=== PATIENT | male | born 1975 | race Caucasian/White ===

== ENCOUNTER 2020-08-07 12:07 | Outpatient (RCR) | payer OTHER, SELFPAY | END 2020-10-08 23:59 | LOC: IMMUN 12:07 | PROVIDERS: PCP Internal Medicine; Visit Provider Family Medicine | DX: Z23 Encounter for immunization (principal) | CPT/HCPCS: 0001A; 0002A; 91300 ==

== ENCOUNTER 2022-05-06 22:08 | Inpatient (IN) | payer OTHER, SELFPAY ==
[2022-05-06 22:09] VITALS: BP 169/103; PULSE 150; RESP 28; TEMP 37.1; O2SAT 97; BMI 46.1
--- NOTE | 2022-05-06 22:11 | EKG12_ITS ---
Test Reason : DYSRHYTHMIA Blood Pressure : / mmHG Vent. Rate : 143 BPM Atrial Rate : 143 BPM P-R Int : 132 ms QRS Dur : 076 ms QT Int : 284 ms P-R-T Axes : 055 029 029 degrees QTc Int : 438 ms Sinus tachycardia Otherwise normal ECG Confirmed by AMANDA BORJAS, JULIAN ([id number]), editorial cartoonist GUSTAVO JUDGE ([id number]) on 05/11/2022 10:33:27 AM Referred By: DI Confirmed By:GLORIA PATEL MD
[2022-05-06 23:16] VITALS: RESP 28; O2SAT 94
[2022-05-06 23:18] VITALS: BP 161/82; PULSE 138; RESP 24; TEMP 39.6; O2SAT 97
[2022-05-06] MEDS: Acetaminophen 500 MG Tablet 1000 MG PO (23:27)
[2022-05-06] MEDS: 0.9% Normal Saline 1,000 ML 999 ML IV (23:29)
[2022-05-07] VITALS (18 sets, daily range): BP systolic 94–174; BP diastolic 41–95; PULSE 97–126; RESP 20–40; TEMP 36.8–38.7; O2SAT 36–97; BMI 46.1
--- NOTE | 2022-05-07 00:03 | RAD_ITS ---
STUDY: X-RAY CHEST REASON FOR EXAM: Male, 46 years old. cough TECHNIQUE: Single AP portable view of the chest. COMPARISON: None. FINDINGS: The lungs are clear and expanded. There is no demonstrated pleural abnormality. Normal size heart. Normal mediastinum and aleena. Normal visualized pulmonary arteries. Normal visualized aortic arch and descending thoracic aorta. Normal visualized thoracic spine. Normal visualized ribs, clavicles, and shoulders. There is no demonstrated abnormality of the visualized soft tissue structures of the upper abdomen. RAD/Chest PA and Lateral IMPRESSION: Normal x-ray examination of the chest. Electronically Signed: Jordi Denton MD at 0:33 EST ,
[2022-05-07 00:13] LABS: Absolute Lymphocyte Count 0.83 X10^3/uL (0.83-4.51); Absolute Neutrophil Count 19.1 X10^3/uL (2.0-7.7); Basophil# 0.06 X10^3/uL; Basophil% 0.3 % (0-1); Eosinophil# 0.02 X10^3/uL; Eosinophils% 0.1 % (0-5); Hematocrit 48.8 % (40-54); Hemoglobin 16.1 g/dL (13.0-16.5); Lymphocyte # 0.83 X10^3/ul (0.83-4.51); Mean Corpuscular Hgb 27.2 pg (27.0-32.0); Mean Corpuscular Volume 82.6 fL (80-94); Mean Platelet Vol. 12.5 fl (6.2-12.0); Monocyte# 0.85 X10^3/uL; Monocyte% 4.1 % (0-10); NRBC Flagged by Analyzer 0 % (0-5); Neutrophil # 19.06 X10^3/uL (2.7-7.7); Neutrophil % 90.9 % (47-70); POSITIVE COUNT YES; Platelet Count 64 K/mm3 (150-450); RBC Distribution Width CV 13.2 % (11.6-14.6); RBC Distribution Width SD 39.2 fl (35.1-43.9); Red Blood Count 5.91 M/mm3 (4.6-6.2); White Blood Count 20.9 K/mm3 (4.4-11.0)
[2022-05-07 00:21] LABS: Differential Indicated SCAN CRITERIA MET
[2022-05-07 00:25] LABS: Anion Gap 7 (5-15); BUN 17 mg/dL (7-18); BUN/Creat Ratio 15.2 RATIO (10-20); Calcium,Total 9.4 mg/dL (8.5-10.1); Chloride 103 mmol/L (98-107); Creatinine, Serum 1.12 mg/dL (0.70-1.30); EST Glomerular Filtration Rate 74 mL/min (>60); Est Glom Filt Rate - Afr Amer 90 mL/min (>60); Glucose 136 mg/dL (74-106); Potassium 4.5 mmol/L (3.5-5.1); Sodium Level 136 mmol/L (136-145)
--- NOTE | 2022-05-07 00:52 | CT_ITS ---
STUDY: CTA CHEST REASON FOR EXAM: Male, 46 years old. cough RADIATION DOSAGE (If Supplied By Facility): CTDIvol = ( 36.66 ) mGy, DLP = ( 795.00 ) mGycm TECHNIQUE: The examination was performed with the intravenous administration of IV 100mL Isovue-370. Post-processing of the angiographic images was performed, with multiplanar reformation and 3D reconstruction. Individualized dose optimization techniques were used for this CT. COMPARISON: None. FINDINGS: Nonspecific nodule in the right thyroid lobe measures 1 cm. Normal enhancement of the main pulmonary artery and right and left pulmonary arteries. There is limited enhancement of the bilateral peripheral pulmonary arteries. There is no demonstrated pulmonary embolism. Normal thoracic aorta and visualized great vessels. There is no demonstrated aortic dissection. Normal heart and pericardium. Normal mediastinum. Normal hilar regions. Normal visualized trachea and bronchi. The lungs are well expanded. Normal pulmonary parenchyma. Normal pleura. Normal chest wall structures. Normal osseous structures. Normal visualized upper abdomen. CT/CTA Chest W/WO Contrast IMPRESSION: Nonspecific nodule in the right thyroid lobe measures 1 cm. There is no demonstrated pulmonary embolism or arterial dissection. Electronically Signed: Jordi Denton MD at 2:11 EST ,
[2022-05-07 01:36] LABS: Mucous, Urine 0 SEEN /hpf (<or=2+); Red Blood Cells-Urine 0 SEEN /hpf (0-5)
[2022-05-07] MEDS: 0.9% Normal Saline 1,000 ML 999 ML IV ×2 (01:51→04:19)
[2022-05-07 02:02] LABS: Color, Urine Yellow (Yellow); Glucose, Dipstick Normal (Normal); Ketone-Dipstick Negative (Negative); Leukocyte Esterase-Dipstick 500 /ul (Negative); Nitrite-Dipstick Positive (Negative); Occult Blood-Urine Negative /ul (Negative); Protein-Dipstick 30 mg/dl (Negative); Urine Bilirubin Dipstick Negative (Negative); Urine Clarity Clear (Clear); Urine Urobilinogen Normal (Normal)
[2022-05-07 02:23] LABS: Differential Comment SCANNED; Platelet Estimate MOD INC (ADEQ); Platelet Morphology LARGE
[2022-05-07 02:27] LABS: Lactic Acid 2.1 mmol/L (0.4-1.9)
--- NOTE | 2022-05-07 02:47 | EX.ED.DYSGE1 ---
HPI History of Present Illness Chief Complaint: Shortness of Breath Narrative Narrative: Patient is a 46-year-old male who reports no significant past medical history. He states that he was in a meeting today when he began to feel chilled. He states with this he had mild cough and sensation of shortness of breath. He states that secondary to the symptoms he comes in for evaluation. He denies any known sick contacts and he denies any chest pain or abdominal pain nausea vomiting or diarrhea PFSH PFSH Medical History no medical history no medical history Allergy/AdvReac Type Severity Reaction Status Date / Time No Known Allergies Allergy Verified 05/06/22 22:09 Social History Smoking Status: Never smoker ROS ROS ED Constitutional Constitutional ED: Reports chills and fever(s) ENT ENT ED: Denies rhinorrhea or sore throat Cardiovascular Cardiovascular: Reports racing heartbeat; Denies chest pain Respiratory/Chest Respiratory/Chest: Reports cough and dyspnea Gastrointestinal Gastrointestinal: Denies abdominal pain, diarrhea, nausea or vomiting Genitourinary Genitourinary ED: Denies dysuria or hematuria Musculoskeletal Musculoskeletal: Reports myalgias Integumentary Denies rash Neurologic Neurologic: Denies headache(s) Hematologic/Lymphatic Hematologic/Lymphatic: Denies easy bleeding or easy bruising EXAM Physical Exam Const Vital Signs: 05/06/22 22:09 05/06/22 22:11 05/06/22 23:16 Temperature 98.8 F Temperature Source Temporal Pulse Rate 150 H Respiratory Rate 28 H 28 H Respiratory Effort Respiratory Depth Respiratory Pattern Blood Pressure 169/103 H Blood Pressure Mean 125 Pulse Ox 97 94 Oxygen Delivery Method Room Air Room Air Room Air 05/06/22 23:18 05/07/22 00:43 05/07/22 00:00 Temperature 103.2 F H Temperature Source Oral Pulse Rate 138 H Respiratory Rate 24 H 32 H Respiratory Effort Short of Breath Respiratory Depth Normal Respiratory Pattern Tachypnea Blood Pressure 161/82 H Blood Pressure Mean 108 Pulse Ox 97 Oxygen Delivery Method Room Air Room Air 05/07/22 01:00 05/07/22 01:56 05/07/22 02:04 Temperature 101.1 F H 101.1 F H Temperature Source Oral Oral Pulse Rate 125 H 120 H 125 H Respiratory Rate 33 H 35 H 40 H Respiratory Effort Respiratory Depth Respiratory Pattern Blood Pressure 116/49 L 124/70 H 124/70 H Blood Pressure Mean 71 88 88 Pulse Ox 96 97 97 Oxygen Delivery Method Room Air Room Air Room Air 05/07/22 02:56 05/07/22 03:00 Temperature 101.5 F H 101.6 F H Temperature Source Oral Oral Pulse Rate 126 H 125 H Respiratory Rate 30 H 33 H Respiratory Effort Respiratory Depth Respiratory Pattern Blood Pressure 113/41 L 106/94 H Blood Pressure Mean 65 98 Pulse Ox 96 36 Oxygen Delivery Method Room Air Room Air Positive well nourished, well developed and obese General Appearance ED: well developed Nutritional Appearance: obese HEENT Reports moist mucous membranes Eyes PERRL and EOMs intact bilaterally Neck supple and no JVD Neck Narrative: Positive anterior cervical lymphadenopathy noted Chest Wall palpation of chest normal Resp clear to auscultation bilaterally Resp Narrative: Patient has mild tachypnea but otherwise no nasal flaring retractions or accessory muscle use and breath sounds are overall clear to auscultation Cardio regular rhythm Rate: tachycardic and other Other Details: Radial pulses are plus 2 out of 4 bilaterally are equal and symmetric GI normal to inspection, nondistended, normoactive bowel sounds, non-tender, non-distended and no masses GI Narrative: No voluntary guarding or rigidity no pulsatile mass Auscultation: normoactive bowel sounds Palpation: soft Extremity normal to inspection Extremity Narrative: No asymmetric edema no pitting edema negative Homans' sign bilaterally Neuro oriented x3 and CN's II-XII intact bilaterally Sensorium / Orientation: alert Psych mental status grossly normal Skin no rashes or lesions noted MDM MDM MDM Narrative Medical decision making narrative: Patient presented to the ER awake and alert but was febrile with a temperature up to 103 and tachycardic consistent with this. His constellation of symptoms is most likely viral in nature and therefore COVID and influenza swab were obtained. However because of the high fever and tachycardia I did elect to perform basic laboratory and imaging studies. Patient has leukocytosis at approximately 21 with thrombocytopenia. I do not have any old lab values to compare to but patient reports no past medical history. His lactic acid is also slightly elevated 2.1. Because of the tachycardia and high white count with negative viral swabs and chest x-ray elected to perform a CTA to make sure there is no missed pneumonia. CTA of the chest was negative. As he has no abdominal pain and no meningeal signs I do not feel the need for a lumbar puncture or CT of the abdomen and pelvis. Patient's urine sample did show changes consistent with infection and secondary to this it was sent for culture and he was started on Rocephin. At this time as he is qualifying for sepsis based on his fever white count and tachycardia I do not feel would be appropriate to discharge him home and therefore he will be kept in the hospital while blood cultures and urine culture are pending and he can receive IV antibiotics and fluids as needed. The plan of care was discussed with the patient and family and they are agreeable to this. Internal medicine was contacted as well and they agreed except the patient at this time Lab Data Attestation: I reviewed the patient's lab results. Labs: Laboratory Results - last 24 hr 05/07/22 05/07/22 05/07/22 00:05 00:05 01:22 WBC 20.9 H RBC 5.91 Hgb 16.1 Hct 48.8 MCV 82.6 MCH 27.2 MCHC 33.0 RDW Std Deviation 39.2 RDW Coeff of Daniel 13.2 Plt Count 64 L MPV 12.5 H Immature Gran % (Auto) 0.600 Neut % (Auto) 90.9 H Lymph % (Auto) 4.0 L [place] % (Auto) 4.1 Eos % (Auto) 0.1 Baso % (Auto) 0.3 Absolute Neuts (auto) 19.1 H Absolute Lymphs (auto) 0.83 Nucleated RBC % 0 Differential Comment SCANNED Platelet Estimate MOD INC Plt Morphology Comment LARGE Sodium 136 Potassium 4.5 Chloride 103 Carbon Dioxide 26.0 Anion Gap 7 BUN 17 Creatinine 1.12 Estim Creat Clear Calc 96.40 Est GFR (MDRD) Af Amer 90 Est GFR (MDRD) Non-Af 74 BUN/Creatinine Ratio 15.2 Glucose 136 H Lactic Acid 2.1 H* Calcium 9.4 Magnesium 2.0 Urine Color Urine Clarity Urine pH Ur Specific [place] Urine Protein Urine Glucose (UA) Urine Ketones Urine Occult Blood Urine Nitrite Urine Bilirubin Urine Urobilinogen Ur Leukocyte Esterase Urine RBC Urine WBC Ur Squamous Epith Cells Urine Bacteria Urine Mucus 05/07/22 01:28 WBC RBC Hgb Hct MCV MCH MCHC RDW Std Deviation RDW Coeff of Daniel Plt Count MPV Immature Gran % (Auto) Neut % (Auto) Lymph % (Auto) [place] % (Auto) Eos % (Auto) Baso % (Auto) Absolute Neuts (auto) Absolute Lymphs (auto) Nucleated RBC % Differential Comment Platelet Estimate Plt Morphology Comment Sodium Potassium Chloride Carbon Dioxide Anion Gap BUN Creatinine Estim Creat Clear Calc Est GFR (MDRD) Af Amer Est GFR (MDRD) Non-Af BUN/Creatinine Ratio Glucose Lactic Acid Calcium Magnesium Urine Color Yellow Urine Clarity Clear Urine pH 7.0 Ur Specific [place] 1.010 Urine Protein 30 H Urine Glucose (UA) Normal Urine Ketones Negative Urine Occult Blood Negative Urine Nitrite Positive H Urine Bilirubin Negative Urine Urobilinogen Normal Ur Leukocyte Esterase 500 H Urine RBC 0 SEEN Urine WBC 0-5 SEEN Ur Squamous Epith Cells 0-5 SEEN Urine Bacteria 1+ Urine Mucus 0 SEEN Radiography Diagnostic Testing: Clinical Impression(s) from Imaging Studies Chest X-Ray 05/07/22 00:03 IMPRESSION: Normal x-ray examination of the chest. Electronically Signed: Jordi Denton MD at 0:33 EST , Chest CTA 05/07/22 00:52 IMPRESSION: Nonspecific nodule in the right thyroid lobe measures 1 cm. There is no demonstrated pulmonary embolism or arterial dissection. Electronically Signed: Jordi Denton MD at 2:11 EST , Chest x-ray as interpreted by the emergency medicine physician reveals no acute infiltrate pneumothorax or pleural effusion Discharge Plan Triage Chief Complaint: Shortness of Breath ED Provider: Parveen Dos Santos Dx/Rx/DC Orders Clinical Impression: Urinary tract infection, Septicemia, Leukocytosis, Thrombocytopenia, Pyrexia Primary Care Provider: Kamilla Alberto Referrals: Kamilla Alberto DO [Primary Care Provider] - Disposition Disposition: Acute Care [facility]
[2022-05-07 02:48] LABS: Bacteria 1+ /hpf (None Seen); Squamous Epithelial Cells - UA 0-5 SEEN /hpf (0-5); White Blood Cells 0-5 SEEN /hpf (0-5)
[2022-05-07] MEDS: Ibuprofen 600 MG Tablet PO (03:19)
[2022-05-07] MEDS: Ceftriaxone 1 GM/50 ML BAG IV (03:20)
--- NOTE | 2022-05-07 03:45 | HP.PCM.HOS_ITS ---
HPI - General General Date of Admission: 05/07/22 Date of Service: 05/07/22 Chief Complaint: Chills HPI Narrative MEGAN CALDERON, is a 46 M with a significant history of morbid obesity who presents to the emergency department with chills. While in an in person meeting few hours before presentation patient felt chilled. Associated with his symptom is mild cough and shortness of breath. Shortness of breath is worsened with mild exertion. He is fatigue. He denies anorexia. He denies any urinary symptoms. [facility] Medical History no medical history Allergy/AdvReac Type Severity Reaction Status Date / Time No Known Allergies Allergy Verified 05/06/22 22:09 other (Denies knowledge of paternal or maternal medical history) no surgical history Social History Smoking Status: Never smoker ROS ROS Narrative Pertinent positives and pertinent negatives as noted in HPI. All other systems were reviewed and are negative Vital Signs Vital Signs Vital Signs: 05/06/22 22:09 05/06/22 22:11 05/06/22 23:16 Temperature 98.8 F Temperature Source Temporal Pulse Rate 150 H Respiratory Rate 28 H 28 H Respiratory Effort Respiratory Depth Respiratory Pattern Blood Pressure 169/103 H Blood Pressure Mean 125 Pulse Ox 97 94 Oxygen Delivery Method Room Air Room Air Room Air 05/06/22 23:18 05/07/22 00:43 05/07/22 00:00 Temperature 103.2 F H Temperature Source Oral Pulse Rate 138 H Respiratory Rate 24 H 32 H Respiratory Effort Short of Breath Respiratory Depth Normal Respiratory Pattern Tachypnea Blood Pressure 161/82 H Blood Pressure Mean 108 Pulse Ox 97 Oxygen Delivery Method Room Air Room Air 05/07/22 01:00 05/07/22 01:56 05/07/22 02:04 Temperature 101.1 F H 101.1 F H Temperature Source Oral Oral Pulse Rate 125 H 120 H 125 H Respiratory Rate 33 H 35 H 40 H Respiratory Effort Respiratory Depth Respiratory Pattern Blood Pressure 116/49 L 124/70 H 124/70 H Blood Pressure Mean 71 88 88 Pulse Ox 96 97 97 Oxygen Delivery Method Room Air Room Air Room Air 05/07/22 02:56 05/07/22 03:00 Temperature 101.5 F H 101.6 F H Temperature Source Oral Oral Pulse Rate 126 H 125 H Respiratory Rate 30 H 33 H Respiratory Effort Respiratory Depth Respiratory Pattern Blood Pressure 113/41 L 106/94 H Blood Pressure Mean 65 98 Pulse Ox 96 36 Oxygen Delivery Method Room Air Room Air Weight Weight: 167.376 kg Body Mass Index (BMI) 46.1 Physical Exam Narrative Physical exam: General: Well-nourished, well-developed. Head: Normocephalic, atraumatic, no tenderness Eyes: Vision is grossly intact. EOMI ENT, no trauma, moist mucous membranes, no rhinorrhea Neck: Nontender, No thyromegaly. CVS: Tachycardic. S1-S2 present. No murmur, gallop or rub. Respiratory : Tachypnea; clear to auscultation bilaterally, chest wall nontender, no wheezing Abdomen: Soft, nontender, nondistended, normal bowel sounds, no masses : Deferred Back: Nontender, no CVA tenderness, no midline spinal tenderness, deformities, step-offs Extremities: Nontender full range of motion, no trauma Skin: Normal color, no trauma, abrasions Neuro: Alert, oriented, cranial nerves II through XII grossly intact. Psychiatry: Normal mood. Normal affect. Not depressed. Not anxious. Results Lab / Micro Data Result Diagrams: 05/07/22 00:05 05/07/22 00:05 Labs: Laboratory Results - last 24 hr 05/07/22 00:05: WBC 20.9 H, RBC 5.91, Hgb 16.1, Hct 48.8, MCV 82.6, MCH 27.2, MCHC 33.0, RDW Std Deviation 39.2, RDW Coeff of Daniel 13.2, Plt Count 64 L, MPV 12.5 H, Immature Gran % (Auto) 0.600, Neut % (Auto) 90.9 H, Lymph % (Auto) 4.0 L , [place] % (Auto) 4.1, Eos % (Auto) 0.1, Baso % (Auto) 0.3, Absolute Neuts (auto) 19.1 H, Absolute Lymphs (auto) 0.83, Nucleated RBC % 0, Differential Comment SCANNED, Platelet Estimate MOD INC, Plt Morphology Comment LARGE 05/07/22 00:05: Sodium 136, Potassium 4.5, Chloride 103, Carbon Dioxide 26.0, Anion Gap 7, BUN 17, Creatinine 1.12, Estim Creat Clear Calc 96.40, Est GFR (MDRD) Af Amer 90, Est GFR (MDRD) Non-Af 74, BUN/Creatinine Ratio 15.2, Glucose 136 H, Calcium 9.4, Magnesium 2.0 05/07/22 01:22: Lactic Acid 2.1 H* 05/07/22 01:28: Urine Color Yellow, Urine Clarity Clear, Urine pH 7.0, Ur Specific [place] 1.010, Urine Protein 30 H, Urine Glucose (UA) Normal, Urine Ketones Negative, Urine Occult Blood Negative, Urine Nitrite Positive H, Urine Bilirubin Negative, Urine Urobilinogen Normal, Ur Leukocyte Esterase 500 H, Urine RBC 0 SEEN, Urine WBC 0-5 SEEN, Ur Squamous Epith Cells 0-5 SEEN, Urine Bacteria 1+, Urine Mucus 0 SEEN Micro: Microbiology 05/06/22 23:15 Nasal Secretion SARS-CoV-2 & FLU Antigen (Rapid) - Final Radiology Impression Chest X-Ray 05/07/22 00:03 IMPRESSION: Normal x-ray examination of the chest. Electronically Signed: Jordi Denton MD at 0:33 EST , Chest CTA 05/07/22 00:52 IMPRESSION: Nonspecific nodule in the right thyroid lobe measures 1 cm. There is no demonstrated pulmonary embolism or arterial dissection. Electronically Signed: Jordi Denton MD at 2:11 EST , Assessment & Plan Assessment/Plan (1) Abnormal urinalysis: (2) Viral syndrome: (3) SIRS (systemic inflammatory response syndrome): PLAN: Plan Viral syndrome Rapid COVID and rapid influenza was negative. We will check comprehensive respiratory pathogen panel SIRS/abnormal Patient has tachycardia, tachypnea; and fever with T-max of 103.2 Fahrenheit. White count of 20,900. Urinalysis is abnormal. However there is no pyuria. Morbid patient has no urinary symptoms. Sepsis ruled out. Blood cultures obtained in the emergency department Chest x-ray was visualized and independent interpreted and I agree with radiologist interpretation of normal x-ray of the chest. Rocephin started at the emergency department and continued cautiously. Thyroid nodule CTA with thyroid nodule. Check TSH and ultrasound of thyroid Morbid Obesity: BMI: 46.1 kg/m?. Complicates care. Lifestyle modification recommended. Charges/Coding Visit Charges Inpatient E&M: 95815 Init Hosp L3
[2022-05-07 05:34] LABS: Reflex Lactate? Y
--- NOTE | 2022-05-07 05:59 | US_ITS ---
EXAM: US SOFT TISSUES HEAD AND NECK, THYROID CLINICAL INDICATION: Thyroid nodule on CTA TECHNIQUE: Fournier scale and color doppler imaging was performed of the thyroid gland. This report was created using [employer] software report generation technology. COMPARISON: CTA chest 05/07/2022 FINDINGS: LEFT THYROID LOBE: Left thyroid lobe measures 5.2 x 2.0 x 1.4 cm. Normal echogenicity. No thyroid nodules are present. RIGHT THYROID LOBE: Right thyroid lobe measures 5.6 x 2.6 x 2.2 cm. 2.4 cm right thyroid nodule. This nodule is mixed cystic and solid, isoechoic, [id number], smoothly marginated and contains no echogenic foci. TI-RADS points: 2. TI-RADS category: TR2. This nodule is not suspicious and no FNA or follow-up is necessary. Additional 8 mm right thyroid nodule This nodule is solid, isoechoic, [id number], smoothly marginated and contains no echogenic foci. TI-RADS points: 3. TI-RADS category: TR3. This nodule is mildly suspicious but no FNA or follow-up is necessary given the small size of this nodule. ISTHMUS: The isthmus measures 2.3 mm in AP dimension. No thyroid nodules are present. US/Thyroid IMPRESSION: Right-sided thyroid nodules as described. No follow-up indicated. Electronically Signed: Tej Richter MD at 14:23 EST ,
[2022-05-07 06:36] LABS: Lactic Acid 1.6 mmol/L (0.4-1.9)
--- NOTE | 2022-05-07 09:17 | PCM.PN.HOSP ---
Subjective Subjective Feels better. His fever broke. Denies any diarrhea. Denies dysuria. I saw him initially but then some erythema showed up on his right lower extremity. Objective Data Objective Data Vital Signs: Vital Signs Temp Pulse Resp BP Pulse Ox O2 Del Method 36.8 C 102 H 20 H 120/60 97 Room Air 05/07/22 07:01 05/07/22 07:01 05/07/22 07:01 05/07/22 07:01 05/07/22 08:07 05/07/22 08:07 Oxygen Delivery Method Room Air Weight: 167.376 kg Body Mass Index (BMI) 46.1 Intake & Output: Intake and Output for Last 24 Hours 05/05/22 05/06/22 05/07/22 23:59 23:59 23:59 Intake Total 3050 / 3050 Balance 3050 / 3050 Lab / Micro Data Result Diagrams: 05/07/22 00:05 05/07/22 00:05 Labs: Laboratory Results - last 24 hr 05/07/22 00:05: WBC 20.9 H, RBC 5.91, Hgb 16.1, Hct 48.8, MCV 82.6, MCH 27.2, MCHC 33.0, RDW Std Deviation 39.2, RDW Coeff of Daniel 13.2, Plt Count 64 L, MPV 12.5 H, Immature Gran % (Auto) 0.600, Neut % (Auto) 90.9 H, Lymph % (Auto) 4.0 L, [place] % (Auto) 4.1, Eos % (Auto) 0.1, Baso % (Auto) 0.3, Absolute Neuts (auto) 19.1 H, Absolute Lymphs (auto) 0.83, Nucleated RBC % 0, Differential Comment SCANNED, Platelet Estimate MOD INC, Plt Morphology Comment LARGE 05/07/22 00:05: Sodium 136, Potassium 4.5, Chloride 103, Carbon Dioxide 26.0, Anion Gap 7, BUN 17, Creatinine 1.12, Estim Creat Clear Calc 96.40, Est GFR (MDRD) Af Amer 90, Est GFR (MDRD) Non-Af 74, BUN/Creatinine Ratio 15.2, Glucose 136 H, Calcium 9.4, Magnesium 2.0 05/07/22 00:05: TSH 1.70 05/07/22 01:22: Lactic Acid 2.1 H* 05/07/22 01:28: Urine Color Yellow, Urine Clarity Clear, Urine pH 7.0, Ur Specific [place] 1.010, Urine Protein 30 H, Urine Glucose (UA) Normal, Urine Ketones Negative, Urine Occult Blood Negative, Urine Nitrite Positive H, Urine Bilirubin Negative, Urine Urobilinogen Normal, Ur Leukocyte Esterase 500 H, Urine RBC 0 SEEN, Urine WBC 0-5 SEEN, Ur Squamous Epith Cells 0-5 SEEN, Urine Bacteria 1+, Urine Mucus 0 SEEN 05/07/22 06:05: Lactic Acid 1.6 Micro: Microbiology 05/07/22 04:12 Mucosa - Nasopharyngeal Respiratory Panel (PCR) - Final 05/06/22 23:15 Nasal Secretion SARS-CoV-2 & FLU Antigen (Rapid) - Final Radiography Diagnostic Testing: Radiology Impression Chest X-Ray 05/07/22 00:03 IMPRESSION: Normal x-ray examination of the chest. Electronically Signed: Jordi Denton MD at 0:33 EST Reading Location ID and State: [facility] / [place] Tel , Service support , Chest CTA 05/07/22 00:52 IMPRESSION: Nonspecific nodule in the right thyroid lobe measures 1 cm. There is no demonstrated pulmonary embolism or arterial dissection. Electronically Signed: Jordi Denton MD at 2:11 EST , Physical Exam Narrative Nontoxic-appearing. Afebrile. Eyes PERRL Neck no lymphadenopathy Neck Narrative: No meningismus Resp normal respiratory effort, no retractions, no use of accessory muscles and clear to auscultation bilaterally Cardio regular rate, regular rhythm, S1 normal heart sound and S2 normal heart sound GI normal to inspection, nondistended, normoactive bowel sounds and soft to palpation Skin Skin Narrative: Feet warm erythema on his right medial lower leg. No fluctuance nor induration noted. Assessment & Plan Assessment/Plan (1) Cellulitis of right leg: PLAN: Offer the patient the opportunity to stay in the hospital and receive IV antibiotics versus going home taking oral antibiotics. He chose going home with oral antibiotics. He and his , who is at bedside, state they have had a daughters had cellulitis before though the patient has never had cellulitis himself. We will discharge him with Bactrim for 7 days. Advised them to demarcate the area with a sharpie or a marker and to see if it does become worse to notify someone or return to the emergency room. I also advised him to keep his right leg elevated and to refrain from any strenuous activity or returning work for the next 48 hours. (2) Abnormal urinalysis: PLAN: 0-5 white blood cells. Urinary tract infection ruled out (3) Viral syndrome: PLAN: Ruled out. Patient had flulike symptoms due to his right lower extremity cellulitis. Symptoms began before the cellulitis presented. COVID-19 and influenza rapid test were negative Respiratory panel also negative CT of the chest was negative Urinalysis is negative (4) SIRS (systemic inflammatory response syndrome): PLAN: Patient has tachycardia, tachypnea; and fever with T-max of 103.2 Fahrenheit. White count of 20,900. Urinalysis is abnormal. However there is no pyuria. Morbid patient has no urinary symptoms. Sepsis ruled out. Blood cultures obtained in the emergency department Chest x-ray was visualized and independent interpreted and I agree with radiologist interpretation of normal x-ray of the chest. Discontinue ceftriaxone as patient has no urinary tract infection (5) Thyroid nodule: PLAN: thyroid nodule CTA with thyroid nodule. Check TSH and ultrasound of thyroid TSH WNL Ultrasound performed and was unremarkable. Report mention no additional follow-up needed. PLAN: Plan Morbid Obesity: BMI: 46.1 kg/m?. Complicates care. Lifestyle modification recommended.
[2022-05-07] MEDS: Acetaminophen 325 MG Tablet 650 MG PO (15:12)
--- NOTE | 2022-05-07 16:06 | DCINST_ITS ---
Discharge Instructions Diet Discharge Diet: No restrictions Activity Return to work on:: 05/10/22 Keep extremity elevated above heart level: Right Leg Dressing / Incision Call your doctor if your incision/area has: Continuous Slow Oozing, Increased Pain/ Swelling and Increased Redness Follow Up Care Test Results: Test results from this visit will be discussed in further detail at your follow- up appointment, if applicable. Discharge Plan Admission Admit Date/Time: 05/07/22 03:32 Primary Reason for Your Visit: Right leg cellulitis Attending Provider: Medardo Stiles Primary Care Provider: Kamilla Alberto Consulting Providers: Royce Beebe Instructions Additional Instructions / Restrictions: Homero the redness off on your right leg. If spreads beyond that area, or you are feeling worse. return to the ED. Discharge Orders/Prescriptions Prescriptions: New acetaminophen 500 mg capsule 1,000 mg PO Q8H PRN PRN (Reason: fever or pain) Qty: 30 0RF ibuprofen 600 mg tablet 600 mg PO Q6H PRN (Reason: fever or pain) Qty: 30 0RF sulfamethoxazole-trimethoprim [Bactrim DS] 800-160 mg tablet 1 tab PO Q12H Qty: 14 0RF Referrals / Follow Up: Kamilla Alberto DO [Primary Care Provider] - Within 1 Week Disposition Disposition (needs filled in before D/C Order can be placed): Home, Self Care
--- NOTE | 2022-05-07 16:11 | DS.PCM_ITS ---
Providers Date of Admission: 05/07/22 Primary Care Physician: Dr. Kamilla Alberto, DO Reason For Visit: VIRAL ILLNESS Diagnosis Discharge Diagnosis (1) Cellulitis of right leg: Status: Acute Code(s): L03.115 - Cellulitis of right lower limb Plan: Offer the patient the opportunity to stay in the hospital and receive IV antibiotics versus going home taking oral antibiotics. He chose going home with oral antibiotics. He and his , who is at bedside, state they have had a daughters had cellulitis before though the patient has never had cellulitis himself. We will discharge him with Bactrim for 7 days. Advised them to demarcate the area with a sharpie or a marker and to see if it does become worse to notify someone or return to the emergency room. I also advised him to keep his right leg elevated and to refrain from any strenuous activity or returning work for the next 48 hours. (2) Abnormal urinalysis: Status: Acute Code(s): R82.90 - Unspecified abnormal findings in urine Plan: 0-5 white blood cells. Urinary tract infection ruled out (3) Viral syndrome: Status: Acute Code(s): B34.9 - Viral infection, unspecified Plan: Ruled out. Patient had flulike symptoms due to his right lower extremity cellulitis. Symptoms began before the cellulitis presented. COVID-19 and influenza rapid test were negative Respiratory panel also negative CT of the chest was negative Urinalysis is negative (4) SIRS (systemic inflammatory response syndrome): Status: Acute Code(s): R65.10 - Systemic inflammatory response syndrome (SIRS) of non-infectious origin without acute organ dysfunction Plan: Patient has tachycardia, tachypnea; and fever with T-max of 103.2 Fahrenheit. White count of 20,900. Urinalysis is abnormal. However there is no pyuria. Morbid patient has no urinary symptoms. Sepsis ruled out. Blood cultures obtained in the emergency department Chest x-ray was visualized and independent interpreted and I agree with radiologist interpretation of normal x-ray of the chest. Discontinue ceftriaxone as patient has no urinary tract infection (5) Thyroid nodule: Status: Acute Code(s): E04.1 - Nontoxic single thyroid nodule Plan: thyroid nodule CTA with thyroid nodule. Check TSH and ultrasound of thyroid TSH WNL Ultrasound performed and was unremarkable. Report mention no additional follow- up needed. Plan Morbid Obesity: BMI: 46.1 kg/m?. Complicates care. Lifestyle modification recommended. Medications at Discharge Home Medications acetaminophen 500 mg capsule 1,000 mg PO Q8H PRN PRN fever or pain #30 caps 05/07/22 ibuprofen 600 mg tablet 600 mg PO Q6H PRN fever or pain #30 tabs 05/07/22 sulfamethoxazole 800 mg-trimethoprim 160 mg tablet (Bactrim DS) 1 tab PO Q12H #14 tabs 05/07/22 Hospital Course Operations None Procedures None Summary of Care Provided Minutes Spent on Discharge: 70 Weight / BMI Weight Weight: 167.376 kg Body Mass Index (BMI) 46.1 ABG / Lab / Microbiology Data Result Diagrams: 05/07/22 00:05 05/07/22 00:05 Laboratory: Laboratory Results - last 24 hr 05/07/22 00:05: WBC 20.9 H, RBC 5.91, Hgb 16.1, Hct 48.8, MCV 82.6, MCH 27.2, MCHC 33.0, RDW Std Deviation 39.2, RDW Coeff of Daniel 13.2, Plt Count 64 L, MPV 12.5 H, Immature Gran % (Auto) 0.600, Neut % (Auto) 90.9 H, Lymph % (Auto) 4.0 L , [place] % (Auto) 4.1, Eos % (Auto) 0.1, Baso % (Auto) 0.3, Absolute Neuts (auto) 19.1 H, Absolute Lymphs (auto) 0.83, Nucleated RBC % 0, Differential Comment SCANNED, Platelet Estimate MOD INC, Plt Morphology Comment LARGE 05/07/22 00:05: Sodium 136, Potassium 4.5, Chloride 103, Carbon Dioxide 26.0, Anion Gap 7, BUN 17, Creatinine 1.12, Estim Creat Clear Calc 96.40, Est GFR (MDRD) Af Amer 90, Est GFR (MDRD) Non-Af 74, BUN/Creatinine Ratio 15.2, Glucose 136 H, Calcium 9.4, Magnesium 2.0 05/07/22 00:05: TSH 1.70 05/07/22 01:22: Lactic Acid 2.1 H* 05/07/22 01:28: Urine Color Yellow, Urine Clarity Clear, Urine pH 7.0, Ur Specific [place] 1.010, Urine Protein 30 H, Urine Glucose (UA) Normal, Urine Ketones Negative, Urine Occult Blood Negative, Urine Nitrite Positive H, Urine Bilirubin Negative, Urine Urobilinogen Normal, Ur Leukocyte Esterase 500 H, Urine RBC 0 SEEN, Urine WBC 0-5 SEEN, Ur Squamous Epith Cells 0-5 SEEN, Urine Bacteria 1+, Urine Mucus 0 SEEN 05/07/22 06:05: Lactic Acid 1.6 Microbiology: Microbiology 05/07/22 04:12 Mucosa - Nasopharyngeal Respiratory Panel (PCR) - Final 05/06/22 23:15 Nasal Secretion SARS-CoV-2 & FLU Antigen (Rapid) - Final Radiography Diagnostic Testing: Radiology Impression Chest X-Ray 05/07/22 00:03 IMPRESSION: Normal x-ray examination of the chest. Electronically Signed: Jordi Denton MD at 0:33 EST , Chest CTA 05/07/22 00:52 IMPRESSION: Nonspecific nodule in the right thyroid lobe measures 1 cm. There is no demonstrated pulmonary embolism or arterial dissection. Electronically Signed: Jordi Denton MD at 2:11 EST , Thyroid Ultrasound 05/07/22 05:59 IMPRESSION: Right-sided thyroid nodules as described. No follow-up indicated. Electronically Signed: Tej Richter MD at 14:23 EST , D/C Instructions Discharge Diet: No restrictions Return to work on: 05/10/22 Keep extremity elevated above heart level: Right Leg Call your doctor if your incision/area has: Continuous Slow Oozing, Increased Pain/ Swelling and Increased Redness Meaningful Use Info Meaningful Use Diagnoses (Choose all that apply): None applicable Discharge Plan Admission Admit Date/Time: 05/07/22 03:32 Primary Reason for Your Visit: Right leg cellulitis Attending Provider: Medardo Stiles Primary Care Provider: Kamilla Alberto Consulting Providers: Royce Beebe Instructions Additional Instructions / Restrictions: Homero the redness off on your right leg. If spreads beyond that area, or you are feeling worse. return to the ED. Discharge Orders/Prescriptions Prescriptions: New acetaminophen 500 mg capsule 1,000 mg PO Q8H PRN PRN (Reason: fever or pain) Qty: 30 0RF ibuprofen 600 mg tablet 600 mg PO Q6H PRN (Reason: fever or pain) Qty: 30 0RF sulfamethoxazole-trimethoprim [Bactrim DS] 800-160 mg tablet 1 tab PO Q12H Qty: 14 0RF Referrals / Follow Up: Kamilla Alberto DO [Primary Care Provider] - Within 1 Week Disposition Disposition (needs filled in before D/C Order can be placed): Home, Self Care Charges/Coding Visit Charges OBSV E&M: 10568 Observ/hosp same date L2
--- NOTE | 2022-05-07 16:35 | CM.ED ---
SW note SW met with RN Lety who stated patient had no oxygen needs at discharge. SW met with patient. Patient indicated he is feeling better. Patient is comfortable with plan for discharge home. No concerns voiced. SW inquired if patient has any discharge needs and he said no. No further SW needs at this time. Jazmín ASENCIO
== END 2022-05-07 16:43 | disposition home or self-care (01) | DRG 603 ==
LOC: ED 05-07 03:53 → PCU 05-07 06:31
PROVIDERS: Admitting Provider Hospitalist; Emergency Provider Emergency Medicine; PCP Internal Medicine
DX: L03.115 Cellulitis of right lower limb (principal); Z68.42 Body mass index [BMI] 45.0-49.9, adult; E04.1 Nontoxic single thyroid nodule; E66.01 Morbid (severe) obesity due to excess calories
CPT/HCPCS: 71046; 71275; 76536; 80048; 81001; 83605; 83735; 84443; 85025; 87040; 87086; 87088; 87428; 87633; 93005; 94760; 99284; J7030; Q9967; A4216

== ENCOUNTER → 2023-12-02 | Outpatient (CLI) | payer OTHER, SELFPAY ==
--- NOTE | 2023-12-02 16:58 | US_ITS ---
EXAM: US SOFT TISSUES HEAD AND NECK, THYROID CLINICAL INDICATION: THYROID ULTRASOUND ([id number]) : eval 1cm nodule R thyroid -- Thyroid nodule TECHNIQUE: Greyscale and color doppler imaging was performed of the thyroid gland. COMPARISON: Thyroid ultrasound, 05/07/2022. FINDINGS: LEFT THYROID LOBE: The left thyroid lobe measures 5.0 x 1.9 x 2.0 cm. Homogeneous echotexture with normal vascularity. No thyroid nodules are present. RIGHT THYROID LOBE: The right thyroid lobe measures 5.2 x 2.2 x 2.2 cm. Within the mid right thyroid lobe, there is a 1.3 cm nodule. This nodule is mixed cystic and solid, hypoechoic, [id number], ill-defined and contains no echogenic foci. TI-RADS points: 3. TI-RADS category: TR3. This nodule is mildly suspicious but no FNA or follow-up is necessary given the small size of this nodule. Within the anterior aspect of the mid right thyroid lobe, there is a 1 cm nodule. This nodule is solid or almost completely solid, hyperechoic or isoechoic, [id number], ill-defined and contains no echogenic foci. TI-RADS points: 3. TI-RADS category: TR3. This nodule is mildly suspicious but no FNA or follow-up is necessary given the small size of this nodule. ISTHMUS: The thyroid isthmus measures 4 mm. No thyroid nodules are present. US/Head/Neck Soft Tissue IMPRESSION: Thyroid nodules as above. These are mildly suspicious although no FNA or follow-up is necessary given the small size of these nodules. Electronically Signed: Sumit Loredo DO at 23:47 EDT ,
== END | disposition home or self-care (01) ==
LOC: US 16:55
PROVIDERS: PCP Nurse Practitioner Family; Referring Provider Nurse Practitioner Family; Visit Provider Nurse Practitioner Family
DX: E04.1 Nontoxic single thyroid nodule (principal)
CPT/HCPCS: 76536

== ENCOUNTER → 2023-12-27 | Outpatient (CLI) | payer OTHER, SELFPAY ==
[2023-12-27 16:29] LABS: Free T3 2.6 pg/mL (2.18-3.98); T4 Total, Thyroxin 8.5 ug/dL (4.5-12.1)
== END | disposition home or self-care (01) ==
LOC: OLS.ABSOLU 14:50 → LAB 12-28 11:44
PROVIDERS: PCP Nurse Practitioner Family; Referring Provider Surgery; Visit Provider Surgery
DX: E04.1 Nontoxic single thyroid nodule (principal)
CPT/HCPCS: 36415; 84436; 84443; 84481

== ENCOUNTER 2024-12-28 06:58 | Day surgery (SDC) | payer OTHER, SELFPAY ==
[2024-12-28] VITALS (7 sets, daily range): BP systolic 87–144; BP diastolic 37–89; PULSE 84–101; RESP 16–18; TEMP 36.5–36.6; O2SAT 95–100; BMI 43.2
--- OUTSIDE RECORDS SUMMARY | 2024-12-28 07:02 | XMS RPT_ITS | CCD ---
Author Organization [facility] Care Team Providers Care Quality Assurance Practice Manager Name Role Phone ANNA BRIDGES (DATA MANAGEMENT ANALYST) Unavailable Unavailable Kamilla Alberto Unavailable Tala Bell Unavailable Brie Mejia Unavailable Unavailable Ninoska Rene Unavailable Unavailable Unavailable Kamilla Alberto DO Unavailable Tala Bell MD Unavailable [phone] Gravius DANDY OPERATOR, Mariana Unavailable Unavailable Unavailable Unavailable Dr. Kamilla Alberto Primary Care Provider Dr. Parveen Dos Santos Emergency Provider Dr. Royce Beebe Attending Provider Friend, Yemi Attending Unavailable Marcia Antonio Referring Unavailable Marcia Antonio Primary Care Unavailable Allergies Allergy Classification Reported Allergen(s) Allergy Type Date of Onset Reaction(s) Facility (6 sources) Dust; Translations: [Dust] allergy to substance [facility] Work Phone: (6 sources) Pollen; Translations: [Pollens] allergy to substance [facility] Work Phone: Medications Completed/Discontinued Medications Medication Drug Class(es) Dates Sig (Normalized) Sig (Original) Alegra D (4 sources) Alegra D Inactiv e amoxicillin 875 mg / clavulanate 125 mg oral tablet (6 sources) Penicillin-class Antibacterial Start: 02-14-2016 End: 02-24-2016 take 1 tablet by mouth twice daily Augmentin 875-125 MG Oral Tablet 1 Tablet bid for 10 days Quantity: 20 {Tablet} Refills: 0 Ordered: 14-Feb-2016 Kamilla Alberto DO Remy GUEVARA Kamilla Start : 14-Feb-2016 End : 24-Feb-2016 Inactive betamethasone 1 mg/ml topical cream (6 sources) Corticosteroid Start: 10-30-2014 End: 03-08-2015 BETAMETHASONE VALERATE, 0.1% (External Cream) uad Cream apply to affected area(s) qd prn for 0 days Quantity: 60 {Gram} Refills: 0 Ordered: 08-Mar-2015 JERAD Smith LPN Start : 30-Oct-2014 End : 08-Mar-2015 Inactive buPROPion / Naltrexone (4 sources) Opioid Antagonist, Aminoketone Start: 07-12-2015 End: 02-14-2016 CONTRAVE, 8/ 90MG (Oral Tablet) (Free Text) 1 (one) Tablet uad for 30 days Refills: 1 Ordered: 14-Feb-2016 Duane Mitchell RN Start : 12-Jul-2015 End : 14-Feb-2016 Inactive Comments: start 1 at night for 1 week then 1 bid for 1 week then 2 in am and 1 at night for 1 week then 2 bid. BMI 38.95 Start: 07-12-2015 End: 02-14-2016 CONTRAVE, 8/ 90MG (Oral Tabl et) (Free Text) 1 (one) Tablet uad for 30 days Refills: 1 Ordered: 14-Feb-2016 Duane Mitchell LPN Start : 12-Jul-2015 End : 14-Feb-2016 Inactive Comments: start 1 at night for 1 week then 1 bid for 1 week then 2 in am and 1 at night for 1 week then 2 bid. BMI 38.95 Comment on above: start 1 at night for 1 week then 1 bid for 1 week then 2 in am and 1 at night for 1 week then 2 bid. BMI 38.95 cholecalciferol 0.05 mg oral capsule (6 sources) Vitamin D Start: 11-22-19 19 take 1 capsule by mouth once daily Vitamin D3 50 MCG (1999 UT) Oral Capsule 1 (one) Capsule daily for 0 days Quantity: 30 {Capsule} Refills: 0 Ordered: 16-Aug-2019 Mariana Coello CMA Start : 21-Nov-2018 Active 24 hr clarithromycin 500 mg extended release oral tablet (6 sources) Macrolide Antimicrobial Start: 08-07-19 End: 08-21-19 take 2 tablets by mouth once daily BIAXIN XL PAC, 500MG (Oral Tablet Extended Release 24 Hour) 2 (two) Tablet ER 24HR daily for 14 days Quantity: 28 {Tablet_ER_24HR} Refills: 0 Ordered: 19-Nov-2009 Ninoska Rene Start : 06-Aug-2009 End : 20-Aug-2009 Inactive Start: 08-06-2009 End: 08-20-2009 take 2 tablets by mouth once daily BIAXIN XL PAC, 500MG (Oral Tablet Extended Release 24 Hour) 2 (two) Tablet ER 24HR daily for 14 days Quantity: 28 {Tablet_ER_24HR} Refills: 0 Ordered: 19-Nov-2009 Ninoska Rene CNP Start : 06-Aug-2009 End : 20-Aug-2009 Inactive clotrimazole 10 mg/ml topical cream (6 sources) Azole Antifungal Start: 04-11-2019 Clotrimazole Anti-Fungal 1 % External Cream 1 (one) Application bid for 0 days Quantity: 90 {Gram} Refills: 0 Ordered: 11-Apr-2019 Mode LONGOMariana Start : 11-Apr-2019 Active Start: 11-21-2018 Clotrimazole A nti-Fungal 1 % External Cream 1 (one) Application bid for 0 days Quantity: 90 {Gram} Refills: 0 Ordered: 21-Nov-2018 Ninoska Rene CNP Start : 21-Nov-2018 Active codeine phosphate 2 mg/ml / guaiFENesin 20 mg/ml oral solution (6 sources) Opioid Agonist Start: 08-06-2009 GUAIATUSSIN AC, 100-10MG/5ML (Oral Syrup) 1 Teaspoon(s) qhs prn for 0 days Quantity: 6 {Ounce(s)} Refills: 0 Ordered: 20-Dec-2009 Duane Mitchell RN Start : 06-Aug-2009 Inactive desonide 0.5 mg/ml topical cream (6 sources) Corticosteroid Start: 06-11-2015 End: 06-11-2015 DESOWEN, 0.05% (External Cream) 1 (one) application(s) twice daily as needed for 30 days Quantity: 1 {Tube} Refills: 0 Ordered: 11-Jun-2015 Tala Bell MD Start : 11-Jun-2015 End : 11-Jun-2015 Inactive Comments: Medication taken as needed. Comment on above: Medication taken as needed. desoximetasone 2.5 mg/ml topical cream (6 sources) Corticosteroid Start: 08-06-2009 TOPICORT, 0.25% (External Cream) 1 Cream bid for 0 days Quantity: 1 {Tube(s)} Refills: 1 Ordered: 20-Dec-2009 Duane Mitchell RN Start : 06-Aug-2009 Inactive 12 hr fexofenadine hydrochloride 60 mg / pseudoephedrine hydrochloride 120 mg extended release oral tablet (6 sources) alpha-Adrenergic Agonist, Histamine-1 Receptor Antagonist Start: 01-24-2010 End: 11-27-2010 take 60-120 mg by mouth every twelve hours as needed NGUYỄN-D 12 HOUR, 60-120MG (Oral Tablet Extended Release 12 Hour) 1 Tablet ER 12HR q12hr prn for 0 days Quantity: 60 {Tablet_ER_12HR} Refills: 7 Ordered: 24-Jan-2010 Duane Mitchell RN Start : 24-Jan-2010 End : 27-Nov-2010 Discontinued Comments: This order discontinued per [facility]. Comment on above: This order discontin ued per [facility]. hydrocortisone valerate 2 mg/ml topical cream (6 sources) Corticosteroid Start: 10-30-2014 End: 10-30-2014 HYDROCORTISONE VALERATE, 0.2% (External Cream) 1 (one) Cream apply qd for 0 days Quantity: 30 {Gram} Refills: 1 Ordered: 30-Oct-2014 Tala Bell MD Start : 30-Oct-2014 End : 30-Oct-2014 Inactive irbesartan 300 mg oral tablet (6 sources) Angiotensin 2 Receptor Jovi Start: 07-03-2009 End: 07-10-2009 take 1 tablet by mouth once daily AVAPRO, 300MG (Oral Tablet) 1 (one) Tablet daily for 7 days Refills: 0 Ordered: 10-Jul-2009 Ninoska Rene Start : 03-Jul-2009 End : 10-Jul-2009 Inactive levocetirizine dihydrochloride 5 mg oral tablet (6 sources) Histamine-1 Receptor Antagonist Start: 01-06-2011 End: 05-22-2011 take 1 tablet by mouth once daily XYZAL, 5MG (Oral Tablet) 1 Tablet qd for 0 days Quantity: 30 {Tablet} Refills: 4 Ordered: 22-May-2011 Duane Mitchell RN Start : 06-Jan-2011 End : 22-May-2011 Inactive naproxen 500 mg oral tablet (6 sources) Nonsteroidal Anti-inflammatory Drug Start: 11-27-2010 End: 05-22-2011 take 1 tablet by mouth twice daily at mealtime NAPROSYN, 500MG (Oral Tablet) 1 Tablet bid for 0 days Quantity: 30 Refills: 0 Ordered: 22-May-2011 Duane Mitchlel RN Start : 27-Nov-2010 End : 22-May-2011 Inactive Comments: take with food Comment on above: take with food olopatadine 1 mg/ml ophthalmic solution (6 sources) Histamine-1 Receptor Inhibitor Start: 01-06-2014 End: 06-13-2014 PATANOL, 0.1% (Ophthalmic Solution) Solution Use as Directed for 30 days Quantity: 1 {Solution} Refills: 1 Ordered: 13-Jun-2014 Leslie Harkins LPN Start : 06-Jan-2014 End : 13-Jun-2014 Discontinued oseltamivir 75 mg oral capsule (6 sources) Neuraminidase Inhibitor Start: 02-27-2009 End: 03-04-2009 take 1 capsule by mouth twice daily TAMIFLU, 75MG (Oral Capsule) 1 (one) Capsule bid for 5 days Quantity: 10 {Capsule} Refills: 0 Ordered: 27-Feb-2009 Melaniemarty Ninoska Start : 27-Feb-2009 End : 04-Mar-2009 Inactive prednisoLONE 3 mg/ml oral solution (3 sources) Corticosteroid Start: 05-29-2021 prednisoLONE 15 MG/5ML Oral Syrup 1 (one) Milliliter 10 ml swish and spit up to 4 times a day prn mouth sores for 0 days Quantity: 100 {Milliliter} Refills: 0 Ordered: 29-May-2021 Tala Bell MD Start : 29-May-2021 Active Comments: do 100 ml of prednisolone with 20 ml of vicous lidocaine to total 60 ml Comment on above: do 100 ml of prednis olone with 20 ml of vicous lidocaine to total 60 ml predniSONE 10 mg oral tablet (6 sources) Start: 10-29-2014 End: 03-08-2015 PREDNISONE, 10MG (Oral Tablet) 3 (three) Tablet daily for 10 days for 0 days Quantity: 30 {Tablet} Refills: 0 Ordered: 08-Mar-2015 JERAD Smith LPN Start : 29-Oct-2014 End : 08-Mar-2015 Inactive Comments: take with food in am Comment on above: take with food in am sulfamethoxazole 800 mg / trimethoprim 160 mg oral tablet (6 sources) Dihydrofolate Reductase Inhibitor Antibacterial, Sulfonamide Antimicrobial Start: 12-17-2010 End: 12-24-2010 take 1 tablet by mouth twice daily BACTRIM DS, 800-160MG (Oral Tablet) 1 Tablet bid for 7 days Quantity: 14 {Tablet} Refills: 0 Ordered: 17-Dec-2010 Ninsoka Rene Start : 17-Dec-2010 End : 24-Dec-2010 Inactive triamcinolone acetonide 1 mg/ml topical cream (6 sources) Corticosteroid Start: 06-11-2015 End: 07-12-2015 TRIAMCINOLONE ACETONIDE, 0.1% (External Cream) uad Cream bid to affected area(s) prn for 0 days Quantity: 30 {Gram} Refills: 1 Ordered: 12-Jul-2015 JERAD Smith LPN Start : 11-Jun-2015 End : 12-Jul-2015 Inactive NEGATED: Highlighted row has not occurred!drug or medication (3 sources) No Known Historical Medications NEGATED: Highlighted row has not occurred!No Known Historical Medications (1 source) No Known Historical Medications Problems Active Problems Problem Classification Problem Date Documented Date Episodic/Chronic Allergic reactions (20 sources) Contact dermatitis; Translations: [Contact dermatitis due to poison rafa] Resolved: 03-08-2015 03-08-2015 Episodic Coagulation and hemorrhagic disorders (2 sources) Thrombocytopenic disorder; Translations: [Thrombocytopenia, unspecified] Chronic Diseases of mouth; excluding dental (5 sources) Oral lesion; Translations: [Mouth sores] 05-29-2021 Episodic Diseases of white blood cells (2 sources) Leukocytosis; Translations: [Elevated white blood cell count, unspecified] Chronic Fever of unknown origin (14 sources) Fever; Translations: [Fever] Resolved: 03-08-2015 03-08-2015 Episodic Genitourinary symptoms and ill-defined conditions (2 sources) Abnormal urinalysis; Translations: [Unspecified abnormal findings in urine] Episodic Immunizations and screening for infectious disease (10 sources) Encounter for immunization; Translations: [Need for prophylactic vaccination and inoculation against influenza] Onset: 02-12-2018 Resolved: 03-08-2015 03-08-2015 Episodic Influenza (18 sources) Influenza with non-respiratory manifestation; Translations: [Influenza with other manifestations] Resolved: 03-12-2009 03-08-2015 Episodic Mood disorders (18 sources) Mood disorders; Translations: [Depression 311.0 (Renamed from Depression)] Onset: 05-03-2001 11-21-2018 Comment on above: situational, tried g eodon, treat few years. good off, see lopez once every 8-9 months. see rajat sotelo. had stress think why CP better now Nonspecific chest pain (12 sources) Chest pain; Translations: [Chest pain] Resolved: 01-24-2010 03-08-2015 Episodic Other circulatory disease (20 sources) Elevated blood-pressure reading without diagnosis of hypertension; Translations: [Elevated blood-pressure reading without diagnosis of hypertension] 11-21-2018 Episodic Comment on above: stable Other connective tissue disease (20 sources) Olecranon bursitis; Translations: [Olecranon bursitis] 11-21-2018 Episodic Comment on above: treat grew staph aur eusx2 reoccurrence Other hematologic conditions (10 sources) Decreased lipoprotein; Translations: [Low serum low density lipoprotein (LDL)] 11-21-2018 Episodic Other injuries and conditions due to external causes (1 source) Systemic inflammatory response syndrome; Translations: [Systemic inflammatory response syndrome (SIRS) of non-infectious origin without acute organ dysfunction] Episodic Other injuries and conditions due to external causes (1 source) Systemic inflammatory response syndrome (SIRS) of non-infectious origin without acute organ dysfunction; Translations: [Systemic inflammatory response syndrome, unspecified] Episodic Other lower respiratory disease (6 sources) Dyspnea; Translations: [Dyspnea on exertion] Episodic Other non-traumatic joint disorders (10 sources) Arthralgia of the ankle and/or foot; Translations: [Pain in joint involving ankle and foot, unspecified laterality] Resolved: 01-24-2010 03-19-2015 Episodic Other non-traumatic joint disorders (5 sources) Pain in left knee; Translations: [Knee pain, left] 08-16-2019 Episodic Comment on above: oa flare? cartilage? home str exercises- inj and cont nsaid- watch bp -- ck x-brit Other nutritional; endocrine; and metabolic disorders (20 sources) Obesity; Translations: [Obesity] 11-21-2018 Chronic Comment on above: gain little back palomo g talk about diet and ways to get back to healthy eating. exercise back on shakes and veggies. talk about culture at home to change. 07-12-15 weight back up so need to add exercise. drinking alot water. need to add veggies back. talk about when add. goal 225 january. not want adipex because not like speed feeling. BP up too. contravehas finished the 21 day cleanse and feels good Other nutritional; endocrine; and metabolic disorders (10 sources) Body mass index 30+ - obesity; Translations: [BMI 39.0-39.9,adult] 11-21-2018 Chronic Other nutritional; endocrine; and metabolic disorders (5 sources) Body mass index 40+ - severely obese; Translations: [BMI 40.0-44.9, adult] 08-16-2019 Chronic Other nutritional; endocrine; and metabolic disorders (1 source) Morbid obesity; Translations: [Morbid (severe) obesity due to excess calories] Chronic Other screening for suspected conditions (not mental disorders or infectious disease) (8 sources) Blood chemistry abnormal; Translations: [Abnormal blood chemistry] Resolved: 04-03-2015 04-03-2015 Episodic Comment on above: low platelets Other skin disorders (10 sources) Eruption; Translations: [Rash] Resolved: 02-14-2016 02-14-2016 Episodic Other upper respiratory disease (18 sources) Allergic rhinitis; Translations: [Allergic rhinitis] 11-21-2018 Chronic Other upper respiratory infections (20 sources) Acute sinusitis; Translations: [Sore throat symptom] Resolved: 03-08-2015 03-18-2015 Episodic Comment on above: will treat as if str ep although rapid neg Residual codes; unclassified (8 sources) Disturbance in sleep behavior; Translations: [Sleep disturbance] 11-21-2018 Episodic Residual codes; unclassified (8 sources) Edema of extremity; Translations: [Edema extremities] 11-21-2018 Episodic Comment on above: left Residual codes; unclassified (15 sources) Current non-smoker ; Translations: [Current nonsmoker (Renamed from Current non-smoker)] 08-16-2019 Episodic Septicemia (except in labor) (2 sources) Infectious agent in bloodstream; Translations: [Sepsis, unspecified organism] Episodic Unclassified (20 sources) Unclassified (8 sources) Ankle/Foot Pain (719.47) Unclassified (8 sources) Low HDL (272.5) Urinary tract infections (2 sources) Urinary tract infectious disease; Translations: [Urinary tract infection, site not specified] Episodic Viral infection (14 sources) Viral infection, unspecified; Translations: [Viral disease] Resolved: 01-24-2010 03-18-2015 Episodic Past or Other Problems Problem Classification Problem Date Documented Da te Episodic/Chronic Other lower respiratory disease (6 sources) Dyspnea on exertion; Translations: [SOB (shortness of breath) on exertion] Resolved: 01-24-2010 03-15-2015 Episodic Residual codes; unclassified (3 sources) Needs influenza immunization; Translations: [Need for prophylactic vaccination and inoculation against influenza] Resolved: 03-08-2015 03-08-2015 Episodic Unclassified (4 sources) Edema extremities Unclassified (8 sources) BMI 39.0-39.9,adult Unclassified (20 sources) Current non-smoker ; Translations: [Current nonsmoker (Renamed from Current non-smoker)] 11-21-2018 Unclassified (20 sources) Unspecified Diagnosis Resolved: 03-08-2015 03-12-2009 Unclassified (4 sources) Well Male Exam (V70.0) Unclassified (3 sources) Patient encounter status; Translations: [Encounter for routine history and physical exam for male] Resolved: 03-08-2015 03-08-2015 Comment on above: testicular handout trang ansari. follow up prn. Unclassified (4 sources) GENERAL SYMPTOMS, UNSPECIFIED SLEEP DISTURBANCE (780.50) Unclassified (4 sources) Elevated Blood Pressure without diagnosis of Hypertension (796.2) Unclassified (4 sources) Abnormal blood chemistry (790.6) Unclassified (16 sources) CONTACT DERMATITIS D/T POISON RAFA, (692.6) Unclassified (4 sources) SINUSITIS, ACUTE NOS (461.9) Unclassified (8 sources) Rash Unclassified (1 source) Mouth sores Unclassified (1 source) BMI 40.0-44.9, adult Unclassified (1 source) Knee pain, left Results Test Name Value Interpretation Reference Range Facility Absolute lymphocyte counton 05-07-2022 Lymphocytes Auto (Unsp spec) [#/Vol] 0.83 10*3/uL 0.83-4.51 [facility] Work Phone: Basophil percentageon 2022 Lactate [Moles/Vol] 1.6 mmol/L 0.4-2.0 [facility] Work Phone: Basophil percentage 0-5 SEEN /hpf 0-5 [facility] Work Phone: Basophils/100 WBC (Bld) 0.3 % 0-1 [facility] Work Phone: Chloride [Moles/Vol] 103 mmol/L 98-107 [facility] Work Phone: Eosinophils/100 WBC (Bld) 0.1 % 0-5 [facility] Work Phone: Glucose [Mass/Vol] 136 mg/dL 74-106 [facility] Work Phone: Comment on above: Fasting Glucose resu lt greater than or equal to 126 mg/dL suggests DIABETES MELLITUS per A.D.A. criteria. Neutrophils (Bld) [#/Vol] 19.1 10*3/uL 2.0-7.7 [facility] Work Phone: Neutrophils/100 WBC (Bld) 90.9 % 47-70 [facility] Work Phone: Potassium [Moles/Vol] 4.5 mmol/L 3.5-5.1 [facility] Work Phone: Sodium [Moles/Vol] 136 mmol/L 136-145 [facility] Work Phone: WBC (Bld) [#/Vol] 20.9 10*3/uL 4.4-11.0 [facility] Work Phone: Bilirubin Test strip Ql (U)o n 05-07-2022 Bilirubin Ql (U) Negative Negative [facility] Work Phone: Blood erythrocytes count (nu mber/volume)on 05-07-2022 RBC (Bld) [#/Vol] 5.91 10*6/uL 4.6-6.2 [facility] Work Phone: Blood hemoglobin measurement (mass/volume)on 05-07-2022 Hemoglobin (Bld) [Mass/Vol] 16.1 g/dL 13.0-16.5 [facility] Work Phone: Blood lymphocytes/100 leukoc yteson 05-07-2022 Lymphocytes/100 WBC (Bld) 4.0 % 19-41 [facility] Work Phone: Blood manual differential co mment interpretation (narrative result)on 05-07-2022 Manual differential comment Zack (Bld) [Interp] SCANNED [facility] Work Phone: Blood monocytes/100 leukocyt eson 05-07-2022 Monocytes/100 WBC (Bld) 4.1 % 0-10 [facility] Work Phone: Blood platelet adequacy dete ction by light microscopyon 05-07-2022 Platelets LM Ql (Bld) MOD INC ADEQ [facility] Work Phone: Blood platelet mean volumeon 05-07-2022 Platelet mean volume (Bld) [Entitic vol] 12.5 fL 6.2-12.0 [facility] Work Phone: Blood platelet morphology de termination (nominal result)on 05-07-2022 Platelet morphology finding Nom (Bld) LARGE [facility] Work Phone: Determination of erythrocyte mean corpuscular volume (MCV)on 05-07-2022 MCV (RBC) [Entitic vol] 82.6 fL 80-94 [facility] Work Phone: Hematocrit Auto (Bld) [Volum e fraction]on 05-07-2022 Hematocrit (Bld) [Volume fraction] 48.8 % 40-54 [facility] Work Phone: Ketones Test strip Ql (U)on 05-07-2022 Ketones Ql (U) Negative Negative [facility] Work Phone: Laboratory - Chemistry and C hemistry - challengeon 05-07-2022 CO2 [Moles/Vol] 26.0 mmol/L 21.0-32.0 [facility] Work Phone: Magnesium [Mass/Vol] 2.0 mg/dL 1.6-2.6 [facility] Work Phone: Urea nitrogen/Creatinin e [Mass ratio] 15.2 mg/mg 10-20 [facility] Work Phone: Laboratory - Hematology and Cell countson 05-07-2022 Erythrocyte distribution width (RBC) [Entitic vol] 39.2 fL 35.1-43.9 [facility] Work Phone: Erythrocyte distribution width (RBC) [Ratio] 13.2 % 11.6-14.6 [facility] Work Phone: Immature granulocytes/100 WBC (Bld) 0.600 % 0.0-0.9 [facility] Work Phone: Comment on above: IG% - Immature Granu locytes (promyelocytes, myelocytes and metamyelocytes) > 1% indicates that a LEFT SHIFT is Present. MCH (RBC) [Entitic mass] 27.2 pg 27.0-32.0 [facility] Work Phone: Nucleated RBC/100 WBC (Bld) [Ratio] 0 % 0-5 [facility] Work Phone: MCHC Auto (RBC) [Mass/Vol]on 05-07-2022 MCHC (RBC) [Mass/Vol] 33.0 g/dL 32-36 [facility] Work Phone: Mucus LM Ql (Urine sed)on Mucus Ql (Urine sed) 0 SEEN /hpf [facility] Work Phone: Nitrite Test strip Ql (U)on 05-07-2022 Nitrite Ql (U) Positive Negative [facility] Work Phone: No Panel Informationon 05-07 Estimated Creatinine Clearance Calc 96.40 ml/min [facility] Work Phone: Estimated GFR (MDRD) Amer 90 mL/min >60 [facility] Work Phone: Comment on above: GFR Calc Estimated GFR (MDRD) Non-Af Amer 74 mL/min >60 [facility] Work Phone: Comment on above: Non- GFR Calc Platelets bldon 05-07-2022 Platelets (Bld) [#/Vol] 64 10*3/uL 150-450 [facility] Work Phone: Protein Test strip Ql (U)on 05-07-2022 Protein Ql (U) 30 mg/dl Negative [facility] Work Phone: Serum or plasma calcium reina urement (mass/volume)on 05-07-2022 Calcium [Mass/Vol] 9.4 mg/dL 8.5-10.1 [facility] Work Phone: Serum or plasma creatinine m easurement (mass/volume)on 05-07-2022 Creatinine [Mass/Vol] 1.12 mg/dL 0.70-1.30 [facility] Work Phone: Comment on above: The validity of the calculated GFR & GFRAA in patients over 70 years has not been determined. Clinical correlation is essential. Serum or plasma urea nitroge n measurement (mass/volume)on 05-07-2022 Urea nitrogen [Mass/Vol] 17 mg/dL 7-18 [facility] Work Phone: Squamous epithelial cells de tection in urine sediment by light microscopyon 05-07-2022 Epithelial cells.squamous LM Ql (Urine sed) 0-5 SEEN /hpf 0-5 [facility] Work Phone: Thin prep Papanicolaou smear with manual screeningon 05-07-2022 Thin prep Papanicolaou smear with manual screening 7 5-15 [facility] Work Phone: Urine blood detectionon RBC Ql (U) Negative Negative [facility] Work Phone: RBC Ql (U) 0 SEEN /hpf 0-5 [facility] Work Phone: Urine clarityon 05-07-2022 Clarity (U) Clear Clear [facility] Work Phone: Urine color determinationon 05-07-2022 Color (U) Yellow Yellow [facility] Work Phone: Urine glucose detectionon Glucose Ql (U) Normal mg/dl Normal [facility] Work Phone: Urine leukocyte esterase det ection by dipstickon 05-07-2022 Leukocyte esterase Test strip Ql (U) 500 /ul Negative [facility] Work Phone: Urine pHon 05-07-2022 pH (U) 7.0 [pH] 5.0 - 8.0 [facility] Work Phone: Urine sediment bacteria coun t by microscopy (number/high power field)on 05-07-2022 Bacteria LM.HPF (Urine sed) [#/Area] 1 /[HPF] None Seen [facility] Work Phone: Urine specific gravity measu rementon 05-07-2022 Specific gravity (U) [Rel density] 1.010 1.002-1.030 [facility] Work Phone: Urobilinogen Auto test strip Ql (U)on 05-07-2022 Urobilinogen Ql (U) Normal mg/dl Normal [facility] Work Phone: CNOVon 04-02-2018 CNOV Office Visit (UCWSTR) NOEL OSMAN ([id number]) 1975 MDate Time Provider [id number]/1/18 9:00 AM ANNA BRIDGES (ADALID) [facility] During your visit today, we recorded the following information about you: Temperature Pulse Respiration Blood pressure 97.8 degrees 94/minute 14/minute 138/82 Weight Height 159.8 kg 1.93 Sobia Bridges APRN.CNP 04/02/2018 10:29 AM SignedSubjectiveThe history is provided by the patient. No medical language specialist was used.HPI Noel Osman is a 42 year old male who presents today for CC of cough forone week. He is also having mild nasal congestion. He has tried mucinex, andcough drops without relief.Aggravating: Lying down.Risk factors: Co workers have been ill.BP 138/82 Pulse 94 Temp 36.6 ?C (97.8 ?F) (Tympanic) Resp 14 Ht 193cm (6' 4) Wt (!) 159.8 kg (352 lb 6.4 oz) SpO2 96% BMI 42.90 kg/m?No past medical history on file.I have confirmed and edited as necessary, the PMHReview of SystemsConstitutional: Negative for chills and fever.HENT: Positive for congestion. Negative for ear pain, sinus pain and sorethroat.Respiratory: Positive for cough.Musculoskeletal: Negative for myalgias.Neurological: Negative for headaches.ObjectivePhysica l ExamConstitutional: He is well-developed, well-nourished, and in no distress.HENT:Head: Normocephalic and atraumatic.Right Ear: Tympanic membrane, external ear and ear canal normal. Tympanicmembrane is not erythematous. No middle ear effusion.Left Ear: Tympanic membrane and ear canal normal. Tympanic membrane is noterythematous. No middle ear effusion.Nose: Nose normal. No mucosal edema or rhinorrhea. Right sinus exhibits nomaxillary sinus tenderness and no frontal sinus tenderness. Left sinus exhibitsno maxillary sinus tenderness and no frontal sinus tenderness.Mouth/Throat: Uvula is midline, oropharynx is clear and moist and mucousmembranes are normal.Pulmonary/Chest: Effort normal and breath sounds normal. He has no decreasedbreath sounds. He has no wheezes. He has no rhonchi. He has no rales.A dry tickling cough was noted during this encounter.Talking in full sentences.Handling secretions without drooling.Lips and nailbeds are pink without cyanosis.Albuterol nebulizer treatment done, improvement in breath sounds, and increasein PO2 - 98%Neurological: He is alert.Skin: Skin is warm and dry.Psychiatric: Affect normal.Nursing note and vitals reviewed. ASSESSMENT/PLAN:1. Cough - ICD9: 786.2, ICD10: R05 (primary diagnosis)Rest, oral fluids, tylenol or motrin as needed for pain or feverTessalon Perles as prescribed for coughing, do not combine this with othercough and cold medications- Discussed use of albuterol inhaler as needed for cough, wheeze, shortness ofbreath* Prednisone 40 mg (2 tablets) per day for 5 days, take in morning or early inday* Do not NSAIDs during this 5 day course (ibuprofen, naproxen, Motrin, Aleve,Advil) Tylenol only during prednisone use* Follow up with primary care provider if no improvement with treatmen* Seek medical care immediately, call 911, go to ER if you have chest pain,difficulty breathing, shortness of breath, inability to swallow.- ALBUTEROL SULFATE 2.5 MG/3 ML (0.083 %) SOLUTION FOR NEBULIZATION- XR CHEST 2V FRONTAL/LAT - interpreted by DEYSI WINSTON MDIMPRESSION:No acute/significant pathology detected.RESULT:No infiltrate or effusion is seen. ?Heart size and pulmonary vascularityare within normal limits.2. Wheezing - ICD9: 786.07, ICD10: R06.2- ALBUTEROL SULFATE 2.5 MG/3 ML (0.083 %) SOLUTION FOR NEBULIZATIONFollow up with PCP if any further changes.Diagnosis and treatment plan were discussed and questions were answered to thepatient's satisfaction. Pt acknowledged understanding of concepts and follow upplan.Specific signs and symptoms that would indicate the need for higher level ofcare were discussed in detail warranting prompt ER evaluation.Anna Bridges APRN.Neisha Bridges APRN.CNP 04/02/2018 10:14 AM SignedASSESSMENT/PLAN:1. Cough - ICD9: 786.2, ICD10: R05 (primary diagnosis)Rest, oral fluids, tylenol or motrin as needed for pain or feverTessalon Perles as prescribed for coughing, do not combine this with othercough and cold medications- Discussed use of albuterol inhaler as needed for cough, wheeze, shortness ofbreath* Prednisone 40 mg (2 tablets) per day for 5 days, take in morning or early inday* Do not NSAIDs during this 5 day course (ibuprofen, naproxen, Motrin, Aleve,Advil) Tylenol only during prednisone use* Follow up with primary care provider if no improvement with treatmen* Seek medical care immediately, call 911, go to ER if you have chest pain,difficulty breathing, shortness of breath, inability to swallow.- ALBUTEROL SULFATE 2.5 MG/3 ML (0.083 %) SOLUTION FOR NEBULIZATION- XR CHEST 2V FRONTAL/LAT2. Wheezing - ICD9: 786.07, ICD10: R06.2- ALBUTEROL SULFATE 2.5 MG/3 ML (0.083 %) SOLUTION FOR NEBULIZATIONFollow up with PCP if any further changes.Referring Provider: SELF [200]Allergies As of Date: 04/02/2018(No Known Allergies)Date Reviewed: 04/02/2018Reviewed by: Anna [facility]New [facility]) Cyrus - Fully AssessedReason for Visit: Cough [28]Primary Visit Diagnosis:Cough [R05] Other Visit Diagnosis:Wheezing [R06.2]Order(s):[] albuterol 2.5 mg /3 mL (0.083 %) 2.5 mg (PROVENTIL)Disp: Rfl: XR CHEST 2V FRONTAL/LAT [[id number]] Order #: [id number]. #:[id number] albuterol HFA (PROAIR HFA) 90 mcg/actuation inhalerInhale 2 Puffs as instructed every 4 hours as needed.Disp: 1 InhalerRfl: 0 Benzonatate 200 mg capsuleTake 1 capsule by mouth three times daily as needed.Disp: 30 capsuleRfl: 0Prescriptions as of 04/02/2018 Sig: ALBUTEROL SULFATE HFA 90 MCG/* Inhale 2 Puffs as instructed * BENZONATATE 200 MG CAPSULE Take 1 capsule by mouth three*Problem List As Of Date: 04/02/2018(None) Other instructions from your clinician: ASSESSMENT/PLAN: 1. Cough - ICD9: 786.2, ICD10: R05 (primary diagnosis) Rest, oral fluids, tylenol or motrin as needed for pain or fever Tessalon Perles as prescribed for coughing, do not combine this with other cough and cold medications - Discussed use of albuterol inhaler as needed for cough, wheeze, shortness of breath * Prednisone 40 mg (2 tablets) per day for 5 days, take in morning or early in day * Do not NSAIDs during this 5 day course (ibuprofen, naproxen, Motrin, Aleve, Advil) Tylenol only during prednisone use * Follow up with primary care provider if no improvement with treatmen * Seek medical care immediately, call 911, go to ER if you have chest pain, difficulty breathing, shortness of breath, inability to swallow. - ALBUTEROL SULFATE 2.5 MG/3 ML (0.083 %) SOLUTION FOR NEBULIZATION - XR CHEST 2V FRONTAL/LAT 2. Wheezing - ICD9: 786.07, ICD10: R06.2 - ALBUTEROL SULFATE 2.5 MG/3 ML (0.083 %) SOLUTION FOR NEBULIZATION Follow up with PCP if any further changes.Prescriptions ordered this encounter Disp Refills Start End ALBUTEROL SULFATE 2.5 MG/3 ML (0.083* 04/02/2018 04/02/2018 Route: INHALATION ALBUTEROL SULFATE HFA 90 MCG/ACTUATI* 1 In* 0 04/02/2018 Route: INHALATION Sig: Inhale 2 Puffs as instructed every 4 hours as needed. BENZONATATE 200 MG CAPSULE 30 c* 0 04/02/2018 Route: ORAL Sig: Take 1 capsule by mouth three times daily as needed. Status:Closed by ANNA BRIDGES CNP on 04/02/18 [facility] PROGRESSon 04-02-2018 Protein mass conc HNO ID: [id number] thor: Kenyon Frankel (Rt) Erica Grimaldo: (none)Author Type: TechnicianType: Progress NotesFiled: 04/02/2018 9:44 AMNote Text: Radiology Service Progress NotePATIENT NAME: Noel OsmanMRN: [id number] OF SERVICE: April 02, 2018TIME: 9:40 AMPATIENT IDENTITY VERIFICATION COMPLETED USING TWO (2) METHODS: Patientconfirmed name verbally and Date of .PATIENT GENDER DATA: MalePATIENT RELEVANT IMPLANT DATA REVIEWED: Not ApplicableRADIOLOGY DEPARTMENT: General X-ray: Exam(s) Completed: Chest X-RayPERIPHERAL IV DATA: Not applicableSIGNED BY: Coretta Burnette 2017 9:40 AM [facility] HNO ID: [id number] thor: Anna (Transit Man) FulkService: (none)Author Type: Nurse PractitionerType: Progress NotesFiled: 04/02/2018 10:29 AMNote Text:SubjectiveThe history is provided by the patient. No medical language specialist was used.HPI Noel Osman is a 42 year old male who presents today for CC ofcough for one week. He is also having mild nasal congestion. He hastried mucinex, and cough drops without relief.Aggravating: Lying down.Risk factors: Co workers have been ill.BP 138/82 Pulse 94 Temp 36.6 ?C (97.8 ?F) (Tympanic) Resp 14 Ht 193 cm (6' 4) Wt (!) 159.8 kg (352 lb 6.4 oz) SpO2 96% BMI42.90 kg/m?No past medical history on file.I have confirmed and edited as necessary, the PMHReview of SystemsConstitutional: Negative for chills and fever.HENT: Positive for congestion. Negative for ear pain, sinus pain and sorethroat.Respiratory: Positive for cough.Musculoskeletal: Negative for myalgias.Neurological: Negative for headaches.ObjectivePhysica l ExamConstitutional: He is well-developed, well-nourished, and in no distress.HENT:Head: Normocephalic and atraumatic.Right Ear: Tympanic membrane, external ear and ear canal normal. Tympanicmembrane is not erythematous. No middle ear effusion.Left Ear: Tympanic membrane and ear canal normal. Tympanic membrane is noterythematous. No middle ear effusion.Nose: Nose normal. No mucosal edema or rhinorrhea. Right sinus exhibits nomaxillary sinus tenderness and no frontal sinus tenderness. Left sinusexhibits no maxillary sinus tenderness and no frontal sinus tenderness.Mouth/Throat: Uvula is midline, oropharynx is clear and moist and mucousmembranes are normal.Pulmonary/Chest: Effort normal and breath sounds normal. He has nodecreased breath sounds. He has no wheezes. He has no rhonchi. He has orlin.A dry tickling cough was noted during this encounter.Talking in full sentences.Handling secretions without drooling.Lips and nailbeds are pink without cyanosis.Albuterol nebulizer treatment done, improvement in breath sounds, andincrease in PO2 - 98%Neurological: He is alert.Skin: Skin is warm and dry.Psychiatric: Affect normal.Nursing note and vitals reviewed. ASSESSMENT/PLAN:1. Cough - ICD9: 786.2, ICD10: R05 (primary diagnosis)Rest, oral fluids, tylenol or motrin as needed for pain or feverTessalon Perles as prescribed for coughing, do not combine this with othercough and cold medications- Discussed use of albuterol inhaler as needed for cough, wheeze,shortness of breath* Prednisone 40 mg (2 tablets) per day for 5 days, take in morning orearly in day* Do not NSAIDs during this 5 day course (ibuprofen, naproxen, Motrin,Aleve, Advil) Tylenol only during prednisone use* Follow up with primary care provider if no improvement with treatmen* Seek medical care immediately, call 911, go to ER if you have chestpain, difficulty breathing, shortness of breath, inability to swallow.- ALBUTEROL SULFATE 2.5 MG/3 ML (0.083 %) SOLUTION FOR NEBULIZATION- XR CHEST 2V FRONTAL/LAT - interpreted by DEYSI WINSTON MDIMPRESSION:No acute/significant pathology detected.RESULT:No infiltrate or effusion is seen. ?Heart size and pulmonary vascularityare within normal limits.2. Wheezing - ICD9: 786.07, ICD10: R06.2- ALBUTEROL SULFATE 2.5 MG/3 ML (0.083 %) SOLUTION FOR NEBULIZATIONFollow up with PCP if any further changes.Diagnosis and treatment plan were discussed and questions were answered tothe patient's satisfaction. Pt acknowledged understanding of concepts andfollow up plan.Specific signs and symptoms that would indicate the need for higher levelof care were discussed in detail warranting prompt ER evaluation.Anna Bridges APRN.DATA MANAGEMENT ANALYST Normal [facility] XR CHEST 2V FRONTAL/LATon Protein mass conc * * *Final Report* * *DATE OF EXAM: Apr 02 2018 9:44AM WOX [id number] - XR CHEST 2V FRONTAL/LAT / REASON: Cough * * * * Physician Interpretation * * * * CHEST RADIOGRAPH - 04/02/2018 9:44 AMTECHNIQUE: 2 views (PA/AP; LAT)HISTORY / INDICATION: Cough and congestion x1 weekCOMPARED WITH: N/ARESULT:No infiltrate or effusion is seen. Heart size and pulmonary vascularity are within normal limits.IMPRESSION:No acute/significant pathology detected.Inventory Clerk: SHAWNEE Transcribe Date/Time: Apr 02 2018 10:09ADictated by : DEYSI WINSTON MDThis examination was interpreted and the report reviewed and electronically signed by: DEYSI WINSTON MD on Apr 02 2018 10:09AM [id number] Normal [facility] CNNURSEon 02-12-2018 CNNURSE Nurse Visit (CORW[facility]) NOEL OSMAN ([id number]) 1975 MDate Time Provider Cwqwtgxjnp55/13/18 8:30 AM NURSE [facility] During your visit today, we recorded the following information about you:Duane Tr GARVIN 02/12/2018 8:29 AM Qqiobx6 year old male here for INACTIVATED INFLUENZA VACCINE.2389-6274 SeasonPatient is identified by name and date of : Yes [] CONTRAINDICATIONS color enhancedsectionAge less than 6 months? NoAllergy to eggs, chicken, chicken feathers, or chicken dander? NoAllergy to thimerosal (a preservative) or formaldehyde, gelatin? NoHistory of severe reaction to any vaccine component or a previous dose ofinfluenza vaccination? NoHistory of Guillain-Merrill Syndrome within 6 weeks after a previous influenzavaccine? NoPatient is not moderately or severely ill? NoCurrent temperature greater or equal to 100.4F? NoHistory of Bone Marrow Transplant prior 6 months or solid organ transplant inthe past 3 months ? NoHistory of fainting after a prior injection or medical procedure? No-? If patient has fainted in the past, the CDC recommends sitting or lying downfor 15 minutes after the vaccination. [] VERIFICATION colorenhanced sectionWas the answer Yes for any of the above contraindications? Nocontraindications present. Acceptable to proceed with vaccine.Patient/guardian agrees the above answers are true to the best of theirknowledge? YesFlu vaccine information sheet given? YesSee immunization activity in [facility] for details of immunizations adminsteredtoday.Patient age: [age] year old For The 8814-3757 Flu Season6-35 months old: Fluzone 0.25 ml - IM (Preservative Free)3 years of age: Fluzone 0.5 ml - IM (Preservative Free)3 years and older: Fluzone 0.5 ml- IM-(with Preservatives)65+ years old:2-49 years old Fluzone High-Dose 0.5 ml - IM (Preservative Free)FLUMIST- intranasalREMEMBER: If patient is less than 9 years of age and this is the first vaccineof Influenza to be received in any flu season, they should receive a seconddose in one months time.Referring Provider: SELF [200]Allergies As of Date: 02/12/2018(Not on File)Date Reviewed: Never ReviewedReason for Visit: Imm/Inj [58] Cmt: Flu VaccinePrimary Visit Diagnosis:Need for vaccination [Z23]Order(s):INFLUENZA VACCINE QUADRIVALENT AGE 3 YRS PLUS + IM [[id number]] Order #: [id number] List As Of Date: 02/12/2018(None) Status:Closed by DUANE BATISTA LPN on 02/12/18 Normal [facility] PROGRESSon 02-08-2018 Protein mass conc HNO ID: [id number] thor: Duane Lacko LPNService: (none)Author Type: (none)Type: Progress NotesFiled: 02/12/2018 8:29 AMNote Text:42 year old male here for INACTIVATED INFLUENZA VACCINE.1233-9644 SeasonPatient is identified by name and date of : Yes [] CONTRAINDICATIONS colorenhanced sectionAge less than 6 months? NoAllergy to eggs, chicken, chicken feathers, or chicken dander? NoAllergy to thimerosal (a preservative) or formaldehyde, gelatin? NoHistory of severe reaction to any vaccine component or a previous dose ofinfluenza vaccination? NoHistory of Guillain-Merrill Syndrome within 6 weeks after a previousinfluenza vaccine? NoPatient is not moderately or severely ill? NoCurrent temperature greater or equal to 100.4F? NoHistory of Bone Marrow Transplant prior 6 months or solid organ transplantin the past 3 months ? NoHistory of fainting after a prior injection or medical procedure? No-? If patient has fainted in the past, the CDC recommends sitting or lyingdown for 15 minutes after the vaccination. [] VERIFICATIONcolor enhanced sectionWas the answer Yes for any of the above contraindications? Nocontraindications present. Acceptable to proceed with vaccine.Patient/guardian agrees the above answers are true to the best of theirknowledge? YesFlu vaccine information sheet given? YesSee immunization activity in [facility] for details of immunizationsadminstered today.Patient age: [age] year old For The Flu Season6-35 months old: Fluzone 0.25 ml - IM (Preservative Free)3 years of age: Fluzone 0.5 ml - IM (Preservative Free)3 years and older: Fluzone 0.5 ml- IM-(with Preservatives)65+ years old:2-49 years old Fluzone High-Dose 0.5 ml - IM (Preservative Free)FLUMIST- intranasalREMEMBER: If patient is less than 9 years of age and this is the firstvaccine of Influenza to be received in any flu season, they should receivea second dose in one months time. Normal [facility] Rapid Strep Test, Office ([phone])Ordered By: Duane Mitchell on 02-14-2016 S. pyogenes Ag EIA Ql (Throat) Positive [facility]; [facility] Work Phone: S. pyogenes Ag IA Ql (Unsp spec) Positive [facility] Work Phone: Throat Culture ([phone])Ordere d By: Manager Regional Sales on 02-14-2016 Bacteria identified Respiratory culture Nom (Unsp spec) BETAGA Abnormal [facility] Work Phone: Comment on above: Beta hemolytic Strep tococcus, group AModerate growthPenicillin and ampicillin are drugs of choice for treatment ofbeta-hemolytic streptococcal infections. Susceptibility testing ofpenicillins and other beta-lactam agents approved by the FDA fortreatment of beta-hemolytic streptococcal infections need not beperformed routinely because nonsusceptible isolates are extremelyrare in any beta-hemolytic streptococcus and have not been reportedfor Streptococcus pyogenes (group A). (CLSI 2010) PATIENT NOT FASTINGP ERFORMED BY: LAURY [facility] Lfbqws7409 [facility] JungleAtrium Health [id number] Information: SRC:TH Bacteria identified Respiratory culture Nom (Unsp spec) Final report Abnormal [facility] Work Phone: Comment on above: PATIENT NOT FASTINGP ERFORMED BY: LAURY [facility] Mdiuli2956 [employer] Spl[employer] TechnologyAtrium Health [id number] Information: SRC:TH THALIA CULTURE-OTHER ([id number])Ord ered By: Manager Regional Sales on 06-13-2014 Bacteria identified Respiratory culture Nom (Unsp spec) Final report Abnormal [facility] Work Phone: Comment on above: PATIENT NOT FASTINGP ERFORMED BY: LAURY [facility] Jcuwnt5911 [employer] [id number] Information: SRC: THROAT Bacteria identified Respiratory culture Nom (Unsp spec) BETAGB Abnormal [facility] Work Phone: Comment on above: Beta hemolytic Strep tococcus, group BLight growthPenicillin and ampicillin are drugs of choice for treatment ofbeta-hemolytic streptococcal infections. Susceptibility testing ofpenicillins and other beta-lactam agents approved by the FDA fortreatment of beta-hemolytic streptococcal infections need not beperformed routinely because nonsusceptible isolates are extremelyrare in any beta-hemolytic streptococcus and have not been reportedfor Streptococcus pyogenes (group A). (CLSI 2010) PATIENT NOT FASTINGP ERFORMED BY: [employer] Setsqp9847 CapsearchPaints[facility] [id number] Information: SRC: THROAT Rapid Flu (03495 x 2)Ordered By: Dorita Lam on 06-13-2014 FLUAV Ag IA Ql (Throat) Negative [facility] Work Phone: FLUAV Ag IA Ql (Throat) Negative [facility]; [facility] Work Phone: Rapid Strep Test, Office ([phone])Ordered By: Dorita Lam on 06-13-2014 S. pyogenes Ag EIA Ql (Throat) Negative [facility]; [facility] Work Phone: S. pyogenes Ag IA Ql (Unsp spec) Negative [facility] Work Phone: Rapid Strep Test, Office ([phone])Ordered By: Duane Mitchell on 05-22-2011 S. pyogenes Ag EIA Ql (Throat) Negative [facility]; [facility] Work Phone: S. pyogenes Ag IA Ql (Unsp spec) Negative Normal [facility] Work Phone: Throat Culture ([phone])Ordere d By: Manager Regional Sales on 05-22-2011 Bacteria identified Respiratory culture Nom (Unsp spec) RRF Normal [facility] Work Phone: Comment on above: Routine respiratory thanh PATIENT NOT FASTINGP ERFORMED BY: [employer] Afsvyt3485 [employer] [id number] Information: SRC:THRT [id number] Bacteria identified Respiratory culture Nom (Unsp spec) Final report Normal [facility] Work Phone: Comment on above: PATIENT NOT FASTINGP ERFORMED BY: LAURY [facility] Cegiwa4287 [facility] [id number] Information: SRC:JOLANTA [id number] Aerobic Bacterial Culture (1 7202)Ordered By: Manager Regional Sales on 12-18-2010 Bacteria identified Aer cx Nom (Unsp spec) Final report Normal [facility] Work Phone: Comment on above: PATIENT NOT FASTINGP ERFORMED BY: LAURY [facility] Gtunvg3951 [facility] [id number] Information: [id number] SITE- RIGHT ELBOW Bacteria identified Cx Nom (Unsp spec) Staphylococcus aureus [facility] Work Phone: Comment on above: Scant growthSuscepti bility or resistance of staphylococci to oxacillin predictssusceptibility or resistance to (a) other tuuq-ptkbshvmt-tbkkqfyliqgnzekha such as cloxacillin and dicloxacillin, (b) combinationsof a penicillin and a beta-lactamase inhibitor, and(c) anti-staphylococcal cephalosporins. Routine testing of otherpenicillins, beta-lactam/beta-lactamase inhibitor combinations,cephems, and carbapenems is not advised by the CLSI Standards(T388-Y93, 2005). PATIENT NOT FASTINGP ERFORMED BY: [facility] Vskjqt4720 [facility] [id number] Information: [id number] SITE- RIGHT ELBOW Other Antibiotic [Susc] MIHEAD Normal [facility] Work Phone: Comment on above: S = Susceptibl e; I = Intermediate; R = Resistant P = Positive; N = Negative MICS are expressed in micrograms per mL Antibiotic RSLT#1 RSLT#2 RSLT#3 RSLT#4Ciprofloxacin SClindamycin SErythromycin SGentamicin SLevofloxacin SLinezolid SMoxifloxacin SOxacillin SPenicillin RQuinupristin/Dalfopristin SRifampin STetracycline STrimethoprim/Sulfa SVancomycin S PATIENT NOT FASTINGP ERFORMED BY: [facility] Wqgffj7927 [facility] [id number] Information: [id number] SITE- RIGHT ELBOW THALIA CULTURE-OTHER (39066)Ord ered By: Manager Regional Sales on 08-06-2009 Bacteria identified Respiratory culture Nom (Unsp spec) Final report [facility] Work Phone: Comment on above: PATIENT NOT FASTINGP ERFORMED BY: [facility] Sbrglb6233 [facility] [id number] Information: SRC:THRT [id number] Bacteria identified Respiratory culture Nom (Unsp spec) BETAGA Normal [facility] Work Phone: Comment on above: Beta hemolytic Strep tococcus, group AHeavy growthPenicillin continues to be the drug of choice for infectionscaused by beta hemolytic streptococci in groups A,B,C and G.No penicillin resistance has been described among theseorganisms and surveillance for emerging resistance is notrecommended. (CHANTEL Cruz. Clinical Microbiology Newsletter,1993; DANIEL Chaidez et al. Diagnostic Microbiology andInfectious Disease, October,.) PATIENT NOT FASTINGP ERFORMED BY: [facility]6370 [facility] [id number] Information: SRC:THRT R14338 Rapid Strep Test, Office ([phone])on 08-06-2009 S. pyogenes Ag EIA Ql (Throat) Negative [facility]; [facility] Work Phone: S. pyogenes Ag IA Ql (Unsp spec) Negative Normal [facility] Work Phone: CBC with manual diff ([id number]) Ordered By: Manager Regional Sales on 07-23-2009 Basophils (Bld) [#/Vol] 0.1 {x10E3/uL} Normal 0.0-0.2 [facility] Work Phone: Comment on above: PATIENT NOT FASTINGP ERFORMED BY: [facility]6370 [facility] [id number] Information: [id number] Basophils (Bld) [#/Vol] 0.1 10*3/uL Normal 0.0-0.2 [facility]; [facility] Work Phone: Comment on above: PATIENT NOT FASTINGP ERFORMED BY: LAURY Saleh6370 [facility] [id number] Information: [id number] Basophils/100 WBC (Bld) 1 % Normal 0-3 [facility] Work Phone: Comment on above: PATIENT NOT FASTINGP ERFORMED BY: LAURY LabCoLisa Ville [id number] [facility] [id number] Information: 919691,[id number] Eosinophils (Bld) [#/Vol] 0.4 {x10E3/uL} Normal 0.0-0.4 [facility] Work Phone: Comment on above: PATIENT NOT FASTINGP ERFORMED BY: [place] 1149270 [facility] [id number] Information: [id number],[id number] Eosinophils (Bld) [#/Vol] 0.4 10*3/uL Normal 0.0-0.4 [facility]; [facility] Work Phone: Comment on above: PATIENT NOT FASTINGP ERFORMED BY: LAURY StoneLisa Ville [id number] [facility] [id number] Information: [id number] Eosinophils/100 WBC (Bld) 6 % Normal 0-7 [facility] Work Phone: Comment on above: PATIENT NOT FASTINGP ERFORMED BY: [facility]CoOverlook [facility] CenterJcuxtr1710 [facility] [id number] Information: 122623,S34222 Erythrocyte distribution width (RBC) [Ratio] 13.7 % Normal 11.7-15.0 [facility] Work Phone: Comment on above: PATIENT NOT FASTINGP ERFORMED BY: LabAlexandra Ville 0643370 [facility] [id number] Information: [id number],X42621 Hematocrit (Bld) [Volume fraction] 45.6 % Normal 36.0-50.0 [facility] Work Phone: Comment on above: PATIENT NOT FASTINGP ERFORMED BY: LAURY Saleh6370 [facility] [id number] Information: [id number],[id number] Hemoglobin (Bld) [Mass/Vol] 15.5 g/dL Normal 12.5-17.0 [facility] Work Phone: Comment on above: PATIENT NOT FASTINGP ERFORMED BY: LabCo[address] [id number] Information: [id number] Lymphocytes (Bld) [#/Vol] 1.9 {x10E3/uL} Normal 0.7-4.5 [facility] Work Phone: Comment on above: PATIENT NOT FASTINGP ERFORMED BY: JfAlexandra Ville 0643370 [facility] [id number] Information: 510421,[id number] Lymphocytes (Bld) [#/Vol] 1.9 10*3/uL Normal 0.7-4.5 [facility]; [facility] Work Phone: Comment on above: PATIENT NOT FASTINGP ERFORMED BY: LAURY RhoadesAlexandra Ville 0643370 [facility] [id number] Information: 833145,[id number] Lymphocytes/100 WBC (Bld) 28 % Normal 14-46 [facility] Work Phone: Comment on above: PATIENT NOT FASTINGP ERFORMED BY: [facility]Asp[facility]6370 [facility] [id number] Information: 849768,[id number] MCH (RBC) [Entitic mass] 28.9 pg Normal 27.0-34.0 [facility] Work Phone: Comment on above: PATIENT NOT FASTINGP ERFORMED BY: LabAlexandra [place]ille 0643370 [facility] [id number] Information: 404574,[id number] MCHC (RBC) [Mass/Vol] 33.9 g/dL Normal 32.0-36.0 [facility] Work Phone: Comment on above: PATIENT NOT FASTINGP ERFORMED BY: LAURY Saleh6370 [facility] [id number] Information: 043705,[id number] MCV (RBC) [Entitic vol] 85 fL Normal 80-98 [facility] Work Phone: Comment on above: PATIENT NOT FASTINGP ERFORMED BY: Lab[address] [id number] Information: 335308,[id number] Monocytes (Bld) [#/Vol] 0.5 {x10E3/uL} Normal 0.1-1.0 [facility] Work Phone: Comment on above: PATIENT NOT FASTINGP ERFORMED BY: [place] 1149270 [facility] [id number] Information: [id number] Monocytes (Bld) [#/Vol] 0.5 10*3/uL Normal 0.1-1.0 [facility]; [facility] Work Phone: Comment on above: PATIENT NOT FASTINGP ERFORMED BY: LAURY hRoades[facility] Ggrocy1520 [facility] [id number] Information: [id number],[id number] Monocytes/100 WBC (Bld) 7 % Normal 4-13 [facility] Work Phone: Comment on above: PATIENT NOT FASTINGP ERFORMED BY: LabAsp[facility] Hospital6370 [facility] [id number] Information: 393480,[id number] Neutrophils (Bld) [#/Vol] 3.9 {x10E3/uL} Normal 1.8-7.8 [facility] Work Phone: Comment on above: PATIENT NOT FASTINGP ERFORMED BY: LabAlexandra [place] 0643370 [facility] [id number] Information: 774237,[id number] Neutrophils (Bld) [#/Vol] 3.9 10*3/uL Normal 1.8-7.8 [facility]; [facility] Work Phone: Comment on above: PATIENT NOT FASTINGP ERFORMED BY: LAURY Saleh63Gildardo Leungox Michaelain [place] [id number] Information: 130666,Q43599 Neutrophils/100 WBC (Bld) 58 % Normal 40-74 [facility] Work Phone: Comment on above: PATIENT NOT FASTINGP ERFORMED BY: LAURY [facility] Eqjhnw2648 [facility] [id number] Information: 801868,[id number] Platelets (Bld) [#/Vol] 191 {x10E3/uL} Normal 140-415 [facility] Work Phone: Comment on above: PATIENT NOT FASTINGP ERFORMED BY: LAURY Saleh6370 [facility] [id number] Information: 009040,[id number] Platelets (Bld) [#/Vol] 191 10*3/uL Normal 140-415 [facility]; [facility] Work Phone: Comment on above: PATIENT NOT FASTINGP ERFORMED BY: LAURY Saleh6370 [facility] [id number] Information: 572304,[id number] RBC (Bld) [#/Vol] 5.36 {x10E6/uL} Normal 4.10-5.60 [facility] Internal Medicine Work Phone: Comment on above: PATIENT NOT FASTINGP ERFORMED BY: LAURY [facility] Trungo9992 [address] [facility] [place] [id number] Information: 707353,[id number] RBC (Bld) [#/Vol] 5.36 10*6/uL Normal 4.10-5.60 [facility] Internal Medicine; [facility] Work Phone: Comment on above: PATIENT NOT FASTINGP ERFORMED BY: LAURY [facility] Pvmsdo3443 [address] RoadFormerly [facility] Hospitalin [place] [id number] Information: 025752,[id number] WBC (Bld) [#/Vol] 6.8 {x10E3/uL} Normal 4.0-10.[address] [facility] Internal Medicine Work Phone: Comment on above: PATIENT NOT FASTINGP ERFORMED BY: LabAsp[facility] Hospital6370 [facility] [id number] Information: 216874,P29941 WBC (Bld) [#/Vol] 6.8 10*3/uL Normal 4.0-10.[address] [facility] Internal Medicine; [facility] Work Phone: Comment on above: PATIENT NOT FASTINGP ERFORMED BY: [facility]6370 [facility] [id number] Information: 330445,P03937 C-Reactive Protein (61021)Or dered By: Manager Regional Sales on 07-10-2009 CRP [Mass/Vol] 4.6 mg/L Normal 0.0-4.9 [facility] Internal Medicine Work Phone: Comment on above: PATIENT WAS FASTINGP ERFORMED BY: [facility]Asp[facility]6370 [facility] [id number] CBC with manual diff (52088) Ordered By: Manager Regional Sales on 07-10-2009 Basophils (Bld) [#/Vol] 0.1 {x10E3/uL} Normal 0.0-0.2 [facility] Internal Medicine Work Phone: Comment on above: PATIENT WAS FASTINGP ERFORMED BY: Lab[facility]6370 [facility] [id number] Information: 085602,[id number] Basophils (Bld) [#/Vol] 0.1 10*3/uL Normal 0.0-0.2 [facility] Internal Medicine; [facility] Work Phone: Comment on above: PATIENT WAS FASTINGP ERFORMED BY: [facility]6370 [facility] [id number] Information: [id number],[id number] Basophils/100 WBC (Bld) 1 % Normal 0-3 [facility] Work Phone: Comment on above: PATIENT WAS FASTINGP ERFORMED BY: [place] 1149270 [facility] [id number] Information: 590960,[id number] Eosinophils (Bld) [#/Vol] 0.6 {x10E3/uL} Abnormal 0.0-0.4 [facility] Work Phone: Comment on above: PATIENT WAS FASTINGP ERFORMED BY: [address] [id number] Information: 069220,[id number] Eosinophils (Bld) [#/Vol] 0.6 10*3/uL Abnormal 0.0-0.4 [facility]; [facility] Work Phone: Comment on above: PATIENT WAS FASTINGP ERFORMED BY: [address] [id number] Information: 662030,[id number] Eosinophils/100 WBC (Bld) 8 % Abnormal 0-7 [facility] Work Phone: Comment on above: PATIENT WAS FASTINGP ERFORMED BY: [address] [id number] Information: 475602,K34920 Erythrocyte distribution width (RBC) [Ratio] 13.8 % Normal 11.7-15.0 [facility] Work Phone: Comment on above: PATIENT WAS FASTINGP ERFORMED BY: [address] [id number] Information: 833982,Z87390 Hematocrit (Bld) [Volume fraction] 46.5 % Normal 36.0-50.0 [facility] Work Phone: Comment on above: PATIENT WAS FASTINGP ERFORMED BY: [address] [id number] Information: 598274,S33872 Hemoglobin (Bld) [Mass/Vol] 15.8 g/dL Normal 12.5-17.0 [facility] Work Phone: Comment on above: PATIENT WAS FASTINGP ERFORMED BY: [facility]6370 [facility] [id number] Information: 808307,[id number] Lymphocytes (Bld) [#/Vol] 2.5 {x10E3/uL} Normal 0.7-4.5 [facility] Work Phone: Comment on above: PATIENT WAS FASTINGP ERFORMED BY: [address] [id number] Information: 309223,[id number] Lymphocytes (Bld) [#/Vol] 2.5 10*3/uL Normal 0.7-4.5 [facility]; [facility] Work Phone: Comment on above: PATIENT WAS FASTINGP ERFORMED BY: [address] [id number] Information: 020221,[id number] Lymphocytes/100 WBC (Bld) 31 % Normal 14-46 [facility] Work Phone: Comment on above: PATIENT WAS FASTINGP ERFORMED BY: [facility]6370 [facility] [id number] Information: [id number] MCH (RBC) [Entitic mass] 28.8 pg Normal 27.0-34.0 [facility] Work Phone: Comment on above: PATIENT WAS FASTINGP ERFORMED BY: [facility]6370 [facility] [id number] Information: 664867,[id number] MCHC (RBC) [Mass/Vol] 34.0 g/dL Normal 32.0-36.0 [facility] Work Phone: Comment on above: PATIENT WAS FASTINGP ERFORMED BY: [place] 1149270 [facility] [id number] Information: 364557,[id number] MCV (RBC) [Entitic vol] 85 fL Normal 80-98 [facility] Work Phone: Comment on above: PATIENT WAS FASTINGP ERFORMED BY: LAURY Saleh6370 [facility] [id number] Information: 513073,[id number] Monocytes (Bld) [#/Vol] 0.5 {x10E3/uL} Normal 0.1-1.0 [facility] Work Phone: Comment on above: PATIENT WAS FASTINGP ERFORMED BY: LAURY [address] [id number] Information: 649691,[id number] Monocytes (Bld) [#/Vol] 0.5 10*3/uL Normal 0.1-1.0 [facility]; [facility] Work Phone: Comment on above: PATIENT WAS FASTINGP ERFORMED BY: LAURY Jf[address] [id number] Information: 234555,[id number] Monocytes/100 WBC (Bld) 6 % Normal 4-13 [facility] Work Phone: Comment on above: PATIENT WAS FASTINGP ERFORMED BY: LAURY Chase Fajbqg8849 [facility] [id number] Information: 187049,S78130 Neutrophils (Bld) [#/Vol] 4.4 {x10E3/uL} Normal 1.8-7.8 [facility] Work Phone: Comment on above: PATIENT WAS FASTINGP ERFORMED BY: [facility]6370 [facility] [id number] Information: 973076,L75138 Neutrophils (Bld) [#/Vol] 4.4 10*3/uL Normal 1.8-7.8 [facility]; [facility] Work Phone: Comment on above: PATIENT WAS FASTINGP ERFORMED BY: [place] 1149270 [facility] [id number] Information: 937754,P66512 Neutrophils/100 WBC (Bld) 54 % Normal 40-74 [facility] Work Phone: Comment on above: PATIENT WAS FASTINGP ERFORMED BY: LAURY Hutchinsonlin6370 [facility] [id number] Information: 877126,[id number] Platelets (Bld) [#/Vol] 137 {x10E3/uL} Abnormal 140-415 [facility] Work Phone: Comment on above: PATIENT WAS FASTINGP ERFORMED BY: LAURY [address] [id number] Information: [id number],[id number] Platelets (Bld) [#/Vol] 137 10*3/uL Abnormal 140-415 [facility] Internal Medicine; [facility] Work Phone: Comment on above: PATIENT WAS FASTINGP ERFORMED BY: LAURY Hutchinsonlin6370 [facility] [id number] Information: 366673,[id number] RBC (Bld) [#/Vol] 5.48 {x10E6/uL} Normal 4.10-5.60 [facility] Internal Medicine Work Phone: Comment on above: PATIENT WAS FASTINGP ERFORMED BY: LAURY Hutchinsonlin6370 [facility] [id number] Information: 091751,[id number] RBC (Bld) [#/Vol] 5.48 10*6/uL Normal 4.10-5.60 [facility] Internal Medicine; [facility] Work Phone: Comment on above: PATIENT WAS FASTINGP ERFORMED BY: LAURY Hutchinsonlin6370 [facility] [id number] Information: 789209,R03110 WBC (Bld) [#/Vol] 8.1 {x10E3/uL} Normal 4.0-10.[address] [facility] Internal Medicine Work Phone: Comment on above: PATIENT WAS FASTINGP ERFORMED BY: LAURY Hutchinsonlin6370 [facility] [place] [id number] Information: 925525,[id number] WBC (Bld) [#/Vol] 8.1 10*3/uL Normal 4.0-10.[address] [facility] Internal Medicine; [facility] Work Phone: Comment on above: PATIENT WAS FASTINGP ERFORMED BY: LAURY Briana Hutchinsonlin6370 [facility] [id number] Information: 843458,[id number] LIPID PANEL ([id number])Ordered B y: Manager [employer] on 07-10-2009 Cholesterol [Mass/Vol] 144 mg/dL Normal 100-199 [facility] Work Phone: Comment on above: PATIENT WAS FASTINGP ERFORMED BY: LAURY Chasejulia Yagspb1186 [facility] [id number] Cholesterol in HDL [Mass/Vol] 29 mg/dL Abnormal [facility] Work Phone: Comment on above: According to ATP-III Guidelines, HDL-C >59 mg/dL is considered anegative risk factor for CHD. PATIENT WAS FASTINGP ERFORMED BY: LAURY JfBrandon Tntdlb3799 [facility]in [place] [id number] Cholesterol in LDL [Mass/Vol] 87 mg/dL Normal 0-99 [facility] Work Phone: Comment on above: PATIENT WAS FASTINGP ERFORMED BY: LAURY LabDavid Xidocp5383 [facility] [id number] Cholesterol in LDL/Cholesterol in HDL [Mass ratio] 3.0 {ratio_units} Normal 0.0-3.6 [facility] Work Phone: Comment on above: PATIENT WAS FASTINGP ERFORMED BY: LAURY [facility] Edciol5351 [facility] [id number] Cholesterol in VLDL [Mass/Vol] 28 mg/dL Normal 5-40 [facility] Work Phone: Comment on above: PATIENT WAS FASTINGP ERFORMED BY: LAURY [facility] Gqnyyn1629 [facility] [id number] Triglyceride [Mass/Vol] 140 mg/dL Normal 0-149 [facility] Work Phone: Comment on above: PATIENT WAS FASTINGP ERFORMED BY: LAURY LabCojulia Cpqvrl6483 [facility] Hospitalblin [place] [id number] MICROALBUMIN URINE QUANT (82 043)Ordered By: Manager Regional Sales on 07-10-2009 Albumin DL <= 20 mg/L (U) [Mass/Vol] 4.4 ug/mL Normal 0.0-17.0 [facility] Work Phone: Comment on above: PATIENT WAS FASTINGP ERFORMED BY: LAURY [facility] Sqiscn2422 Stewart Roadblin [place] [id number] Albumin/Creatinine (U) [Mass ratio] 2.6 {mg/g_creat} Normal 0.0-30.0 [facility] Work Phone: Comment on above: PATIENT WAS FASTINGP ERFORMED BY: LAURY [facility] Ksixba0984 [address] RoadFormerly [facility]in [place] [id number] Creatinine (U) [Mass/Vol] 169.7 mg/dL Normal 24.0-392.0 [facility] Work Phone: Comment on above: PATIENT WAS FASTINGP ERFORMED BY: LAURY [facility] Jvxeqo2090 [facility] [place] [id number] Metabolic Panel, Comprehensi ve (27021)Ordered By: Manager Regional Sales on 07-10-2009 Albumin [Mass/Vol] 4.2 g/dL Normal 3.5-5.[address] [facility] Internal Medicine Work Phone: Comment on above: PATIENT WAS FASTINGP ERFORMED BY: LAURY [facility] Ouswer4500 [facility]in [place] [id number] Albumin/Globulin [Mass ratio] 1.4 {ratio} Normal 1.1-2.5 [facility] Work Phone: Comment on above: PATIENT WAS FASTINGP ERFORMED BY: LAURY [facility] Zolvlt4347 [facility] Hospitalblin [place] [id number] ALP [Catalytic activity/Vol] 148 [iU]/L Normal 25-150 [facility] Work Phone: Comment on above: PATIENT WAS FASTINGP ERFORMED BY: LAURY [facility] Lcrrtt5340 Stewart RoadDublin [place] [id number] ALP [Catalytic activity/Vol] 148 U/L Normal 25-150 [facility]; [facility] Work Phone: Comment on above: PATIENT WAS FASTINGP ERFORMED BY: LAURY [facility] Zcabdr0543 Stewart RoadDublin [place] [id number] ALT [Catalytic activity/Vol] 20 [iU]/L Normal 0-55 [facility] Work Phone: Comment on above: PATIENT WAS FASTINGP ERFORMED BY: LAURY [facility] Raswoi5431 Stewart RoadDublin [place] [id number] ALT [Catalytic activity/Vol] 20 U/L Normal 0-55 [facility]; [facility] Work Phone: Comment on above: PATIENT WAS FASTINGP ERFORMED BY: LAURY [facility] Yzxefs1347 Stewart RoadDublin [place] [id number] AST [Catalytic activity/Vol] 18 [iU]/L Normal 0-40 [facility] Work Phone: Comment on above: PATIENT WAS FASTINGP ERFORMED BY: LAURY [facility] Oaktsk9552 [address] RoadDublin [place] [id number] AST [Catalytic activity/Vol] 18 U/L Normal 0-40 [facility]; [facility] Work Phone: Comment on above: PATIENT WAS FASTINGP ERFORMED BY: LAURY [facility] Zccqet8752 Stewart RoadDublin [place] [id number] Bilirubin [Mass/Vol] 0.4 mg/dL Normal 0.1-1.2 [facility] Work Phone: Comment on above: PATIENT WAS FASTINGP ERFORMED BY: LAURY [facility] Ufybuy5833 [address] RoadDublin [place] [id number] Calcium [Mass/Vol] 9.2 mg/dL Normal 8.7-10.[address] [facility] Internal Medicine Work Phone: Comment on above: PATIENT WAS FASTINGP ERFORMED BY: [facility] Gemtla2633 [facility] [id number] Chloride [Moles/Vol] 100 mmol/L Normal 97-108 [facility] Work Phone: Comment on above: PATIENT WAS FASTINGP ERFORMED BY: [facility]Co Ywdefu3067 [facility] [id number] CO2 [Moles/Vol] 25 mmol/L Normal 20-32 [facility] Internal Medicine Work Phone: Comment on above: PATIENT WAS FASTINGP ERFORMED BY: [facility] Dbgbaw1306 [facility] [id number] Creatinine [Mass/Vol] 0.86 mg/dL Normal 0.76-1.27 [facility] Work Phone: Comment on above: PATIENT WAS FASTINGP ERFORMED BY: [facility] Xlquxt0498 [facility] [id number] GFR/1.73 sq M predicted among blacks MDRD (S/P/Bld) [Vol rate/Area] mL/min/{1.73_m2} Normal [facility] Work Phone: Comment on above: Note: Persistent red uction for 3 months or more in an eGFR<60 mL/min/1.73 m2 defines CKD. Patients with eGFR values>/=60 mL/min/1.73 m2 may also have CKD if evidence of persistentproteinuria is present. Additional information may be found [email or web address]. PATIENT WAS FASTINGP ERFORMED BY: [facility] Obprgk5455 [facility] [id number] GFR/1.73 sq M.predicted MDRD (S/P/Bld) [Vol rate/Area] mL/min/{1.73_m2} Normal [facility] Work Phone: Comment on above: PATIENT WAS FASTINGP ERFORMED BY: [facility] Qblinr4312 [facility] [id number] Globulin (S) [Mass/Vol] 3.0 g/dL Normal 1.5-4.5 [facility] Work Phone: Comment on above: PATIENT WAS FASTINGP ERFORMED BY: CB [facility] Wvxbjo8320 [address] RoadDublin [place] [id number] Glucose [Mass/Vol] 85 mg/dL Normal 65-[address] [facility] Internal Medicine Work Phone: Comment on above: PATIENT WAS FASTINGP ERFORMED BY: CB [facility] Ewxpzs8766 [address] RoadDublin [place] [id number] Potassium [Moles/Vol] 4.8 mmol/L Normal 3.5-5.2 [facility] Internal Medicine Work Phone: Comment on above: PATIENT WAS FASTINGP ERFORMED BY: CB [facility] Ccbvmj7145 [address] RoadDublin [place] [id number] Protein [Mass/Vol] 7.2 g/dL Normal 6.0-8.[address] [facility] Internal Medicine Work Phone: Comment on above: PATIENT WAS FASTINGP ERFORMED BY: LAURY [facility] Cuupum1487 [address] RoadDublin [place] [id number] Sodium [Moles/Vol] 137 mmol/L Normal 135-[address] [facility] Internal Medicine Work Phone: Comment on above: PATIENT WAS FASTINGP ERFORMED BY: LAURY [facility] Voqmra5890 [address] RoadDublin [place] [id number] Urea nitrogen [Mass/Vol] 13 mg/dL Normal 5-26 [facility] Internal Medicine Work Phone: Comment on above: PATIENT WAS FASTINGP ERFORMED BY: CB [facility] Fzqnxv4261 [address] RoadDublin [place] [id number] Urea nitrogen/Creatinin e [Mass ratio] 15 mg/mg Normal 8-27 [facility] Internal Medicine Work Phone: Comment on above: PATIENT WAS FASTINGP ERFORMED BY: CB [facility] Ruhtov3590 [address] RoadDublin [place] [id number] TSH ([id number])Ordered By: Pricilla Gutierrez on 07-10-2009 TSH Qn 2.050 {uIU/mL} Normal 0.450-4.500 [facility] Internal Medicine Work Phone: Comment on above: PATIENT WAS FASTINGP ERFORMED BY: LAURY [facility] Xgeoja0843 [address] RoadDublin [place] [id number] URINALYSIS, W/ MICRO ([id number]) Ordered By: Manager Regional Sales on 07-10-2009 Appearance (U) Clear Normal Comprehens ko Internal Medicine Work Phone: Comment on above: PATIENT WAS FASTINGP ERFORMED BY: LAURY [facility] Ufhsur0213 [address] RoadDublin [place] [id number] Bilirubin Ql (U) Negative Normal Comprehe nsive Internal Medicine Work Phone: Comment on above: PATIENT WAS FASTINGP ERFORMED BY: LAURY [facility] Dzkcix0355 [address] RoadDublin [place] [id number] Bilirubin Ql (U) Negative Normal Comprehe nsive Internal Medicine; [facility] Work Phone: Comment on above: PATIENT WAS FASTINGP ERFORMED BY: LAURY [facility] Tadwcz2599 [address] RoadDublin [place] [id number] Color (U) Yellow Normal [facility] Work Phone: Comment on above: PATIENT WAS FASTINGP ERFORMED BY: LAURY [facility] Qurrba1525 [address] RoadDublin [place] [id number] Glucose Ql (U) Negative Normal Comprehens ko Internal Medicine Work Phone: Comment on above: PATIENT WAS FASTINGP ERFORMED BY: LAURY [facility] Tcpxiq6718 [address] RoadDublin [place] [id number] Glucose Ql (U) Negative Normal Comprehens ko Internal Medicine; [facility] Work Phone: Comment on above: PATIENT WAS FASTINGP ERFORMED BY: LAURY [facility] Kjggax6166 [address] RoadDublin [place] [id number] Hemoglobin Ql (U) Negative Normal [facility] Work Phone: Comment on above: PATIENT WAS FASTINGP ERFORMED BY: LAURY [facility] [id number] Stewart RoadDublin [place] [id number] Hemoglobin Ql (U) Negative Normal Compre[facility]; [facility] Work Phone: Comment on above: PATIENT WAS FASTINGP ERFORMED BY: LAURY [facility] [id number] Stewart RoadDublin [place] [id number] Ketones Ql (U) Negative Normal Comprehens [facility] Work Phone: Comment on above: PATIENT WAS FASTINGP ERFORMED BY: LAURY [facility] [id number] Stewart RoadDublin [place] [id number] Ketones Ql (U) Negative Normal [facility]; [facility] Work Phone: Comment on above: PATIENT WAS FASTINGP ERFORMED BY: LAURY [facility] [id number] [address]wart RoadDublin [place] [id number] Leukocyte esterase Test strip Ql (U) Negative Normal [facility] Work Phone: Comment on above: PATIENT WAS FASTINGP ERFORMED BY: LAURY Hutchinsonlin6370 [address] RoadDublin [place] [id number] Leukocyte esterase Test strip Ql (U) Negative Normal [facility]; [facility] Work Phone: Comment on above: PATIENT WAS FASTINGP ERFORMED BY: LAURY Hutchinsonlin6370 [address] RoadDublin [place] [id number] Microscopic observation LM Nom (Urine sed) See below: Normal [facility] Work Phone: Comment on above: PATIENT WAS FASTINGP ERFORMED BY: LAURY Hutchinsonlin6370 [address] RoadDublin [place] [id number] Microscopic observation LM Nom (Urine sed) MICRON Normal [facility] Work Phone: Comment on above: Microscopic follows if indicated. PATIENT WAS FASTINGP ERFORMED BY: LAURY [facility] [id number] Stewart RoadDublin [place] [id number] Nitrite Ql (U) Negative Normal [facility] Work Phone: Comment on above: PATIENT WAS FASTINGP ERFORMED BY: LAURY [facility] [id number] [address] RoadDublin [place] [id number] Nitrite Ql (U) Negative Normal Com[facility]; [facility] Work Phone: Comment on above: PATIENT WAS FASTINGP ERFORMED BY: [place] [id number] [address] [facility] [id number] pH (U) 8.0 [pH] Abnormal 5.0-7.5 [facility] Work Phone: Comment on above: PATIENT WAS FASTINGP ERFORMED BY: [facility] [id number] [address] [facility] [id number] Protein Ql (U) Negative Normal [facility] Work Phone: Comment on above: PATIENT WAS FASTINGP ERFORMED BY: [facility] [id number] [address] [facility] [id number] Protein Ql (U) Negative Normal Com[facility]; [facility] Work Phone: Comment on above: PATIENT WAS FASTINGP ERFORMED BY: LAURY [facility] [id number] [facility] [id number] Specific gravity (U) [Rel density] 1.023 1 Normal 1.005-1.030 [facility] Work Phone: Comment on above: PATIENT WAS FASTINGP ERFORMED BY: [facility]6370 [facility] [id number] Urobilinogen (U) [Mass/Vol] 0.2 mg/dL Normal 0.0-1.9 [facility]; [facility] Work Phone: Comment on above: PATIENT WAS FASTINGP ERFORMED BY: [facility]6370 [facility] [id number] Urobilinogen Test strip (U) [Mass/Vol] 0.2 mg/dL Normal 0.0-1.9 [facility] Work Phone: Comment on above: PATIENT WAS FASTINGP ERFORMED BY: [facility]6370 [facility] [id number] Rapid Flu ([id number] x 2)Ordered By: Ninoska Rene on 02-27-2009 FLUAV Ag IA Ql (Throat) Positive Normal [facility] Work Phone: Comment on above: positive A FLUAV Ag IA Ql (Throat) Positive Normal [facility]; [facility] Work Phone: Comment on above: positive A Vital Signs Date Time Vital Sign Value Performing Clinician Facility 05-07-2022 06:00-0500 Body temperature 98.4 [degF] Dr. Kamilla Alberto Work Phone: [facility] Work Phone: 05-07-2022 06:00-0500 Diastolic blood pressure 50 mm[Hg] Dr. Kamilla Alberto Work Phone: [facility] Work Phone: 05-07-2022 06:00-0500 Heart rate 104 /min Dr. Kamilla Alberto Work Phone: [facility] Work Phone: 05-07-2022 06:00-0500 Respiratory rate 22 /min Dr. Kamilla Alberto Work Phone: [facility] Work Phone: 05-07-2022 06:00-0500 SaO2% (BldA) [Mass fraction] 93 % Dr. Kamilla Alberto Work Phone: [facility] Work Phone: 05-07-2022 06:00-0500 Systolic blood pressure 94 mm[Hg] Dr. Kamilla Alberto Work Phone: [facility] Work Phone: 05-06-2022 22:09-0500 Body height 190.[address] Kamilla Alberto Work Phone: [facility] Work Phone: 05-06-2022 22:09-0500 Body mass index (BMI) [Ratio] 46.1 kg/m2 Dr. Kamilla Alberto Work Phone: [facility] Work Phone: 05-06-2022 22:09-0500 Body weight 167.[address] Kamilla Alberto Work Phone: [facility] Work Phone: 08-16-2019 14:56-0400 Body height 193.04 cm Mariana Coello CMA [facility]; [facility] Work Phone: 08-16-2019 14:56-0400 Body mass index (BMI) [Ratio] 44.19 kg/m2 Mariana Coello CMA [facility]; [facility] Work Phone: 08-16-2019 14:56-0400 Body surface area Derived from formula 2.85 m2 Mariana Coello CMA [facility]; [facility] Work Phone: 08-16-2019 14:56-0400 Body temperature 96.6 [degF] Mariana Coello CMA [facility]; [facility] Work Phone: Comment on above: Method: Temporal 08-16-2019 14:56-0400 Body weight 164.66 kg Mariana Coello CMA [facility]; [facility] Work Phone: 08-16-2019 14:56-0400 Diastolic blood pressure 94 mm[Hg] Mariana Coello CMA [facility]; [facility] Work Phone: Comment on above: Patient Position: Sitting; Cuff Location : Left Arm; Cuff Size: Standard 08-16-2019 14:56-0400 Heart rate 107 /min Mariana Coello CMA [facility]; [facility] Work Phone: Comment on above: Pattern: Regular 08-16-2019 14:56-0400 Respiratory rate 20 /min Mariana Coello CMA [facility]; [facility] Work Phone: Comment on above: Pattern: Unlabored 08-16-2019 14:56-0400 SaO2% (BldA) [Mass fraction] 96 % Mariana Coello [facility]; [facility] Work Phone: Comment on above: Room air 08-16-2019 14:56-0400 Systolic blood pressure 162 mm[Hg] Mariana Coello CMA [facility]; [facility] Work Phone: Comment on above: Patient Position: Sitting; Cuff Location : Left Arm; Cuff Size: Standard 11-21-2018 16:44-0400 BMI (Body Mass Index) 41.99 kg/m2 Brie Mejia [facility] Internal Medicine Work Phone: 11-21-2018 16:44-0400 Body Temperature 97.8 [degF] Brie Mejia [facility] Internal Medicine Work Phone: Comment on above: Method: Temporal 11-21-2018 16:44-0400 Body weight 156.49 kg Brie GenJuice [facility] Internal Medicine Work Phone: 11-21-2018 16:44-0400 BP Diastolic 82 mm[Hg] Brie GenJuice [facility] Internal Medicine Work Phone: Comment on above: Patient Position: Sitting; Cuff Location : Left Arm; Cuff Size: Standard 11-21-2018 16:44-0400 BP Systolic 130 mm[Hg] Brie GenJuice [facility] Internal Medicine Work Phone: Comment on above: Patient Position: Sitting; Cuff Location : Left Arm; Cuff Size: Standard 11-21-2018 16:44-0400 BSA (Body Surface Area) 2.79 m2 Brie GenJuice [facility] Internal Medicine Work Phone: 11-21-2018 16:44-0400 Height 193.04 cm Brie GenJuice [facility] Internal Medicine Work Phone: 11-21-2018 16:44-0400 Pulse (Heart Rate) 103 /min Brie GenJuice [facility] Internal Medicine Work Phone: Comment on above: Pattern: Regular 11-21-2018 16:44-0400 Pulse Oximetry 96 % Kamilla Alberto [facility] Internal Medicine Work Phone: Comment on above: Room air 11-21-2018 16:44-0400 Respiratory Rate 18 /min Brie GenJuice [facility] Internal Medicine Work Phone: Comment on above: Pattern: Unlabored 11-21-2018 16:44-0400 SaO2% (BldA) [Mass fraction] 96 % Brie GenJuice [facility] Internal Medicine; [facility] Work Phone: Comment on above: Room air 11-27-2016 07:23-0400 BMI (Body Mass Index) 39.32 kg/m2 Dorita Lam RN [facility] Internal Medicine Work Phone: 11-27-2016 07:23-0400 Body weight 146.51 kg Dorita Lam RN [facility] Work Phone: 11-27-2016 07:23-0400 BP Diastolic 78 mm[Hg] Dorita Lam RN [facility] Work Phone: Comment on above: Patient Position: Sitting; Cuff Location : Left Arm; Cuff Size: Standard 11-27-2016 07:23-0400 BP Systolic 132 mm[Hg] Dorita Lam RN [facility] Work Phone: Comment on above: Patient Position: Sitting; Cuff Location : Left Arm; Cuff Size: Standard 11-27-2016 07:23-0400 BSA (Body Surface Area) 2.72 m2 Dorita Lam RN [facility] Work Phone: 11-27-2016 07:23-0400 Height 193.04 cm Dorita Lam RN [facility] Work Phone: 11-27-2016 07:23-0400 Pulse (Heart Rate) 72 /min Dorita Lam RN [facility] Work Phone: Comment on above: Pattern: Regular 11-27-2016 07:23-0400 Pulse Oximetry 98 % Kamilla Alvaradoon [facility] Work Phone: Comment on above: Room air 11-27-2016 07:23-0400 Respiratory Rate 16 /min Dorita Lam RN [facility] Work Phone: Comment on above: Pattern: Unlabored 11-27-2016 07:23-0400 SaO2% (BldA) [Mass fraction] 98 % Dorita Lam RN [facility]; [facility] Work Phone: Comment on above: Room air 02-14-2016 08:00-0400 BMI (Body Mass Index) 39.32 kg/m2 Duane Mitchell RN [facility] Work Phone: 02-14-2016 08:00-0400 Body weight 146.51 kg Duane Mitchell RN [facility] Work Phone: 02-14-2016 08:00-0400 BP Diastolic 80 mm[Hg] Duane Mitchell RN [facility] Work Phone: Comment on above: Patient Position: Sitting; Cuff Location : Left Arm; Cuff Size: Large 02-14-2016 08:00-0400 BP Systolic 142 mm[Hg] Duane Mitchell RN [facility] Work Phone: Comment on above: Patient Position: Sitting; Cuff Location : Left Arm; Cuff Size: Large 02-14-2016 08:00-0400 BSA (Body Surface Area) 2.72 m2 Duane Mitchell RN [facility] Work Phone: 02-14-2016 08:00-0400 Height 193.04 cm Duane Mitchell RN [facility] Work Phone: 02-14-2016 08:00-0400 Pulse (Heart Rate) 86 /min Duane Mitchell RN [facility] Work Phone: Comment on above: Pattern: Regular 02-14-2016 08:00-0400 Pulse Oximetry 96 % Kamilla Alberto [facility] Work Phone: Comment on above: Room air 02-14-2016 08:00-0400 Respiratory Rate 18 /min Duane Mitchell RN [facility] Work Phone: Comment on above: Pattern: Unlabored 02-14-2016 08:00-0400 SaO2% (BldA) [Mass fraction] 96 % Duane Mitchell RN [facility]; [facility] Work Phone: Comment on above: Room air 07-12-2015 07:36-0500 BMI (Body Mass Index) 38.95 kg/m2 JERAD Smith LPN [facility] Work Phone: 07-12-2015 07:36-0500 Body Temperature 97.9 [degF] JERAD Smith LPN [facility] Work Phone: Comment on above: Method: Temporal 07-12-2015 07:36-0500 Body weight 145.15 kg JERAD Smith LPN [facility] Work Phone: 07-12-2015 07:36-0500 BP Diastolic 90 mm[Hg] JERAD Smith LPN [facility] Work Phone: Comment on above: Patient Position: Sitting; Cuff Location : Left Arm; Cuff Size: Large 07-12-2015 07:36-0500 BP Systolic 130 mm[Hg] JERAD Smith LPN [facility] Work Phone: Comment on above: Patient Position: Sitting; Cuff Location : Left Arm; Cuff Size: Large 07-12-2015 07:36-0500 BSA (Body Surface Area) 2.71 m2 JERAD Smith LPN [facility] Work Phone: 07-12-2015 07:36-0500 Height 193.04 cm JERAD Smith LPN [facility] Internal Medicine Work Phone: 07-12-2015 07:36-0500 Pulse (Heart Rate) 76 /min JERAD Smith LPN [facility] Work Phone: Comment on above: Pattern: Regular 07-12-2015 07:36-0500 Pulse Oximetry 96 % Kamilla Remy [facility] Internal Medicine Work Phone: Comment on above: Room air 07-12-2015 07:36-0500 Respiratory Rate 18 /min JERAD Smith LPN [facility] Work Phone: Comment on above: Pattern: Unlabored 07-12-2015 07:36-0500 SaO2% (BldA) [Mass fraction] 96 % JERAD Smith LPN [facility]; [facility] Work Phone: Comment on above: Room air 05-31-2015 07:35-0500 BMI (Body Mass Index) 38.1 kg/m2 JERAD Smith LPN [facility] Internal Medicine Work Phone: 05-31-2015 07:35-0500 Body Temperature 97.6 [degF] JERAD Smith LPN [facility] Internal Medicine Work Phone: Comment on above: Method: Temporal 05-31-2015 07:35-0500 Body weight 141.98 kg JERAD Smith LPN [facility] Internal Medicine Work Phone: 05-31-2015 07:35-0500 BP Diastolic 84 mm[Hg] JERAD Smith LPN [facility] Work Phone: Comment on above: Patient Position: Sitting; Cuff Location : Left Arm; Cuff Size: Large 05-31-2015 07:35-0500 BP Systolic 126 mm[Hg] JERAD Smith LPN [facility] Work Phone: Comment on above: Patient Position: Sitting; Cuff Location : Left Arm; Cuff Size: Large 05-31-2015 07:35-0500 BSA (Body Surface Area) 2.68 m2 JERAD Smith LPN [facility] Work Phone: 05-31-2015 07:35-0500 Height 193.04 cm JERAD Smith LPN [facility] Internal Medicine Work Phone: 05-31-2015 07:35-0500 Pulse (Heart Rate) 78 /min JERAD Smith LPN [facility] Work Phone: Comment on above: Pattern: Regular 05-31-2015 07:35-0500 Pulse Oximetry 97 % Kamilla Remy [facility] Work Phone: Comment on above: Room air 05-31-2015 07:35-0500 Respiratory Rate 18 /min JERAD Smith LPN [facility] Work Phone: Comment on above: Pattern: Unlabored 05-31-2015 07:35-0500 SaO2% (BldA) [Mass fraction] 97 % JERAD Smith LPN [facility]; [facility] Work Phone: Comment on above: Room air 04-03-2015 08:45-0500 BMI (Body Mass Index) 37.98 kg/m2 JERAD Smith LPN [facility] Work Phone: 04-03-2015 08:45-0500 Body Temperature 98.4 [degF] JERAD Smith LPN [facility] Internal Medicine Work Phone: Comment on above: Method: Temporal 04-03-2015 08:45-0500 Body weight 141.52 kg JERAD Smith LPN [facility] Internal Medicine Work Phone: 04-03-2015 08:45-0500 BP Diastolic 78 mm[Hg] JERAD Smith LPN [facility] Work Phone: Comment on above: Patient Position: Sitting; Cuff Location : Left Arm; Cuff Size: Large 04-03-2015 08:45-0500 BP Systolic 124 mm[Hg] JERAD Smith LPN [facility] Work Phone: Comment on above: Patient Position: Sitting; Cuff Location : Left Arm; Cuff Size: Large 04-03-2015 08:45-0500 BSA (Body Surface Area) 2.68 m2 JERAD Smith LPN [facility] Work Phone: 04-03-2015 08:45-0500 Height 193.04 cm JERAD Smith LPN [facility] Internal Medicine Work Phone: 04-03-2015 08:45-0500 Pulse (Heart Rate) 90 /min JERAD Smith LPN [facility] Work Phone: Comment on above: Pattern: Regular 04-03-2015 08:45-0500 Pulse Oximetry 98 % Kamilla Remy [facility] Work Phone: Comment on above: Room air 04-03-2015 08:45-0500 Respiratory Rate 20 /min JERAD Smith LPN [facility] Work Phone: Comment on above: Pattern: Unlabored 04-03-2015 08:45-0500 SaO2% (BldA) [Mass fraction] 98 % JERAD Smith LPN [facility]; [facility] Work Phone: Comment on above: Room air 03-08-2015 09:36-0500 BMI (Body Mass Index) 40.23 kg/m2 Tala Bell MD Work Phone: [facility] Work Phone: 03-08-2015 09:36-0500 Body Temperature 98.3 [degF] Tala Bell MD Work Phone: [facility] Work Phone: Comment on above: Method: Tympanic 03-08-2015 09:36-0500 Body weight 149.91 kg Tala Bell MD Work Phone: [facility] Work Phone: 03-08-2015 09:36-0500 BP Diastolic 82 mm[Hg] Tala Bell MD Work Phone: [facility] Work Phone: Comment on above: Patient Position: Sitting; Cuff Location : Left Arm; Cuff Size: Standard 03-08-2015 09:36-0500 BP Systolic 140 mm[Hg] Tala Bell MD Work Phone: [facility] Work Phone: Comment on above: Patient Position: Sitting; Cuff Location : Left Arm; Cuff Size: Standard 03-08-2015 09:36-0500 BSA (Body Surface Area) 2.74 m2 Tala Bell MD Work Phone: [facility] Work Phone: 03-08-2015 09:36-0500 Height 193.04 cm Tala Bell MD Work Phone: [facility] Work Phone: 03-08-2015 09:36-0500 Pulse (Heart Rate) 72 /min Tala Bell MD Work Phone: [facility] Work Phone: Comment on above: Pattern: Regular 03-08-2015 09:36-0500 Pulse Oximetry 98 % Kamilla Alvaradoon [facility] Work Phone: Comment on above: Room air 03-08-2015 09:36-0500 Respiratory Rate 18 /min Tala Bell MD Work Phone: [facility] Work Phone: Comment on above: Pattern: Unlabored 03-08-2015 09:36-0500 SaO2% (BldA) [Mass fraction] 98 % Tala Bell MD Work Phone: [facility]; [facility] Work Phone: Comment on above: Room air 10-29-2014 13:10-0400 BMI (Body Mass Index) 40.18 kg/m2 Dorita Lam RN [facility] Work Phone: 10-29-2014 13:10-0400 Body Temperature 98.5 [degF] Dorita Lam RN [facility] Work Phone: Comment on above: Method: Temporal 10-29-2014 13:10-0400 Body weight 149.74 kg Dorita Lam RN [facility] Work Phone: 10-29-2014 13:10-0400 BP Diastolic 80 mm[Hg] Dorita Lam RN [facility] Work Phone: Comment on above: Patient Position: Sitting; Cuff Location : Left Arm; Cuff Size: Standard 10-29-2014 13:10-0400 BP Systolic 132 mm[Hg] Dorita Lam RN [facility] Work Phone: Comment on above: Patient Position: Sitting; Cuff Location : Left Arm; Cuff Size: Standard 10-29-2014 13:10-0400 BSA (Body Surface Area) 2.74 m2 Dorita Lam RN [facility] Work Phone: 10-29-2014 13:10-0400 Height 193.04 cm Dorita Lam RN [facility] Work Phone: 10-29-2014 13:10-0400 Pulse (Heart Rate) 72 /min Dorita Lam RN [facility] Work Phone: Comment on above: Pattern: Regular 10-29-2014 13:10-0400 Pulse Oximetry 98 % Kamilla Alberto [facility] Work Phone: Comment on above: Room air 10-29-2014 13:10-0400 Respiratory Rate 16 /min Dorita Lam RN [facility] Work Phone: Comment on above: Pattern: Unlabored 10-29-2014 13:10-0400 SaO2% (BldA) [Mass fraction] 98 % Dorita Lam RN [facility]; [facility] Work Phone: Comment on above: Room air 06-13-2014 08:25-0500 BMI (Body Mass Index) 40.18 kg/m2 Leslie Slarb [employer]GE [employer]ER Comprehen sive Internal Medicine Work Phone: 06-13-2014 08:25-0500 Body Temperature 97.4 [degF] Leslie Slarb [employer] [facility] Work Phone: 06-13-2014 08:25-0500 Body weight 149.74 kg Leslie Vanesarb [employer] T[employer]ER [facility] Work Phone: 06-13-2014 08:25-0500 BP Diastolic 78 mm[Hg] Leslie Slarb [employer]IDGE TENDER [facility] Work Phone: Comment on above: Patient Position: Sitting; Cuff Location : Left Arm; Cuff Size: Standard 06-13-2014 08:25-0500 BP Systolic 118 mm[Hg] Leslie Slarb BRIDGE TENDER [facility] Work Phone: Comment on above: Patient Position: Sitting; Cuff Location : Left Arm; Cuff Size: Standard 06-13-2014 08:25-0500 BSA (Body Surface Area) 2.74 m2 Leslie Slarb BRIDGE TENDER [facility] Work Phone: 06-13-2014 08:25-0500 Height 193.04 cm Leslie Slarb BRIDGE TENDER [facility] Work Phone: 06-13-2014 08:25-0500 Pulse (Heart Rate) 103 /min Leslie Vanesarb BRIDGE TENDER Comprehensiv e Internal Medicine Work Phone: Comment on above: Pattern: Regular 06-13-2014 08:25-0500 Pulse Oximetry 98 % Kamilla Alberto [facility] Work Phone: Comment on above: Room air 06-13-2014 08:25-0500 Respiratory Rate 16 /min Leslie Slarb BRIDGE TENDER [facility] Work Phone: Comment on above: Pattern: Unlabored 06-13-2014 08:25-0500 SaO2% (BldA) [Mass fraction] 98 % Leslie Slarb BRIDGE TENDER [facility]; [facility] Work Phone: Comment on above: Room air 05-22-2011 10:54-0500 BMI (Body Mass Index) 37.19 kg/m2 Duane Mitchell RN [facility] Work Phone: 05-22-2011 10:54-0500 Body Temperature 97.4 [degF] Duane Mitchell RN [facility] Work Phone: Comment on above: Method: Oral 05-22-2011 10:54-0500 Body weight 138.57 kg Duane Mitchell RN [facility] Work Phone: 05-22-2011 10:54-0500 BP Diastolic 80 mm[Hg] Duane Mitchell RN [facility] Work Phone: Comment on above: Patient Position: Sitting; Cuff Location : Left Arm; Cuff Size: Large 05-22-2011 10:54-0500 BP Systolic 148 mm[Hg] Duane Mitchell RN [facility] Work Phone: Comment on above: Patient Position: Sitting; Cuff Location : Left Arm; Cuff Size: Large 05-22-2011 10:54-0500 BSA (Body Surface Area) 2.65 m2 Duane Mitchell RN [facility] Work Phone: 05-22-2011 10:54-0500 Height 193.04 cm Duane Mitchell RN [facility] Work Phone: 05-22-2011 10:54-0500 Pulse (Heart Rate) 60 /min Duane Mitchell RN [facility] Work Phone: Comment on above: Pattern: Regular 05-22-2011 10:54-0500 Respiratory Rate 20 /min Duane Mitchell RN [facility] Work Phone: Comment on above: Pattern: Unlabored 12-17-2010 08:04-0400 BMI (Body Mass Index) 37.19 kg/m2 Radha Nielsen LPN [facility] Work Phone: 12-17-2010 08:04-0400 Body Temperature 97.7 [degF] Radha Nielsen LPN [facility] Work Phone: Comment on above: Method: Oral 12-17-2010 08:04-0400 Body weight 138.57 kg Radha Morales GARVIN [facility] Work Phone: 12-17-2010 08:04-0400 BP Diastolic 84 mm[Hg] Radha Nielsen LPN [facility] Work Phone: Comment on above: Patient Position: Sitting; Cuff Location : Left Arm; Cuff Size: Standard 12-17-2010 08:04-0400 BP Systolic 134 mm[Hg] Radha Nielsen LPN [facility] Work Phone: Comment on above: Patient Position: Sitting; Cuff Location : Left Arm; Cuff Size: Standard 12-17-2010 08:04-0400 BSA (Body Surface Area) 2.65 m2 Radha Nielsen LPN [facility] Work Phone: 12-17-2010 08:04-0400 Height 193.04 cm Radha Nielsen LPN [facility] Work Phone: 12-17-2010 08:04-0400 Pulse (Heart Rate) 82 /min Radha Nielsne LPN [facility] Work Phone: Comment on above: Pattern: Regular 12-17-2010 08:04-0400 Respiratory Rate 16 /min Radha Nielsen LPN [facility] Work Phone: 12-02-2010 12:54-0400 BMI (Body Mass Index) 37.19 kg/m2 Radha Nielsen LPN [facility] Work Phone: 12-02-2010 12:54-0400 Body Temperature 98.8 [degF] Radha Nielsen LPN [facility] Work Phone: Comment on above: Method: Oral 12-02-2010 12:54-0400 Body weight 138.57 kg Radha Nielsen LPN [facility] Work Phone: 12-02-2010 12:54-0400 BP Diastolic 86 mm[Hg] Radha Nielsen LPN [facility] Work Phone: Comment on above: Patient Position: Sitting; Cuff Location : Left Arm; Cuff Size: Standard 12-02-2010 12:54-0400 BP Systolic 146 mm[Hg] Radha Nielsen LPN [facility] Work Phone: Comment on above: Patient Position: Sitting; Cuff Location : Left Arm; Cuff Size: Standard 12-02-2010 12:54-0400 BSA (Body Surface Area) 2.65 m2 Radha Nielsen LPN [facility] Work Phone: 12-02-2010 12:54-0400 Height 193.04 cm Radha Nielsen LPN [facility] Work Phone: 12-02-2010 12:54-0400 Pulse (Heart Rate) 92 /min Radha Nielsen LPN [facility] Work Phone: Comment on above: Pattern: Regular 12-02-2010 12:54-0400 Respiratory Rate 17 /min Radha Nielsen BHARATHI [facility] Work Phone: Comment on above: Pattern: Unlabored 11-27-2010 14:56-0400 BMI (Body Mass Index) 37.19 kg/m2 Duane Mitchell RN [facility] Work Phone: 11-27-2010 14:56-0400 Body weight 138.57 kg Duane Mitchell RN [facility] Work Phone: 11-27-2010 14:56-0400 BP Diastolic 84 mm[Hg] Duane Mitchell RN [facility] Work Phone: Comment on above: Patient Position: Sitting; Cuff Location : Left Arm; Cuff Size: Large 11-27-2010 14:56-0400 BP Systolic 150 mm[Hg] Duane Mitchell RN [facility] Work Phone: Comment on above: Patient Position: Sitting; Cuff Location : Left Arm; Cuff Size: Large 11-27-2010 14:56-0400 BSA (Body Surface Area) 2.65 m2 Duane Mitchell RN [facility] Work Phone: 11-27-2010 14:56-0400 Height 193.04 cm Duane Mitchell RN [facility] Work Phone: 11-27-2010 14:56-0400 Pulse (Heart Rate) 80 /min Duane Mitchell RN [facility] Work Phone: Comment on above: Pattern: Regular 11-27-2010 14:56-0400 Respiratory Rate 16 /min Duane Messenger RN [facility] Work Phone: Comment on above: Pattern: Unlabored 01-24-2010 07:27-0400 Body Temperature 98 [degF] Kamilla Alberto [facility] Work Phone: Comment on above: Method: Oral 01-24-2010 07:27-0400 Body weight 138.57 kg Kamilla Alberto [facility] Work Phone: 01-24-2010 07:27-0400 BP Diastolic 80 mm[Hg] Kamilla Alberto [facility] Work Phone: Comment on above: Patient Position: Sitting; Cuff Location : Left Arm; Cuff Size: Large 01-24-2010 07:27-0400 BP Systolic 128 mm[Hg] Kamilla Alberto [facility] Work Phone: Comment on above: Patient Position: Sitting; Cuff Location : Left Arm; Cuff Size: Large 01-24-2010 07:27-0400 Pulse (Heart Rate) 88 /min Kamilla Alberto [facility] Work Phone: Comment on above: Pattern: Regular 01-24-2010 07:27-0400 Respiratory Rate 16 /min Kamilla Alberto [facility] Work Phone: Comment on above: Pattern: Unlabored 12-20-2009 13:25-0400 Body weight 137.55 kg Duane Mitchell RN [facility] Work Phone: 12-20-2009 13:25-0400 BP Diastolic 82 mm[Hg] Duane Mitchell RN [facility] Work Phone: Comment on above: Patient Position: Sitting; Cuff Location : Left Arm; Cuff Size: Large 12-20-2009 13:25-0400 BP Systolic 124 mm[Hg] Duane Mitchell RN [facility] Work Phone: Comment on above: Patient Position: Sitting; Cuff Location : Left Arm; Cuff Size: Large 08-06-2009 08:07-0400 BMI (Body Mass Index) 36.64 kg/m2 Radha Nielsen LPN [facility] Work Phone: 08-06-2009 08:07-0400 Body Temperature 97.1 [degF] Radha Nielsen LPN [facility] Work Phone: Comment on above: Method: Oral 08-06-2009 08:07-0400 Body weight 142.88 kg Radha Nielsen LPN [facility] Work Phone: 08-06-2009 08:07-0400 BP Diastolic 80 mm[Hg] Radha Nielsen LPN [facility] Work Phone: Comment on above: Patient Position: Sitting; Cuff Location : Left Arm; Cuff Size: Standard 08-06-2009 08:07-0400 BP Systolic 136 mm[Hg] Radha Nielsen LPN [facility] Work Phone: Comment on above: Patient Position: Sitting; Cuff Location : Left Arm; Cuff Size: Standard 08-06-2009 08:07-0400 BSA (Body Surface Area) 2.73 m2 Radha Nielsen LPN [facility] Work Phone: 08-06-2009 08:07-0400 Height 197.49 cm Radha Nielsen LPN [facility] Work Phone: 08-06-2009 08:07-0400 Pulse (Heart Rate) 82 /min Radha Nielsen LPN [facility] Work Phone: Comment on above: Pattern: Regular 08-06-2009 08:07-0400 Respiratory Rate 15 /min Radha Nielsen LPN [facility] Work Phone: Comment on above: Pattern: Unlabored 07-23-2009 09:52-0400 BMI (Body Mass Index) 36.64 kg/m2 Radha Nielsen LPN [facility] Work Phone: 07-23-2009 09:52-0400 Body Temperature 97.6 [degF] Radha Nielsen LPN [facility] Work Phone: Comment on above: Method: Oral 07-23-2009 09:52-0400 Body weight 142.88 kg Radha Nielsen LPN [facility] Work Phone: 07-23-2009 09:52-0400 BP Diastolic 78 mm[Hg] Radha Nielsen LPN [facility] Work Phone: Comment on above: Patient Position: Sitting; Cuff Location : Left Arm; Cuff Size: Standard 07-23-2009 09:52-0400 BP Systolic 132 mm[Hg] Radha Nielsen LPN [facility] Work Phone: Comment on above: Patient Position: Sitting; Cuff Location : Left Arm; Cuff Size: Standard 07-23-2009 09:52-0400 BSA (Body Surface Area) 2.73 m2 Radha Nielsen LPN [facility] Work Phone: 07-23-2009 09:52-0400 Height 197.49 cm Radha Nielsen LPN [facility] Work Phone: 07-23-2009 09:52-0400 Pulse (Heart Rate) 84 /min Radha Nielsen LPN [facility] Work Phone: Comment on above: Pattern: Regular 07-23-2009 09:52-0400 Respiratory Rate 14 /min Radha Nielsen LPN [facility] Work Phone: Comment on above: Pattern: Unlabored 07-03-2009 14:13-0500 Body Temperature 98.2 [degF] Radha Nielsen LPN [facility] Work Phone: Comment on above: Method: Oral 07-03-2009 14:13-0500 BP Diastolic 84 mm[Hg] Radha Nielsen LPN [facility] Work Phone: Comment on above: Patient Position: Sitting; Cuff Location : Left Arm; Cuff Size: Standard 07-03-2009 14:13-0500 BP Systolic 140 mm[Hg] Radha Nielsen LPN [facility] Work Phone: Comment on above: Patient Position: Sitting; Cuff Location : Left Arm; Cuff Size: Standard 07-03-2009 14:13-0500 Pulse (Heart Rate) 86 /min Radha Nielsen LPN [facility] Work Phone: Comment on above: Pattern: Regular 07-03-2009 14:13-0500 Respiratory Rate 18 /min Radha Nielsen [facility] Work Phone: Comment on above: Pattern: Unlabored 03-12-2009 10:54-0500 BMI (Body Mass Index) 36.64 kg/m2 JERAD Smith [employer] [facility] Work Phone: 03-12-2009 10:54-0500 Body weight 142.88 kg JERAD Smith [facility] Work Phone: 03-12-2009 10:54-0500 BP Diastolic 82 mm[Hg] JERAD Smith [facility] Work Phone: Comment on above: Patient Position: Sitting; Cuff Location : Left Arm; Cuff Size: Large 03-12-2009 10:54-0500 BP Systolic 132 mm[Hg] JERAD Smith [facility] Work Phone: Comment on above: Patient Position: Sitting; Cuff Location : Left Arm; Cuff Size: Large 03-12-2009 10:54-0500 BSA (Body Surface Area) 2.73 m2 JERAD Smith [facility] Work Phone: 03-12-2009 10:54-0500 Head Circumference 0 cm Kamilla Alberto [facility] Work Phone: 03-12-2009 10:54-0500 Head Occipital-frontal circumference 0 cm JERAD Smith [facility]; [facility] Work Phone: 03-12-2009 10:54-0500 Height 197.49 cm JERAD Smith [facility] Work Phone: 03-12-2009 10:54-0500 Pulse (Heart Rate) 88 /min JERAD Smith [facility] Work Phone: Comment on above: Pattern: Regular 03-12-2009 10:54-0500 Respiratory Rate 18 /min JERAD Smith [facility] Work Phone: Comment on above: Pattern: Unlabored 02-27-2009 13:20-0400 BMI (Body Mass Index) 38.34 kg/m2 aKmilla Alberto [facility] Work Phone: 02-27-2009 13:20-0400 Body Temperature 98 [degF] Kamilla Alberto [facility] Work Phone: Comment on above: Method: Oral 02-27-2009 13:20-0400 Body weight 142.88 kg Kamilla Alberto [facility] Work Phone: 02-27-2009 13:20-0400 BP Diastolic 80 mm[Hg] Kamilla Alberto [facility] Work Phone: Comment on above: Patient Position: Sitting; Cuff Location : Left Arm; Cuff Size: Large 02-27-2009 13:20-0400 BP Systolic 136 mm[Hg] Kamilla Alberto [facility] Work Phone: Comment on above: Patient Position: Sitting; Cuff Location : Left Arm; Cuff Size: Large 02-27-2009 13:20-0400 BSA (Body Surface Area) 2.69 m2 Kamilla Alberto [facility] Work Phone: 02-27-2009 13:20-0400 Head Circumference 0 cm Kamilla Alberto [facility] Work Phone: 02-27-2009 13:20-0400 Head Occipital-frontal circumference 0 cm Kamilla Alberto DO Work Phone: [facility]; [facility] Work Phone: 02-27-2009 13:20-0400 Height 193.04 cm Kamilla Alberto [facility] Work Phone: 02-27-2009 13:20-0400 Pulse (Heart Rate) 64 /min Kamilla Alberto [facility] Work Phone: Comment on above: Pattern: Regular 02-27-2009 13:20-0400 Respiratory Rate 18 /min Kamilla Alvaradoon [facility] Work Phone: Comment on above: Pattern: Unlabored Encounters Encounter Date Encounter Type Care Provider Facility Start: 12-28-2024 ambulatory Yemi Friend Facility :[facility] Start: 05-07-2022 Non-patient / Non-visit Dr. Daniel Alberto Work Phone: [facility] Start: 05-07-2022 Evaluation and management of inpatient Dr. Kamilla Alberto Work Phone: [facility] Start: 05-29-2021 End: 05-29-2021 Periodic preventive med est patient 18-39 yrs Kamilla Alberto DO Work Phone: [facility] Start: 08-16-2019 End: 08-16-2019 Office outpatient visit 10 minutes Kamilla Alberto DO Work Phone: [facility] Start: 11-21-2018 End: 11-21-2018 Office outpatient visit 15 minutes Kamilla [facility] Start: 04-02-2018 End: 04-04-2018 Patient encounter procedure ANNA JUICERubi BRIDGES [facility] Start: 02-12-2018 End: 02-14-2018 Patient encounter procedure ANNA CYRUS [facility] Start: 11-27-2016 End: 11-27-2016 Office outpatient visit 10 minutes Kamilla [facility] Start: 02-14-2016 End: 02-14-2016 Office outpatient visit 15 minutes Kamilla Alberto [facility] Start: 07-12-2015 End: 07-12-2015 Office outpatient new 10 minutes Kamilla [facility] Start: 06-11-2015 End: 06-11-2015 Refill Request Kamilla Wagner [employer] [facility] [employer] [facility] Start: 05-31-2015 End: 05-31-2015 Periodic preventive med est patient 40-64yrs Kamilla [facility] Start: 04-03-2015 End: 04-03-2015 Office outpatient visit 15 minutes Kamilla [facility] Start: 03-08-2015 End: 03-08-2015 Office outpatient visit 40 minutes Kamilla [facility] Start: 10-30-2014 End: 10-30-2014 Refill Request Kamilla Wagner [facility] Start: 10-29-2014 End: 10-30-2014 Office outpatient visit 10 minutes Kamilla [facility] Start: 06-13-2014 End: 06-13-2014 Office outpatient visit 15 minutes Kamilla Alberto [facility] Start: 01-14-2014 End: 01-14-2014 Phone Encounter Kamilla Alberto [facility] Start: 01-06-2014 End: 01-06-2014 Phone Encounter Kamilla Alberto [facility] Start: 01-01-2012 End: 01-01-2012 Patient encounter procedure Kamilla Alberto [facility] Start: 05-22-2011 End: 05-22-2011 Patient encounter procedure Kamilla Alberto [facility] Start: 01-06-2011 End: 01-06-2011 Phone Encounter Kamilla Alberto [facility] Start: 12-18-2010 End: 12-18-2010 Erroneous Entry Kamilla Remy [facility] Start: 12-17-2010 End: 12-17-2010 Office outpatient visit 25 minutes Kamilla Alberto [facility] Start: 12-02-2010 End: 12-02-2010 Office outpatient visit 15 minutes Kamilla Alberto [facility] Start: 11-27-2010 End: 11-27-2010 Office outpatient visit 15 minutes Kamilla Alberto [facility] Start: 02-04-2010 End: 02-05-2010 Nursing evaluation of patient and report Kamilla Alberto [facility] Start: 01-24-2010 End: 01-24-2010 Patient encounter procedure Kamilla Alberto [facility] Start: 12-20-2009 End: 12-20-2009 Patient encounter procedure Kamilla Alberto [facility] Start: 08-06-2009 End: 08-06-2009 Office outpatient visit 25 minutes Kamilla Alberto [facility] Start: 07-23-2009 End: 07-23-2009 Office outpatient visit 15 minutes Kamilla Alberto [facility] Start: 07-03-2009 End: 07-03-2009 Office outpatient visit 25 minutes Kamilla Alberto [facility] Start: 03-12-2009 End: 03-12-2009 Patient encounter procedure Kamilla Alberto [facility] Start: 03-12-2009 End: 03-12-2009 Patient encounter status Kamilla Alberto DO Work Phone: [facility] Start: 03-04-2009 End: 03-04-2009 Patient encounter procedure Kamilla Alberto [facility] Start: 02-27-2009 End: 02-27-2009 Office outpatient new 30 minutes Kamilla Alberto [facility] End: 03-08-2015 Physical examination JERAD Smith BHARATHI [facility]; [facility] Work Phone: Comment on above: testicular handout trang elan. follow up prn. Procedures Date Procedure Procedure Detail Performing Clinician Start: 05-07-2022 End: 05-07-2022 H AND P Exam - Hospitalist Procedure Note: See Note; NOTES: [facility] Medical Records Department [address] [place] [address] H P Exam - Hospitalist 05/07/22 0345 MR#: [id number] Acct: [id number] Name: MGEAN OSMAN Rep #: [id number] : 1975 46 From: Royce Beebe MD PCP: Dr. Kamilla Alberto, DO Status:REG ER Location: ED HPI - General General Date of Admission: 05/07/22 Date of Service: 05/07/22 Chief Complaint: Chills HPI Narrative MEGAN OSMAN, is a 46 M with a significant history of morbid obesity who presents to the emergency department with chills. While in an in person meeting few hours before presentation patient felt chilled. Associated with his symptom is mild cough and shortness of breath. Shortness of breath is worsened with mild exertion. He is fatigue. He denies anorexia. He denies any urinary symptoms. PFSH Medical History no medical history Allergy/AdvReac Type Severity Reaction Status Date / Time No Known Allergies Allergy Verified 05/06/22 22:09 other (Denies knowledge of paternal or maternal medical history) no surgical history Social History Smoking Status: Never smoker ROS ROS Narrative Pertinent positives and pertinent negatives as noted in HPI. All other systems were reviewed and are negative Vital Signs Vital Signs Vital Signs: 05/06/22 22:09 05/06/22 22:11 05/06/22 23:16 Temperature 98.8 F Temperature Source Temporal Pulse Rate 150 H Respiratory Rate 28 H 28 H Respiratory Effort Respiratory Depth Respiratory Pattern Blood Pressure 169/103 H Blood Pressure Mean 125 Pulse Ox 97 94 Oxygen Delivery Method Room Air Room Air Room Air 05/06/22 23:18 05/07/22 00:43 01/05/23 00:00 Temperature 103.2 F H Temperature Source Oral Pulse Rate 138 H Respiratory Rate 24 H 32 H Respiratory Effort Short of Breath Respiratory Depth Normal Respiratory Pattern Tachypnea Blood Pressure 161/82 H Blood Pressure Mean 108 Pulse Ox 97 Oxygen Delivery Method Room Air Room Air 05/07/22 01:00 05/07/22 01:56 05/07/22 02:04 Temperature 101.1 F H 101.1 F H Temperature Source Oral Oral Pulse Rate 125 H 120 H 125 H Respiratory Rate 33 H 35 H 40 H Respiratory Effort Respiratory Depth Respiratory Pattern Blood Pressure 116/49 L 124/70 H 124/70 H Blood Pressure Mean 71 88 88 Pulse Ox 96 97 97 Oxygen Delivery Method Room Air Room Air Room Air 05/07/22 02:56 05/07/22 03:00 Temperature 101.5 F H 101.6 F H Temperature Source Oral Oral Pulse Rate 126 H 125 H Respiratory Rate 30 H 33 H Respiratory Effort Respiratory Depth Respiratory Pattern Blood Pressure 113/41 L 106/94 H Blood Pressure Mean 65 98 Pulse Ox 96 36 Oxygen Delivery Method Room Air Room Air Weight Weight: 167.376 kg Body Mass Index (BMI) 46.1 Physical Exam Narrative Physical exam: General: Well-nourished, well-developed. Head: Normocephalic, atraumatic, no tenderness Eyes: Vision is grossly intact. EOMI ENT, no trauma, moist mucous membranes, no rhinorrhea Neck: Nontender, No thyromegaly. CVS: Tachycardic. S1-S2 present. No murmur, gallop or rub. Respiratory : Tachypnea; clear to auscultation bilaterally, chest wall nontender, no wheezing Abdomen: Soft, nontender, nondistended, normal bowel sounds, no masses : Deferred Back: Nontender, no CVA tenderness, no midline spinal tenderness, deformities, step-offs Extremities: Nontender full range of motion, no trauma Skin: Normal color, no trauma, abrasions Neuro: Alert, oriented, cranial nerves II through XII grossly intact. Psychiatry: Normal mood. Normal affect. Not depressed. Not anxious. Results Lab / Micro Data Result Diagrams: 05/07/22 00:05 05/07/22 00:05 Labs: Laboratory Results - last 24 hr 05/07/22 00:05: WBC 20.9 H, RBC 5.91, Hgb 16.1, Hct 48.8, MCV 82.6, MCH 27.2, MCHC 33.0, RDW Std Deviation 39.2, RDW Coeff of Daniel 13.2, Plt Count 64 L, MPV 12.5 H, Immature Gran % (Auto) 0.600, Neut % (Auto) 90.9 H, Lymph % (Auto) 4.0 L, [place] % (Auto) 4.1, Eos % (Auto) 0.1, Baso % (Auto) 0.3, Absolute Neuts (auto) 19.1 H, Absolute Lymphs (auto) 0.83, Nucleated RBC % 0, Differential Comment SCANNED, Platelet Estimate MOD INC, Plt Morphology Comment LARGE 05/07/22 00:05: Sodium 136, Potassium 4.5, Chloride 103, Carbon Dioxide 26.0, Anion Gap 7, BUN 17, Creatinine 1.12, Estim Creat Clear Calc 96.40, Est GFR (MDRD) Af Amer 90, Est GFR (MDRD) Non-Af 74, BUN/Creatinine Ratio 15.2, Glucose 136 H, Calcium 9.4, Magnesium 2.0 05/07/22 01:22: Lactic Acid 2.1 H* 05/07/22 01:28: Urine Color Yellow, Urine Clarity Clear, Urine pH 7.0, Ur Specific [place] 1.010, Urine Protein 30 H, Urine Glucose (UA) Normal, Urine Ketones Negative, Urine Occult Blood Negative, Urine Nitrite Positive H, Urine Bilirubin Negative, Urine Urobilinogen Normal, Ur Leukocyte Esterase 500 H, Urine RBC 0 SEEN, Urine WBC 0-5 SEEN, Ur Squamous Epith Cells 0-5 SEEN, Urine Bacteria 1+, Urine Mucus 0 SEEN Micro: Microbiology 05/06/22 23:15 Nasal Secretion SARS-CoV-2 FLU Antigen (Rapid) - Final Radiology Impression Chest X-Ray 05/07/22 00:03 IMPRESSION: Normal x-ray examination of the chest. Electronically Signed: Jordi Denton MD at 0:33 EST , Chest CTA 05/07/22 00:52 IMPRESSION: Nonspecific nodule in the right thyroid lobe measures 1 cm. There is no demonstrated pulmonary embolism or arterial dissection. Electronically Signed: Jordi Denton MD at 2:11 EST Reading Location ID and State: [facility] / MD Tel , Service support , Assessment Plan Assessment/Plan (1) Abnormal urinalysis: (2) Viral syndrome: (3) SIRS (systemic inflammatory response syndrome): PLAN: Plan Viral syndrome Rapid COVID and rapid influenza was negative. We will check comprehensive respiratory pathogen panel SIRS/abnormal Patient has tachycardia, tachypnea; and fever with T-max of 103.2 Fahrenheit. White count of 20,900. Urinalysis is abnormal. However there is no pyuria. Morbid patient has no urinary symptoms. Sepsis ruled out. Blood cultures obtained in the emergency department Chest x-ray was visualized and independent interpreted and I agree with radiologist interpretation of normal x-ray of the chest. Rocephin started at the emergency department and continued cautiously. Thyroid nodule CTA with thyroid nodule. Check TSH and ultrasound of thyroid Morbid Obesity: BMI: 46.1 kg/m???. Complicates care. Lifestyle modification recommended. Charges/Coding Visit Charges Inpatient E M: 08151 Init Hosp L3 05/07/22 0600 <Electronically signed by Royce Beebe MD> Cosigner Signature (if applicable): CC: Dr. Royce Beebe MD; Dr. Kamilla Alberto DO Signed Kamilla Albetro DO Work Phone: Start: 05-07-2022 End: 05-07-2022 Emergency Department Summary Procedure Note: See Note; NOTES: [facility] Medical Records Department [address] [place] [address] Emergency Department Summary 05/07/22 MR#: [id number] Acct: [id number] Name: MEGAN OSMAN Rep #: [id number] : 1975 46 From: Parveen Dos Santos DO PCP: Dr. Kamilla Alberto DO Status:REG ER Location: ED HPI History of Present Illness Chief Complaint: Shortness of Breath Narrative Narrative: Patient is a 46-year-old male who reports no significant past medical history. He states that he was in a meeting today when he began to feel chilled. He states with this he had mild cough and sensation of shortness of breath. He states that secondary to the symptoms he comes in for evaluation. He denies any known sick contacts and he denies any chest pain or abdominal pain nausea vomiting or diarrhea PFSH PFSH Medical History no medical history no medical history Allergy/AdvReac Type Severity Reaction Status Date / Time No Known Allergies Allergy Verified 05/06/22 22:09 Social History Smoking Status: Never smoker ROS ROS ED Constitutional Constitutional ED: Reports chills and fever(s) ENT ENT ED: Denies rhinorrhea or sore throat Cardiovascular Cardiovascular: Reports racing heartbeat; Denies chest pain Respiratory/Chest Respiratory/Chest: Reports cough and dyspnea Gastrointestinal Gastrointestinal: Denies abdominal pain, diarrhea, nausea or vomiting Genitourinary Genitourinary ED: Denies dysuria or hematuria Musculoskeletal Musculoskeletal: Reports myalgias Integumentary Denies rash Neurologic Neurologic: Denies headache(s) Hematologic/Lymphatic Hematologic/Lymphatic: Denies easy bleeding or easy bruising EXAM Physical Exam Const Vital Signs: 05/06/22 22:09 05/06/22 22:11 05/06/22 23:16 Temperature 98.8 F Temperature Source Temporal Pulse Rate 150 H Respiratory Rate 28 H 28 H Respiratory Effort Respiratory Depth Respiratory Pattern Blood Pressure 169/103 H Blood Pressure Mean 125 Pulse Ox 97 94 Oxygen Delivery Method Room Air Room Air Room Air 05/06/22 23:18 05/07/22 00:43 05/07/22 00:00 Temperature 103.2 F H Temperature Source Oral Pulse Rate 138 H Respiratory Rate 24 H 32 H Respiratory Effort Short of Breath Respiratory Depth Normal Respiratory Pattern Tachypnea Blood Pressure 161/82 H Blood Pressure Mean 108 Pulse Ox 97 Oxygen Delivery Method Room Air Room Air 05/07/22 01:00 05/07/22 01:56 05/07/22 02:04 Temperature 101.1 F H 101.1 F H Temperature Source Oral Oral Pulse Rate 125 H 120 H 125 H Respiratory Rate 33 H 35 H 40 H Respiratory Effort Respiratory Depth Respiratory Pattern Blood Pressure 116/49 L 124/70 H 124/70 H Blood Pressure Mean 71 88 88 Pulse Ox 96 97 97 Oxygen Delivery Method Room Air Room Air Room Air 05/07/22 02:56 05/07/22 03:00 Temperature 101.5 F H 101.6 F H Temperature Source Oral Oral Pulse Rate 126 H 125 H Respiratory Rate 30 H 33 H Respiratory Effort Respiratory Depth Respiratory Pattern Blood Pressure 113/41 L 106/94 H Blood Pressure Mean 65 98 Pulse Ox 96 36 Oxygen Delivery Method Room Air Room Air Positive well nourished, well developed and obese General Appearance ED: well developed Nutritional Appearance: obese HEENT Reports moist mucous membranes Eyes PERRL and EOMs intact bilaterally Neck supple and no JVD Neck Narrative: Positive anterior cervical lymphadenopathy noted Chest Wall palpation of chest normal Resp clear to auscultation bilaterally Resp Narrative: Patient has mild tachypnea but otherwise no nasal flaring retractions or accessory muscle use and breath sounds are overall clear to auscultation Cardio regular rhythm Rate: tachycardic and other Other Details: Radial pulses are plus 2 out of 4 bilaterally are equal and symmetric GI normal to inspection, nondistended, normoactive bowel sounds, non-tender, non-distended and no masses GI Narrative: No voluntary guarding or rigidity no pulsatile mass Auscultation: normoactive bowel sounds Palpation: soft Extremity normal to inspection Extremity Narrative: No asymmetric edema no pitting edema negative Homans' sign bilaterally Neuro oriented x3 and CN's II-XII intact bilaterally Sensorium / Orientation: alert Psych mental status grossly normal Skin no rashes or lesions noted MDM MDM MDM Narrative Medical decision making narrative: Patient presented to the ER awake and alert but was febrile with a temperature up to 103 and tachycardic consistent with this. His constellation of symptoms is most likely viral in nature and therefore COVID and influenza swab were obtained. However because of the high fever and tachycardia I did elect to perform basic laboratory and imaging studies. Patient has leukocytosis at approximately 21 with thrombocytopenia. I do not have any old lab values to compare to but patient reports no past medical history. His lactic acid is also slightly elevated 2.1. Because of the tachycardia and high white count with negative viral swabs and chest x-ray elected to perform a CTA to make sure there is no missed pneumonia. CTA of the chest was negative. As he has no abdominal pain and no meningeal signs I do not feel the need for a lumbar puncture or CT of the abdomen and pelvis. Patient's urine sample did show changes consistent with infection and secondary to this it was sent for culture and he was started on Rocephin. At this time as he is qualifying for sepsis based on his fever white count and tachycardia I do not feel would be appropriate to discharge him home and therefore he will be kept in the hospital while blood cultures and urine culture are pending and he can receive IV antibiotics and fluids as needed. The plan of care was discussed with the patient and family and they are agreeable to this. Internal medicine was contacted as well and they agreed except the patient at this time Lab Data Attestation: I reviewed the patient's lab results. Labs: Laboratory Results - last 24 hr 05/07/22 05/07/22 05/07/22 00:05 00:05 01:22 WBC 20.9 H RBC 5.91 Hgb 16.1 Hct 48.8 MCV 82.6 MCH 27.2 MCHC 33.0 RDW Std Deviation 39.2 RDW Coeff of Daniel 13.2 Plt Count 64 L MPV 12.5 H Immature Gran % (Auto) 0.600 Neut % (Auto) 90.9 H Lymph % (Auto) 4.0 L [place] % (Auto) 4.1 Eos % (Auto) 0.1 Baso % (Auto) 0.3 Absolute Neuts (auto) 19.1 H Absolute Lymphs (auto) 0.83 Nucleated RBC % 0 Differential Comment SCANNED Platelet Estimate MOD INC Plt Morphology Comment LARGE Sodium 136 Potassium 4.5 Chloride 103 Carbon Dioxide 26.0 Anion Gap 7 BUN 17 Creatinine 1.12 Estim Creat Clear Calc 96.40 Est GFR (MDRD) Af Amer 90 Est GFR (MDRD) Non-Af 74 BUN/Creatinine Ratio 15.2 Glucose 136 H Lactic Acid 2.1 H* Calcium 9.4 Magnesium 2.0 Urine Color Urine Clarity Urine pH Ur Specific [place] Urine Protein Urine Glucose (UA) Urine Ketones Urine Occult Blood Urine Nitrite Urine Bilirubin Urine Urobilinogen Ur Leukocyte Esterase Urine RBC Urine WBC Ur Squamous Epith Cells Urine Bacteria Urine Mucus 05/07/22 01:28 WBC RBC Hgb Hct MCV MCH MCHC RDW Std Deviation RDW Coeff of Daniel Plt Count MPV Immature Gran % (Auto) Neut % (Auto) Lymph % (Auto) [place] % (Auto) Eos % (Auto) Baso % (Auto) Absolute Neuts (auto) Absolute Lymphs (auto) Nucleated RBC % Differential Comment Platelet Estimate Plt Morphology Comment Sodium Potassium Chloride Carbon Dioxide Anion Gap BUN Creatinine Estim Creat Clear Calc Est GFR (MDRD) Af Amer Est GFR (MDRD) Non-Af BUN/Creatinine Ratio Glucose Lactic Acid Calcium Magnesium Urine Color Yellow Urine Clarity Clear Urine pH 7.0 Ur Specific [place] 1.010 Urine Protein 30 H Urine Glucose (UA) Normal Urine Ketones Negative Urine Occult Blood Negative Urine Nitrite Positive H Urine Bilirubin Negative Urine Urobilinogen Normal Ur Leukocyte Esterase 500 H Urine RBC 0 SEEN Urine WBC 0-5 SEEN Ur Squamous Epith Cells 0-5 SEEN Urine Bacteria 1+ Urine Mucus 0 SEEN Radiography Diagnostic Testing: Clinical Impression(s) from Imaging Studies Chest X-Ray 05/07/22 00:03 IMPRESSION: Normal x-ray examination of the chest. Electronically Signed: Jordi Denton MD at 0:33 EST , Chest CTA 05/07/22 00:52 IMPRESSION: Nonspecific nodule in the right thyroid lobe measures 1 cm. There is no demonstrated pulmonary embolism or arterial dissection. Electronically Signed: Jordi Denton MD at 2:11 EST , Chest x-ray as interpreted by the emergency medicine physician reveals no acute infiltrate pneumothorax or pleural effusion Discharge Plan Triage Chief Complaint: Shortness of Breath ED Provider: Parveen Dos Santos Dx/Rx/DC Orders Clinical Impression: Urinary tract infection, Septicemia, Leukocytosis, Thrombocytopenia, Pyrexia Primary Care Provider: Kamilla Alberto Referrals: Kamilla Alberto DO [Primary Care Provider] - Disposition Disposition: Acute Care Hospital [facility] What to do if you have Problems For any increased pain, shortness of breath, bleeding, nausea or vomiting, chest pain, or any unexpected problems, contact your Primary Care Provider. Call [facility] ([phone]) or report to the closest Emergency Room. Call 911 if necessary. 05/07/22 8361 <Electronically signed by Parveen Dos Santos DO> Cosigner Signature (if applicable): CC: Dr. Kamilla Alberto DO Signed Kamilla Alberto DO Work Phone: Start: 05-07-2022 CT angiography of chest with contrast Dr. Kamilla Alberto Work Phone: Start: 05-07-2022 End: 05-07-2022 CTA Chest W/WO Contrast Procedure Note: See Note; NOTES: [facility] Imaging Services [address] [place] [address] CTA Chest W/WO Contrast MR#: [id number] Acct: [id number] Name: MEGAN OSMAN Rep #: [id number] : 1975 M 46 From: Jordi Jane PCP: Dr. Kamilla Alberto, DO Status: REG ER Study: CTA Chest W/WO Contrast Date of Exam: 05/07/22 Exam# [id number] Ordering Dr: Parveen Dos Santos DO STUDY: CTA CHEST REASON FOR EXAM: Male, 46 years old. cough RADIATION DOSAGE (If Supplied By Facility): CTDIvol = ( 36.66 ) mGy, DLP = ( 795.00 ) mGycm TECHNIQUE: The examination was performed with the intravenous administration of IV 100mL Isovue-370. Post-processing of the angiographic images was performed, with multiplanar reformation and 3D reconstruction. Individualized dose optimization techniques were used for this CT. COMPARISON: None. FINDINGS: Nonspecific nodule in the right thyroid lobe measures 1 cm. Normal enhancement of the main pulmonary artery and right and left pulmonary arteries. There is limited enhancement of the bilateral peripheral pulmonary arteries. There is no demonstrated pulmonary embolism. Normal thoracic aorta and visualized great vessels. There is no demonstrated aortic dissection. Normal heart and pericardium. Normal mediastinum. Normal hilar regions. Normal visualized trachea and bronchi. The lungs are well expanded. Normal pulmonary parenchyma. Normal pleura. Normal chest wall structures. Normal osseous structures. Normal visualized upper abdomen. CT/CTA Chest W/WO Contrast IMPRESSION: Nonspecific nodule in the right thyroid lobe measures 1 cm. There is no demonstrated pulmonary embolism or arterial dissection. Electronically Signed: Jordi Denton MD at 2:11 EST Reading Location ID and State: [facility] / MD Tel , Service support , CC: Dr. Kamilla Alberto DO; Parveen Dos Santos DO Inventory Clerk: Signed Kamilla Alberto DO Work Phone: Start: 05-07-2022 End: 05-07-2022 Chest PA and Lateral Procedure Note: See Note; NOTES: [facility] Imaging Services [address] [place] [address] Chest PA and Lateral MR#: [id number] Acct: [id number] Name: MEGAN OSMAN Rep #: [id number] : 1975 M 46 From: Jordi Jane PCP: Dr. Kamilla Alberto DO Status: PRE ER Study: Chest PA and Lateral Date of Exam: 05/07/22 Exam# [id number] Ordering Dr: Parveen Dos Santos DO STUDY: X-RAY CHEST REASON FOR EXAM: Male, 46 years old. cough TECHNIQUE: Single AP portable view of the chest. COMPARISON: None. FINDINGS: The lungs are clear and expanded. There is no demonstrated pleural abnormality. Normal size heart. Normal mediastinum and aleena. Normal visualized pulmonary arteries. Normal visualized aortic arch and descending thoracic aorta. Normal visualized thoracic spine. Normal visualized ribs, clavicles, and shoulders. There is no demonstrated abnormality of the visualized soft tissue structures of the upper abdomen. RAD/Chest PA and Lateral IMPRESSION: Normal x-ray examination of the chest. Electronically Signed: Jordi Denton MD at 0:33 EST Reading Location ID and State: [facility] / MD Tel , Service support , CC: Dr. Kamilla Alberto DO; Parveen Dos Santos DO Inventory Clerk: Signed Kamilla Alberto DO Work Phone: Start: 05-07-2022 Plain chest X-ray Dr. Kamilla Alberto Work Phone: Start: 11-27-2016 End: 11-27-2016 Venous Duplex Lower Extremity Comments: See Note; NOTES: [facility] Cardiovascular Services [address] [place] [address] Venous Duplex US, Unilateral 11/27/16 1058 MR#: [id number] Acct: [id number] Name: MEGAN OSMAN Rep #: [id number] : 1975 41 From: Eddie Santos MD Attending Dr: Kamilla Alberto DO Status: REG CLI Ordering Dr: Kamilla Alberto DO Date: 11/27/16 Location: [facility] Sex: M C Admitted: Reason For Study: LLE EDEMA RIGHT LEFT CFV is compressible, spontaneous, phasic, GSV is normal. competent and demonstrates normal CFV is compressible, spontaneous, phasic , augmentation. competent, and demonstrates normal Procedure augmentation. Exam performed in department. FV is compressible, spontaneous, phasic, The exam was diagnostic. competent and demonstrates normal A preliminary report was called and/or faxed augmentation. to Dr. Alberto @ [phone] @ 11:30 am. POP V is compressible, spontaneous, phasic, competent and demonstrates normal augmentation. T/P Trunk is compressible. PTV is compressible. LT PerV is compressible. Interpretation Summary Deep veins of the left lower extremity are patent and compressible segmentally. There is no evidence of left lower extremity deep vein thrombosis. Valvular competence appears intact within the proximal deep venous system on the left . The left greater saphenous vein appears patent and compressible segmentally. Ordering Physician: Kamilla Alberto Performed By: Chetna Monroe RDCS, RVT 11/27/161955 Date Eddie Santos MD CC: Kamilla Alberto DO Date Dictated: 11/27/16 1058 Date Transcribed: 11/27/161955 Inventory Clerk: Signed Kamilla Alberto Work Phone: Plan of Treatment Date Care Activity Detail Author Start: 05-08-2022 Thyroid stimulating hormone measurement [facility] Work Phone: Start: 05-07-2022 US scan of thyroid Thyroid [facility] Work Phone: Start: 05-07-2022 [facility] Work Phone: Start: 05-07-2022 Verification routine [facility] Work Phone: Start: 05-07-2022 Admission procedure [facility] Work Phone: Start: 05-07-2022 [facility] Work Phone: Start: 05-07-2022 End: 05-07-2022 Blood culture [facility] Work Phone: Start: 05-06-2022 [facility] Work Phone: Start: 08-16-2019 Procedure Education Eprescribe d prescriptions (G8553) [facility]; [facility] Work Phone: Start: 08-16-2019 Provider Instruction s for Treatment Knee Injection with Drainage- left knee [facility] Work Phone: Start: 11-27-2016 Procedure Education Eprescribe d prescriptions (G8553) [facility] Work Phone: Start: 02-14-2016 Patient Education Sore Throat *: acute pharyngitis [facility] Work Phone: Start: 02-14-2016 Procedure Education Eprescribe d prescriptions (G8553) [facility] Work Phone: Start: 10-29-2014 Procedure Education Eprescribe d prescriptions (G8553) [facility] Work Phone: Start: 06-13-2014 Patient Education Sore throat: diagnosis and treatment [facility] Work Phone: Start: 06-13-2014 Provider Instruction s for Treatment *URI Treatment [facility] Work Phone: Start: 06-13-2014 Virus centrifuge enhncd id imfluor stain ea [facility] Work Phone: Start: 05-22-2011 Provider Instruction s for Treatment [facility] Work Phone: Start: 12-17-2010 Provider Instruction s for Treatment Follow up if no improvement or if symptoms worsen [facility] Work Phone: Start: 12-17-2010 Cul bact xcpt urine blood/stool aerobic isol THALIA CULTURE-OTHER (70302) [facility] Work Phone: Comment on above: from rt olecranon Start: 12-02-2010 Cul bact xcpt urine blood/stool aerobic isol THALIA CULTURE-OTHER (84104) [facility] Work Phone: Comment on above: right elbow Start: 11-27-2010 Provider Instruction s for Treatment Follow up Wednesday [facility] Work Phone: Start: 01-24-2010 Lipid panel LIPID PANEL (03116) [facility] Work Phone: Start: 08-06-2009 Provider Instruction s for Treatment [facility] Work Phone: Start: 07-23-2009 Provider Instruction s for Treatment FOLLOW UP IN 6 MONTHS [facility] Work Phone: Start: 07-23-2009 Lipid panel Lipid Panel (72975) [facility] Work Phone: Comment on above: Jan 2010 Start: 07-03-2009 Fibrin dgradj produc ts d-dimer quantitative FIBRIN DEGRAD D-DIM CLARISSA (81273) [facility] Work Phone: Start: 07-03-2009 Urine albumin quantitative MICROALBUMIN: CREATININE RATIO (91338) AND (63114) [facility] Work Phone: Start: 07-03-2009 Creatinine other source CREATININE, URINE (85212) [facility] Work Phone: Start: 07-03-2009 Creatine kinase isoenzymes CPK TOTAL & ISOENZYMES (55646) [facility] Work Phone: Start: 03-12-2009 Assay of thyroid stimulating hormone tsh TSH (71591) [facility] Work Phone: Start: 03-12-2009 TSH Qn TSH (55286) [facility] Work Phone: Start: 03-12-2009 Glucose [Mass/Vol] Glucose (49183) [facility] Work Phone: Start: 03-12-2009 Glucose quantitative blood xcpt reagent strip Glucose (48426) [facility]; [facility] Work Phone: Start: 03-12-2009 Lipid panel Lipid Panel (38543) [facility] Work Phone: Bacteria identified in Blood by Culture Blood Culture [facility] Work Phone: Bacteria identified in Urine by Culture Urine Culture [facility] Work Phone: Blood culture [facility] Work Phone: Patient referral [facility] Work Phone: Respiratory Panel (PCR) Respiratory Panel (PCR) [facility] Work Phone: Respiratory pathogen s DNA and RNA 12b panel - Unspecified specimen by NAGI with probe detection [facility] Work Phone: Thyroid stimulating hormone measurement [facility] Work Phone: [facility] Work Phone: [facility] Work Phone[facility] Work Phone: [facility] Work Phone: [facility] Work Phone: [facility] Work Phone: [facility] Work Phone: [facility] Work Phone: Payers Date Payer Category Payer Self-pay [id number] Unknown [id number] 2004 Unknown [employer] [id number] Unknown [employer] Unknown [id number] Social History Date Type Detail Facility Alcohol Use Alcohol Use [facility] Work Phone: Comment on above: Occasional alcohol u se 2 cups daily coffee 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, 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[employer], [employer] Tobacco use: Tobacco use: [facility] Work Phone: Tobacco use: Tobacco use: [facility] Work Phone: Start: 05-07-2022 [facility] Work Phone: Start: 1975 Sex Assigned At Male [facility] Work Phone: Evaluation note Note Date & Type Note Facility Evaluation note Diagnosis Onset Date Abnormal urinalysis acute Leukocytosis acute Pyrexia acute Septicemia acute SIRS (systemic inflammatory response syndrome) acute Thrombocytopenia acute Urinary tract infection acut e Viral syndrome acute [facility] Work Phone: Instructions Note Date & Type Note Facility Instructions Name How to access health information online Indication:BMI 40.0-44.9, adult Start: 0 Instruction Type:Patient Education How to access health information online - Detail Indication:BMI 40.0-44.9, adult Start: 0 Instruction Type:Patient Education Patient Instructions Indication:BMI 40.0-44.9, adult Start: 0 Instruction Type:Provider Instructions for Treatment Patient Instructions Indication:Contact dermatitis Start: 9 Instruction Type:Provider Instructions for Treatment How to access health information online Indication:Current nonsmoker (Renamed from Current non-smoker) Start: 7 Instruction Type:Patient Education How to access health information online - Detail Indication:Current nonsmoker (Renamed from Current non-smoker) Start: Instruction Type:Patient Education Patient Instructions Indication:Current nonsmoker (Renamed from Current non-smoker) Start: Instruction Type:Provider Instructions for Treatment How to access health information online Indication:ACUTE PHARYNGITIS (462.) Start: Instruction Type:Patient Education How to access health information online - Detail Indication:ACUTE PHARYNGITIS (462.) Start: Instruction Type:Patient Education Patient Instructions Indication:ACUTE PHARYNGITIS (462.) Start: Instruction Type:Provider Instructions for Treatment How to access health information online Indication:Obesity Start: Instruction Type:Patient Education How to access health information online - Detail Indication:Obesity Start: Instruction Type:Patient Education Patient Instructions Indication:Obesity Start: Instruction Type:Provider Instructions for Treatment How to access health information online Indication:Obesity Start: Instruction Type:Patient Education How to access health information online - Detail Indication:Obesity Start: Instruction Type:Patient Education Patient Instructions Indication:Obesity Start: Instruction Type:Provider Instructions for Treatment How to access health information online Indication:Obesity Start:03-Apr-2015 Instruction Type:Patient Education How to access health information online - Detail Indication:Obesity Start:03-Apr-2015 Instruction Type:Patient Education Patient Instructions Indication:Obesity Start:03-Apr-2015 Instruction Type:Provider Instructions for Treatment How to access health information online Indication:CONTACT DERMATITIS D/T POISON RAFA, Start: 5 Instruction Type:Patient Education How to access health information online - Detail Indication:CONTACT DERMATITIS D/T POISON RAFA, Start: 5 Instruction Type:Patient Education Patient Instructions Indication:CONTACT DERMATITIS D/T POISON RAFA, Start: 5 Instruction Type:Provider Instructions for Treatment [facility]; [facility] Work Phone: Instructions Note Date & Type Note Facility Instructions Name How to access health information online Indication:BMI 40.0-44.9, adult Start: 0 Instruction Type:Patient Education How to access health information online - Detail Indication:BMI 40.0-44.9, adult Start: 0 Instruction Type:Patient Education Patient Instructions Indication:BMI 40.0-44.9, adult Start: 0 Instruction Type:Provider Instructions for Treatment Patient Instructions Indication:Contact dermatitis Start: 9 Instruction Type:Provider Instructions for Treatment How to access health information online Indication:Current nonsmoker (Renamed from Current non-smoker) Start: 7 Instruction Type:Patient Education How to access health information online - Detail Indication:Current nonsmoker (Renamed from Current non-smoker) Start: 7 Instruction Type:Patient Education Patient Instructions Indication:Current nonsmoker (Renamed from Current non-smoker) Start: 7 Instruction Type:Provider Instructions for Treatment How to access health information online Indication:ACUTE PHARYNGITIS (462.) Start: 6 Instruction Type:Patient Education How to access health information online - Detail Indication:ACUTE PHARYNGITIS (462.) Start: 6 Instruction Type:Patient Education Patient Instructions Indication:ACUTE PHARYNGITIS (462.) Start: 6 Instruction Type:Provider Instructions for Treatment How to access health information online Indication:Obesity Start: 6 Instruction Type:Patient Education How to access health information online - Detail Indication:Obesity Start: 6 Instruction Type:Patient Education Patient Instructions Indication:Obesity Start: 6 Instruction Type:Provider Instructions for Treatment How to access health information online Indication:Obesity Start: 6 Instruction Type:Patient Education How to access health information online - Detail Indication:Obesity Start: 6 Instruction Type:Patient Education Patient Instructions Indication:Obesity Start: 6 Instruction Type:Provider Instructions for Treatment How to access health information online Indication:Obesity Start:03-Apr-2015 Instruction Type:Patient Education How to access health information online - Detail Indication:Obesity Start:03-Apr-2015 Instruction Type:Patient Education Patient Instructions Indication:Obesity Start:03-Apr-2015 Instruction Type:Provider Instructions for Treatment How to access health information online Indication:CONTACT DERMATITIS D/T POISON RAFA, Start: 5 Instruction Type:Patient Education How to access health information online - Detail Indication:CONTACT DERMATITIS D/T POISON RAFA, Start: 5 Instruction Type:Patient Education Patient Instructions Indication:CONTACT DERMATITIS D/T POISON RAFA, Start: 5 Instruction Type:Provider Instructions for Treatment [facility]; [facility] Work Phone: Summary Purpose Family History No Family History Records FoundUnknown Family Member Name Dates Details Father Comments:? HTN PSA elevated Status:Active Mother Comments:Hyerpactive Thyroid HTN Status:Active Sister 1 Comments:healthy Status:Active Sister 2 Comments:healthy Status:Active Sister 3 Comments:healthy Status:Active Unknown Family Member Name Dates Details Father Comments:? HTN PSA elevated Status:Active Mother Comments:Hyerpactive Thyroid HTN Status:Active Sister 1 Comments:healthy Status:Active Sister 2 Comments:healthy Status:Active Sister 3 Comments:healthy Status:Active Unknown Family Member Name Dates Details Father Comments:? HTN PSA elevated Status:Active Mother Comments:Hyerpactive Thyroid HTN Status:Active Sister 1 Comments:healthy Status:Active Sister 2 Comments:healthy Status:Active Sister 3 Comments:healthy Status:Active Advance Directives No Advanced Directives Records Found Advance Directive Response Recorded Date/ Time Living Will No May 07 3 12:42am Power of Vending Machine Refiller No May 07 023 12:42am Instructions Name Dates Details Patient Instructions Indication:Contact dermatitis Start:21-Nov-2018 Instruction Type:Provider Instructions for Treatment How to access health informa tion online Indication:Current nonsmoker (Renamed from Current non-smoker) Start:27-Nov-2016 Instruction Type:Patient Education How to access health informa tion online - Detail Indication:Current nonsmoker (Renamed from Current non-smoker) Start:27-Nov-2016 Instruction Type:Patient Education Patient Instructions Indication:Current nonsmoker (Renamed from Current non-smoker) Start:27-Nov-2016 Instruction Type:Provider Instructions for Treatment How to access health informa tion online Indication:ACUTE PHARYNGITIS (462.) Start:14-Feb-2016 Instruction Type:Patient Education How to access health informa tion online - Detail Indication:ACUTE PHARYNGITIS (462.) Start:14-Feb-2016 Instruction Type:Patient Education Patient Instructions Indication:ACUTE PHARYNGITIS (462.) Start:14-Feb-2016 Instruction Type:Provider Instructions for Treatment How to access health informa tion online Indication:Obesity Start:12-Jul-2015 Instruction Type:Patient Education How to access health informa tion online - Detail Indication:Obesity Start:12-Jul-2015 Instruction Type:Patient Education Patient Instructions Indication:Obesity Start:12-Jul-2015 Instruction Type:Provider Instructions for Treatment How to access health informa tion online Indication:Obesity Start:31-May-2015 Instruction Type:Patient Education How to access health informa tion online - Detail Indication:Obesity Start:31-May-2015 Instruction Type:Patient Education Patient Instructions Indication:Obesity Start:31-May-2015 Instruction Type:Provider Instructions for Treatment How to access health informa tion online Indication:Obesity Start:03-Apr-2015 Instruction Type:Patient Education How to access health informa tion online - Detail Indication:Obesity Start:03-Apr-2015 Instruction Type:Patient Education Patient Instructions Indication:Obesity Start:03-Apr-2015 Instruction Type:Provider Instructions for Treatment How to access health informa tion online Indication:CONTACT DERMATITIS D/T POISON RAFA, Start:29-Oct-2014 Instruction Type:Patient Education How to access health informa tion online - Detail Indication:CONTACT DERMATITIS D/T POISON RAFA, Start:29-Oct-2014 Instruction Type:Patient Education Patient Instructions Indication:CONTACT DERMATITIS D/T POISON RAFA, Start:29-Oct-2014 Instruction Type:Provider Instructions for Treatment Chief Complaint and Reason for Visit Chief Complaint VIRAL ILLNESS Shortness of breath Reason for Visit Abnormal urinalysis Leukocytosis Pyrexia Septicemia SIRS (systemic inflammatory response syndrome) Thrombocytopenia Urinary tract infection Viral syndrome Additional Source Comments (unrecognized sect ion and content) No Status Records FoundNo Status Records Found INFORMATION SOURCE (unrecogn ized section and content) DATE CREATED AUTHOR 04/11/2018 [facility] DATE CREATED AUTHOR AUTHOR'Wilma LOVE 12/27/[address] [facility] Goals (unrecognized section and content) Goals may be documented in a n alternate section FOR RECORDS PERTAINING TO PATIENTS WHO ARE OR HAVE BEEN ENROLLED IN A CHEMICAL DEPENDENCY/SUBSTANCEABUSE PROGRAM, SOME INFORMATION MAY BE OMITTED. This clinical summary was aggregated from multiple sources. Caution should be exercised in using it in the provision of clinical care. This summary normalizes information from multiple sources, and as a consequence, information in this document may materially change the coding, format and clinical context of patient data. In addition, data may be omitted in some cases. CLINICAL DECISIONS SHOULD BE BASED ON THE PRIMARY CLINICAL RECORDS. [facility] [employer] [facility]. provides no warranty or guarantee of the accuracy or completeness of information in this document.
--- NOTE | 2024-12-28 07:08 | PCM.HP.STD ---
[facility] - General General Date of Admission: 12/28/24 Date of Service: 12/28/24 Chief Complaint: Screening colonoscopy HPI Narrative MEGAN CALDERON, is a 49 M who presents today for screening colonoscopy. He is about a colonoscopy in the past. He does not have any abdominal pain, cramping, chest pain or shortness of breath. [facility] Medical History Wears glasses Depression Alcohol use Shortness of breath on exertion Non-smoker CPAP (continuous positive airway pressure) dependence History of edema Hypertension Thyroid nodule Home Medications ?Medication ?Instructions ?Recorded ?Last Taken ?Type lisinopril 40 mg tablet 40 mg PO DAILY 12/27/24 Unknown History magnesium glycinate 400 mg PO DAILY 12/27/24 Unknown History Allergy/AdvReac Type Severity Reaction Status Date / Time No Known Allergies Allergy Verified 12/27/24 14:42 Family History Mother Hypertension Thyroid disorder Father Hypertension Sister Asthma Surgical History History of wisdom tooth extraction Social History Smoking Status: Never smoker alcohol intake: current ROS Constitutional Constitutional: Denies fatigue, fever(s), poor appetite, weight gain or weight loss Gastrointestinal Gastrointestinal: Denies belching, bloating, change in bowel habits, change in stool character, chewing difficulty, coffee ground emesis, constipation, cramping, diarrhea, dyspepsia, dysphagia, early satiety, excessive flatus, fecal incontinence, heartburn, hematemesis, hematochezia, hemorrhoids, loose stools, melena, nausea, odynophagia, rectal bleeding, tenesmus, vomiting or weight changes Physical Exam Const alert, oriented x3, no apparent distress and healthy appearing General Appearance: cooperative GI normal to inspection, nondistended, normoactive bowel sounds, soft to palpation, non-tender and non-distended Percussion: normal to percussion Rectal Exam: deferred Assessment & Plan Assessment/Plan (1) Encounter for screening colonoscopy: PLAN: He was explained alternatives, risk and benefits include not withstanding bleeding, infection, sepsis, perforation, need for charge and . He will have an ASA of 3.
[2024-12-28] MEDS: Lactated Ringers 1,000 ML 15 ML IV (07:35)
--- NOTE | 2024-12-28 07:41 | PRE.ANES_ITS ---
ASA Classification* ASA Classification ASA Classification: 3 Assessment & Plan Anesthesia* Anesthesia Assessment Anesthesia Assessment: Discussed sedation and/or anesthesia options, risks, benefits, and alternatives with patient/parents/legal guardian/POA. Questions invited. The patient/parents/legal guardian/POA seems to understand and agrees to proceed with anesthesia plan. Reviewed the physical assessment, medical history, allergy history and patient home medications list prior to surgery/procedure/anesthetic and documented any changes. Performed airway and anesthesia risk assessments. Anesthesia Type Anesthesia Type: MAC History Source History Obtained from:: Patient and Chart Anesthesia Focused Assessment* Temperature: 97.9 F Pulse Rate: 97 Blood Pressure: 144/89 Respiratory Rate: 18 Pulse Ox: 95 Oxygen Delivery Method: Room Air Airway Assessment Mouth opens: >3 cm Mallampati Score: II Teeth Condition: Intact Neck Range of motion (ROM): Full ROM Labs Anesthesia Preop lab: CBC WBC 20.9 K/mm3 (4.4-11.0) H 05/07/22 00:05 3 RBC 5.91 M/mm3 (4.6-6.2) 05/07/22 00:05 05/07/22 Hgb 16.1 g/dL (13.0-16.5) 05/07/22 00:05 05/07/22 Hct 48.8 % (40-54) 05/07/22 00:05 05/07/22 Plt Count 64 K/mm3 (150-450) L 05/07/22 00:05 05/07/22 CHEMISTRY Potassium 4.5 mmol/L (3.5-5.1) 05/07/22 00:05 05/07/22 Sodium 136 mmol/L (136-145) 05/07/22 00:05 05/07/22 Magnesium 2.0 mg/dL (1.6-2.6) 05/07/22 00:05 05/07/22 BUN 17 mg/dL (7-18) 05/07/22 00:05 05/07/22 Creatinine 1.12 mg/dL (0.70-1.30) 05/07/22 00:05 05/07/22 Glucose 136 mg/dL (74-106) H 05/07/22 00:05 05/07/22 TSH 2.200 uIU/mL (0.358-3.740) 12/27/23 14:58 12/02 10/24 COAG Pre-Assessment Diagnosis/Proposed Procedure Planned Operative Procedure(s): CSCOPE OA Anesthesia History 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 When Was Last Pacemaker Check QUESTION #4 FULL TEXT: You/Your Family Experience fever (hyperthermia) with Anesthesia Last Oral Intake Last Oral intake: Last Oral Intake NPO since 04:00 12/28/24 07:27 Meds taken in AM with sips of Yes 12/28/24 07:27 water? Meds patient instructed to take am of surgery PONV PONV - galvanometer assembler: PONV - galvanometer assembler Female No 12/27/24 14:36 HX of Motion Sickness Yes 12/27/24 14:36 HX of N/V After Surgery No 12/27/24 14:36 Non-Smoker Yes 12/27/24 14:36 Duration of Surgery greater No 12/27/24 14:36 than 60 minutes Number of Risk Factors 2 12/27/24 14:36 PONV Score Moderate Risk 12/27/24 14:36 Height & Weight Height & Weight: Anesthesia: Height & Weight Height 6 ft 4 in 12/28/24 07:27 Weight: 161.1 kg 12/28/24 07:27 Body Mass Index (BMI) 43.2 12/28/24 07:27 Respiratory Assessment Respiratory Assessment - galvanometer assembler: Respiratory Tract Infection Hx - galvanometer assembler Hx Respiratory Tract Infection No 12/27/24 14:36 STOP Sleep Apnea STOP Sleep Apnea - galvanometer assembler: STOP Sleep Apnea - galvanometer assembler Hx Hypertension Yes: CONTROLLED WITH MED 12/27/24 14:36 Hx Sleep Apnea Yes 12/27/24 14:36 CPAP Yes 12/27/24 14:36 BIPAP No 12/27/24 14:36 Do you snore loudly (louder than talking or can be heard Do you often feel tired/ fatigued/ sleepy during daytime? Has anyone observed you stop breathing during sleep? STOP Results Positive 12/27/24 14:36 QUESTION #5 FULL TEXT : Do you snore loudly (louder than talking or can be heard through closed doors)? Tobacco Use History Tobacco Use History - galvanometer assembler: Tobacco Use History - galvanometer assembler Tobacco Use Smoking Status Never smoker 12/27/24 14:36 Hx Tobacco Use No 12/27/24 14:36 Years Smoking Packs Smoked per Day Smoking Cessation Date was within the last 15 years Hx Smoking Cessation Date Hx Smoking Cessation Counseling Hematologic Medial History Hematologic Hx - galvanometer assembler: Hematologic Medical Hx - television engineer Hx of Blood Transfusion No 12/27/24 14:36 Hx of Transfusion in last 3 No 12/27/24 14:36 Months Date of Last Transfusion (if within last 3 months) Ever experience any problems No 12/27/24 14:36 with transfusion(s)? Specify any problems Hx of Preganancy in last 3 N/A 12/27/24 14:36 Months Nurse Filling Out Transfusion DSCHRIBER 12/27/24 14:36 & Questions: Date: 12/27/24 12/27/24 14:36 Time: 14:37 12/27/24 14:36 Patient unable to answer at this time (ie. confused, unrespo /Reproduction History /Reproductive History - galvanometer assembler: /Reproductive Hx- galvanometer assembler Hx Now No 12/27/24 14:36 Gestational Age (in weeks): EDC: Hx Hx Para Hx Section SAB No 12/27/24 14:36 Active Medications Active Medications: Current Medications Generic Name Dose Route Start Last Admin Trade Name Freq PRN Reason Stop Dose Admin Lactated Ringer's 1,000 mls @ 15 mls/hr 12/28/24 07:15 12/28/24 07:35 IV 15 mls/hr .Q48H PATRICIA Administration PFSH Medical History Wears glasses Depression Alcohol use Shortness of breath on exertion Non-smoker CPAP (continuous positive airway pressure) dependence History of edema Hypertension Thyroid nodule Home Medications ?Medication ?Instructions ?Recorded ?Last Taken ?Type lisinopril 40 mg tablet 40 mg PO DAILY 12/27/24 08/11/24 History magnesium glycinate 400 mg PO DAILY 12/27/24 History Allergy/AdvReac Type Severity Reaction Status Date / Time No Known Allergies Allergy Verified 12/28/24 07:27 Family History Mother Hypertension Thyroid disorder Father Hypertension Sister Asthma Surgical History History of wisdom tooth extraction Social History Smoking Status: Never smoker alcohol intake: current Review of Systems (Anesthesia) ROS Narrative System reviewed and no additional complaints, except as documented.
--- NOTE | 2024-12-28 08:37 | OP.COLON_ITS ---
Patient Name: Luis Osman Procedure Date: 12/28/2024 8:05 AM Date of : 1975 Age: 49 Procedure: Colonoscopy Indications: Screening for colorectal malignant neoplasm Providers: DO Jimmy Nunez MD: Jordana Carreon Medicines: Monitored Anesthesia Care Patient Profile: This is a 49 year old male. Refer to note in patient chart for documentation of history and physical. Last Colonoscopy: none. The patient's first colonoscopy is today. Complications: No immediate complications. Procedure: Pre-Anesthesia Assessment: - Prior to the procedure, a History and Physical was performed, and patient medications and allergies were reviewed. The patient is competent. The risks and benefits of the procedure and the sedation options and risks were discussed with the patient. All questions were answered and informed consent was obtained. Patient identification and proposed procedure were verified by the physician in the pre-procedure area. Mental Status Examination: alert and oriented. Airway Examination: normal oropharyngeal airway and neck mobility. Respiratory Examination: clear to auscultation. CV Examination: normal. Prophylactic Antibiotics: The patient does not require prophylactic antibiotics. Prior Anticoagulants: The patient has taken no anticoagulant or antiplatelet agents except for NSAID medication. ASA Grade Assessment: II - A patient with mild systemic disease. After reviewing the risks and benefits, the patient was deemed in satisfactory condition to undergo the procedure. The anesthesia plan was to use monitored anesthesia care (MAC). Immediately prior to administration of medications, the patient was re-assessed for adequacy to receive sedatives. The heart rate, respiratory rate, oxygen saturations, blood pressure, adequacy of pulmonary ventilation, and response to care were monitored throughout the procedure. The physical status of the patient was re-assessed after the procedure. After I obtained informed consent, the scope was passed under direct vision. Throughout the procedure, the patient's blood pressure, pulse, and oxygen saturations were monitored continuously. The Colonoscope was introduced through the anus and advanced to the cecum, identified by the appendiceal orifice, ileocecal valve and palpation. The colonoscopy was performed without difficulty. The patient tolerated the procedure well. Scope In: 8:15:50 AM Scope Withdrawal Time 0 hours 11 minutes 50 seconds Scope Out: 8:30:50 AM Total Procedure Duration Time 0 hours 15 minutes 0 seconds Findings: The perianal and digital rectal examinations were normal. Multiple small and large-mouthed diverticula were found in the recto-sigmoid colon, sigmoid colon, descending colon and ascending colon. No other significant abnormalities were identified in a careful examination of the remainder of the colon. Impression: - Diverticulosis in the recto-sigmoid colon, in the sigmoid colon, in the descending colon and in the ascending colon. - No specimens collected. Recommendation: - Discharge patient to home. - Resume previous diet. - Continue present medications. - Repeat colonoscopy in 10 years for screening purposes. Procedure Code(s): --- Professional --- G0121, Colorectal cancer screening; colonoscopy on individual not meeting criteria for high risk CPT copyright 2021 [employer]. All rights reserved. The codes documented in this report are preliminary and upon continuity reader review may be revised to meet current compliance requirements. Yemi Barrios DO 12/28/2024 8:36:39 AM This report has been signed electronically. Number of Addenda: 0 Note Initiated On: 12/28/2024 8:05 AM
--- NOTE | 2024-12-28 08:37 | OP.PROVAT_ITS ---
12/28/2024 Jordana Carreon Re : Colonoscopy procedure for Luis Multanir Paco This procedure was performed on December. My impressions and recommendations are as follows: Impressions : - Diverticulosis in the recto-sigmoid colon, in the sigmoid colon, in the descending colon and in the ascending colon. - No specimens collected. Recommendations : - Discharge patient to home. - Resume previous diet. - Continue present medications. - Repeat colonoscopy in 10 years for screening purposes. My findings are described in the full procedure note, which is enclosed. If I can be of further assistance, please feel free to contact me at . Sincerely, Yemi Barrios, 12/28/2024 8:36:39 AM This report has been signed electronically.
--- NOTE | 2024-12-28 08:40 | PCM.POST.ANE ---
Anesthesia: Postop Eval I Current Vital Signs Temperature: 97.7 F Pulse Rate: 94 Blood Pressure: 87/37 Respiratory Rate: 16 Pulse Ox: 95 Oxygen Delivery Method: Room Air Assessment Airway patent: Yes Spontaneous unlabored respirations: Yes Mental status: Awake and Calm nausea: No Vomiting: No Anesthesia Complication: No Fluid Hydration Crystalloid volume administer (ml): 600 Total IV fluid infused: 600 Progress Note Anesthesia document: Postop Eval 1 completed: Yes
--- NOTE | 2024-12-28 13:48 | PCM.POSTANE2 ---
Anesthesia Postop Eval I Sum Postop Eval Completion status Anesthesia document: Postop Eval 1 completed: Yes Anesthesia Postop Eval I Summary Anesthesia Postop Eval I Summary: Anesthesia Postop Eval I: Assessment Summary Airway patent Yes 12/28/24 08:40 [email or web address] Spontaneous unlabored Yes 12/28/24 08:40 [email or web address] respirations Mental status Awake,Calm 12/28/24 08:40 [email or web address] nausea No 12/28/24 08:40 [email or web address] Vomiting No 12/28/24 08:40 [email or web address] Anesthesia Postop Eval I: Fluid Summary Crystalloid volume administer 600 12/28/24 08:40 [email or web address] (ml) Colloids volume administered ( ml) Blood Product volume administered (ml) Total IV fluid infused 600 12/28/24 08:40 [email or web address] Anesthesia Postop Eval I: Summary Notes Anesthesia Complication No 12/28/24 08:40 [email or web address] Anesthesia Complication Comment: Post-operative progress note Anesthesia: Postop Eval II Evaluation Mental status: Awake and Calm Pain Level: 0 nausea: No Vomiting: No Complications Anesthesia Complication: No
== END 2024-12-28 09:20 | disposition home or self-care (01) ==
LOC: EN 06:59 → AC 07:01
PROVIDERS: PCP Nurse Practitioner Family; Referring Provider Nurse Practitioner Family; Visit Provider Internal Medicine Gastroenterology
PROC: 0DJD8ZZ Inspection of Lower Intestinal Tract, Via Natural or Artificial Opening Endoscopic (ICD-10-PCS; CPT 45378; principal; 2024-12-28 07:55)
DX: Z12.11 Encounter for screening for malignant neoplasm of colon (principal); K57.30 Diverticulosis of large intestine without perforation or abscess without bleeding; I10 Essential (primary) hypertension; Z79.899 Other long term (current) drug therapy
CPT/HCPCS: 45378; J2405

== ENCOUNTER → 2025-02-05 | Outpatient (CLI) | payer OTHER, SELFPAY ==
[2025-02-05 18:59] LABS: Hematocrit 43.7 % (40-54); Hemoglobin 15.1 g/dL (13.0-16.5); Immature Granulocytes Count 0.050 X10^3/uL (0.0-0.0); Mean Corp Hgb Conc 34.6 g/dL (32-36); Mean Corpuscular Volume 82.1 fL (80-94); Mean Platelet Vol. 14.3 fl (6.2-12.0); NRBC Flagged by Analyzer 0 % (0-5); POSITIVE COUNT YES; Platelet Count 60 K/mm3 (150-450); RBC Distribution Width CV 12.9 % (11.6-14.6); RBC Distribution Width SD 38.5 fl (35.1-43.9); Red Blood Count 5.32 M/mm3 (4.6-6.2); White Blood Count 8.9 K/mm3 (4.4-11.0)
[2025-02-05 19:16] LABS: Prothrombin Time (Protime)PT. 13.8 SECONDS (11.7-14.9)
[2025-02-05 19:17] LABS: Fibrinogen 473 mg/dl (203-444); Partial Thromboplast Time 26.7 Seconds (24.1-36.2)
[2025-02-05 19:31] LABS: FOLATES,SERUM (FOLIC ACID) 9.65 ng/mL (4.60-34.80)
[2025-02-05 21:42] LABS: AST(SGOT) 19 U/L (<=37); Alanine Aminotransfer ALT/SGPT 23 U/L (<=46); Albumin, Serum 4.2 g/dL (3.5-5.0); Alkaline Phosphatase 111 U/L (40-129); Bilirubin, Direct 0.14 mg/dL (0.00-0.30); Globulin 3.4 g/dL (2.2-4.2); Vitamin B12 489 pg/mL (180-914)
[2025-02-07 13:08] LABS: ANTINUCLEAR ANTIBODIES DIRECT Negative (Negative)
[2025-02-10 05:07] LABS: Albumin 3.5 g/dL (2.9-4.4); Copper, Serum or Plasma 121 ug/dL (69-132); Gamma Globulin 1.4 g/dL (0.4-1.8); Immunoglobulin A 271 mg/dL (90-386); Immunoglobulin G 1340 mg/dL (603-1613); Immunoglobulin M 154 mg/dL (20-172); PROEL- TOTAL PROTEIN 6.9 g/dL (6.0-8.5)
== END | disposition home or self-care (01) ==
LOC: MTLAB 15:18
PROVIDERS: PCP Nurse Practitioner Family; Referring Provider Nurse Practitioner Family; Visit Provider Nurse Practitioner Family
DX: D69.6 Thrombocytopenia, unspecified (principal); R53.83 Other fatigue
CPT/HCPCS: 36415; 80076; 82525; 82607; 82746; 82784; 84165; 85025; 85384; 85610; 85730; 86038; 86334

== ENCOUNTER → 2025-02-05 | Outpatient (CLI) | payer OTHER, SELFPAY ==
--- NOTE | 2025-02-05 18:28 | US_ITS ---
PROCEDURE: THYROID 02/05/2025 REASON FOR EXAM: THYROID NODULE TECHNIQUE: Procedure Code: USTHY Modality: US Procedure: THYROID COMPARISON: 12/02/2023 FINDINGS: Right thyroid lobe size: 5.3 x 1.8 x 1.7 cm Left thyroid lobe size: 4.8 x 1.7 x 1.5 cm Isthmus: 0.2 cm Background parenchymal echotexture is homogeneous. Nodules: 1. Lobe: Right, Location: Mid, Size: 1.0 x 0.7 x 0.7 cm, Stability: Stable Composition: Mixed cystic and solid (+1) Echogenicity: Hypoechoic (+2) Margin: Smooth (+0) Shape: Wider than tall (+0) Echogenic Foci: None (+0) TI-RADS: 3 2. Lobe: Right, Location: Lower, Size: 1.2 x 0.9 x 0.6 cm, Stability: Stable Composition: Cystic or mostly cystic (+0) Echogenicity: Hypoechoic (+2) Margin: Smooth (+0) Shape: Wider than tall (+0) Echogenic Foci: None (+0) TI-RADS: 3 US/Thyroid IMPRESSION: Stable thyroid nodules as above. RECOMMENDATION: TR 3-mildly suspicious. FNA if greater than 2.5 cm. Follow if greater than 1. 5 cm. Reading Location: [id number]
--- NOTE | 2025-02-05 18:28 | US_ITS ---
PROCEDURE: THYROID 02/05/2025 REASON FOR EXAM: THYROID NODULE TECHNIQUE: Procedure Code: USTHY Modality: US Procedure: THYROID COMPARISON: 12/02/2023 FINDINGS: Right thyroid lobe size: 5.3 x 1.8 x 1.7 cm Left thyroid lobe size: 4.8 x 1.7 x 1.5 cm Isthmus: 0.2 cm Background parenchymal echotexture is homogeneous. Nodules: 1. Lobe: Right, Location: Mid, Size: 1.0 x 0.7 x 0.7 cm, Stability: Stable Composition: Mixed cystic and solid (+1) Echogenicity: Hypoechoic (+2) Margin: Smooth (+0) Shape: Wider than tall (+0) Echogenic Foci: None (+0) TI-RADS: 3 2. Lobe: Right, Location: Lower, Size: 1.2 x 0.9 x 0.6 cm, Stability: Stable Composition: Cystic or mostly cystic (+0) Echogenicity: Hypoechoic (+2) Margin: Smooth (+0) Shape: Wider than tall (+0) Echogenic Foci: None (+0) TI-RADS: 3 US/Thyroid IMPRESSION: Stable thyroid nodules as above. RECOMMENDATION: TR 3-mildly suspicious. FNA if greater than 2.5 cm. Follow if greater than 1. 5 cm. Reading Location: [id number]
== END | disposition home or self-care (01) ==
PROVIDERS: PCP Nurse Practitioner Family; Referring Provider Nurse Practitioner Family; Visit Provider Nurse Practitioner Family
DX: E04.1 Nontoxic single thyroid nodule (principal)
CPT/HCPCS: 76536

== ENCOUNTER → 2025-02-27 | Outpatient (CLI) | payer OTHER, SELFPAY ==
--- NOTE | 2025-02-27 07:36 | US_ITS ---
PROCEDURE: US/Abdomen Complete
== END | disposition home or self-care (01) ==
PROVIDERS: PCP Nurse Practitioner Family; Referring Provider Internal Medicine Medical Oncology; Visit Provider Internal Medicine Medical Oncology
DX: D69.6 Thrombocytopenia, unspecified (principal)
CPT/HCPCS: 76700

== ENCOUNTER → 2025-03-26 | Outpatient (CLI) | payer OTHER, SELFPAY ==
--- NOTE | 2025-03-26 09:38 | US_ITS ---
PROCEDURE: ELASTOGRAPHY PARENCHYMA/ORGAN 03/26/2025 REASON FOR EXAM: IRON DEF TECHNIQUE: Procedure Code: USELPAROG Modality: US Procedure: ELASTOGRAPHY PARENCHYMA/ORGAN COMPARISON: None FINDINGS: KPA: 5.6 cm. Velocity: 1.35 m/sec. Metavir score: F 0/F 1 US/Elastography Parenchyma/Organ IMPRESSION: Normal to mild hepatic fibrosis. Reading Location: [place] [id number]
== END | disposition home or self-care (01) ==
LOC: US 09:37
PROVIDERS: PCP Nurse Practitioner Family; Referring Provider Internal Medicine Medical Oncology; Visit Provider Internal Medicine Medical Oncology
DX: K76.0 Fatty (change of) liver, not elsewhere classified (principal); D69.6 Thrombocytopenia, unspecified; E61.1 Iron deficiency
CPT/HCPCS: 76981